=== PATIENT | female | born 2000 | race Caucasian/White ===

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

== ENCOUNTER 2021-01-30 17:37 | Emergency (ER) | payer OTHER ==
[~2021-01-30] VITALS: Ht 160 cm; Wt 95.8 kg
[~2021-01-30 17:37] MED LIST changes: +LEXA1TAB2 PO
[2021-01-30] MEDS ORDERED: BUPR150T12 (17:52)
[2021-01-30] MEDS ORDERED: PRAZ2CAP (17:52)
[2021-01-31 01:14] VITALS: BP 124/74
== END 2021-01-31 01:19 | disposition left against medical advice (07) ==
LOC: M ED 17:37
DX: Z53.21 Procedure and treatment not carried out due to patient leaving prior to being seen by health care provider (principal)

== ENCOUNTER → 2021-03-09 | Outpatient (CLI) | payer OTHER ==
[~2021-03-09] MED LIST changes: +BUPR150T12; +PRAZ2CAP
[2021-03-09 09:45] LABS: BASO # 0.1 10^3/uL (0.0-0.2); BASO % 0.8 % (0.0-1.0); EOS # 0.2 10^3/uL (0.0-0.5); EOS % 2.5 % (0.0-3.0); HEMATOCRIT 40.9 % (36.0-47.0); HEMOGLOBIN 13.3 g/dl (12.0-15.5); LYMPH # 2.7 10^3/uL (1.5-5.0); LYMPH % 37.1 % (24.0-44.0); MEAN CORPUSCULAR HEMOGLOBIN 27.7 pg (27.0-33.0); MEAN CORPUSCULAR HGB CONC 32.5 g/dl (32.0-36.5); MONO # 0.7 10^3/uL (0.0-0.8); MONO % 9.6 % (2.0-8.0); NEUTROPHILS # 3.6 10^3/uL (1.5-8.5); NEUTROPHILS % 49.6 % (36.0-66.0); PLATELET COUNT, AUTOMATED 289 10^3/uL (150-450); RED BLOOD COUNT 4.81 10^6/uL (4.00-5.40); WHITE BLOOD COUNT 7.2 10^3/uL (4.0-10.0)
[2021-03-09 10:42] LABS: HEMOGLOBIN A1c 5.1 %
[2021-03-09 11:04] LABS: ALBUMIN 3.5 GM/DL (3.2-5.2); ALT/SGPT 26 U/L (12-78); BILIRUBIN,TOTAL 0.4 MG/DL (0.2-1.0); BLOOD UREA NITROGEN 10 MG/DL (7-18); CALCIUM LEVEL 8.5 MG/DL (8.5-10.1); CARBON DIOXIDE LEVEL 29 MEQ/L (21-32); CHLORIDE LEVEL 107 MEQ/L (98-107); CHOLESTEROL LEVEL 114 MG/DL (<200); CHOLESTEROL RISK RATIO 2.235 (<5); CREATININE FOR GFR 0.67 MG/DL (0.55-1.30); GLUCOSE, FASTING 75 MG/DL (70-100); HDL CHOLESTEROL 51 MG/DL (>40); LDL CHOLESTEROL 42 MG/DL (<100); NON-HDL-C 63 MG/DL; POTASSIUM SERUM 3.7 MEQ/L (3.5-5.1); SODIUM LEVEL 141 MEQ/L (136-145); THYROID STIMULATING HORMONE 0.676 uIU/ML (0.463-3.98); TRIGLYCERIDES LEVEL 104 MG/DL (<150)
== END ==
LOC: M LAB 08:47
PROVIDERS: ATTEND Nurse Practitioner Family
DX: Z00.01 Encounter for general adult medical examination with abnormal findings (principal)

== ENCOUNTER 2021-03-17 11:53 | Emergency (ER) | payer OTHER ==
[~2021-03-17] VITALS: Ht 160 cm; Wt 93.8 kg
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
--- OUTSIDE RECORDS SUMMARY | 2021-03-17 11:59 | CCD ---
Author Author [facility] Organization [facility] Address Unknown Phone Unavailable Care Team Providers Care Donor Services Manager Name Role Phone PRATIK KIRBY MD Unavailable Unavailable PRATIK KIRBY MD Unavailable Unavailable PRATIK KIRBY MD Unavailable Unavailable PRATIK KIRBY MD Unavailable Unavailable PRATIK KIRBY MD Unavailable Unavailable PRATIK KIRBY MD Unavailable Unavailable PRATIK KIRBY MD Unavailable Unavailable PRATIK KIRBY MD Unavailable Unavailable REYES, A. CLOTH TRIMMER HAND AVIVA Unavailable [phone] REYES, A. CLOTH TRIMMER HAND AVIVA Unavailable [phone] REYES, A. CLOTH TRIMMER HAND AVIVA Unavailable [phone] REYES, A. CLOTH TRIMMER HAND AVIVA Unavailable [phone] REYES, A. CLOTH TRIMMER HAND AVIVA Unavailable [phone] REYES, A. CLOTH TRIMMER HAND AVIVA Unavailable [phone] REYES, A. CLOTH TRIMMER HAND AVIVA Unavailable [phone] REYES, A. CLOTH TRIMMER HAND AVIVA Unavailable [phone] REYES, A. CLOTH TRIMMER HAND AVIVA Unavailable [phone] REYES, A. CLOTH TRIMMER HAND AVIVA Unavailable [phone] REYES, A. CLOTH TRIMMER HAND AVIVA Unavailable [phone] REYES, A. CLOTH TRIMMER HAND AVIVA Unavailable [phone] REYES, A. CLOTH TRIMMER HAND AVIVA Unavailable [phone] REYES, A. CLOTH TRIMMER HAND AVIVA Unavailable [phone] REYES, A. CLOTH TRIMMER HAND AVIVA Unavailable [phone] Nevills, C Noemy QUALITY CONTROL DIRECTOR Unavailable Unavailable Nevills, C Noemy QUALITY CONTROL DIRECTOR Unavailable Unavailable Nevills, C Noemy QUALITY CONTROL DIRECTOR Unavailable Unavailable Nevills, C Noemy QUALITY CONTROL DIRECTOR Unavailable Unavailable Nevills, C Noemy QUALITY CONTROL DIRECTOR Unavailable Unavailable Nevills, C Noemy QUALITY CONTROL DIRECTOR Unavailable Unavailable Nevills, C Noemy QUALITY CONTROL DIRECTOR Unavailable Unavailable Nevills, C Noemy QUALITY CONTROL DIRECTOR Unavailable Unavailable Nevills, C Noemy QUALITY CONTROL DIRECTOR Unavailable Unavailable Nevills, C Noemy QUALITY CONTROL DIRECTOR Unavailable Unavailable Nevills, C Noemy QUALITY CONTROL DIRECTOR Unavailable Unavailable Nevills, C Noemy QUALITY CONTROL DIRECTOR Unavailable Unavailable Nevills, C Noemy QUALITY CONTROL DIRECTOR Unavailable Unavailable Nevills, C Noemy QUALITY CONTROL DIRECTOR Unavailable Unavailable Nevills, C Noemy QUALITY CONTROL DIRECTOR Unavailable Unavailable Nevills, C Noemy QUALITY CONTROL DIRECTOR Unavailable Unavailable Nevills, C Noemy QUALITY CONTROL DIRECTOR Unavailable Unavailable Nevills, C Noeym QUALITY CONTROL DIRECTOR Unavailable Unavailable Nevills, C Noemy QUALITY CONTROL DIRECTOR Unavailable Unavailable Nevills, C Noemy QUALITY CONTROL DIRECTOR Unavailable Unavailable Nevills, C Noemy QUALITY CONTROL DIRECTOR Unavailable Unavailable Nevills, C Noemy QUALITY CONTROL DIRECTOR Unavailable Unavailable Nevills, C Noemy QUALITY CONTROL DIRECTOR Unavailable Unavailable Nevills, C Noemy QUALITY CONTROL DIRECTOR Unavailable Unavailable Nevills, C Noemy QUALITY CONTROL DIRECTOR Unavailable Unavailable Nevills, C Noemy QUALITY CONTROL DIRECTOR Unavailable Unavailable Nevills, C Noemy QUALITY CONTROL DIRECTOR Unavailable Unavailable Nevills, C Noemy QUALITY CONTROL DIRECTOR Unavailable Unavailable Nevills, C Noemy QUALITY CONTROL DIRECTOR Unavailable Unavailable Nevills, C Noemy QUALITY CONTROL DIRECTOR Unavailable Unavailable Nevills, C Noemy QUALITY CONTROL DIRECTOR Unavailable Unavailable Nevills, C Noemy QUALITY CONTROL DIRECTOR Unavailable Unavailable Nevills, C Noemy QUALITY CONTROL DIRECTOR Unavailable Unavailable Josephine Celaya MD Unavailable Unavailable Josephine Celaya MD Unavailable Unavailable Josephine Celaya MD Unavailable Unavailable Josephine Celaya MD Unavailable Unavailable Josephine Celaya MD Unavailable Unavailable Josephine Celaya MD Unavailable Unavailable Josephine Celaya MD Unavailable Unavailable Josephine Celaya MD Unavailable Unavailable Josephine Celaya MD Unavailable Unavailable Josephine Celaya MD Unavailable Unavailable Josephine Celaya MD Unavailable Unavailable Josephine Celaya MD Unavailable Unavailable Josephine Celaya MD Unavailable Unavailable Josephine Celaya MD Unavailable Unavailable Josephine Celaya MD Unavailable Unavailable Josephine Celaya MD Unavailable Unavailable Josephine Celaya MD Unavailable Unavailable Josephine Celaya MD Unavailable Unavailable Josephine Celaya MD Unavailable Unavailable MAJAK, R RAEGAN DPM Unavailable Unavailable MAJAK, R RAEGAN DPM Unavailable Unavailable MAJAK, R RAEGAN DPM Unavailable Unavailable MAJAK, R RAEGAN DPM Unavailable Unavailable MAJAK, R RAEGAN DPM Unavailable Unavailable MAJAK, R RAEGAN DPM Unavailable Unavailable MAJAK, R RAEGAN DPM Unavailable Unavailable MAJAK, R RAEGAN DPM Unavailable Unavailable MAJAK, R RAEGAN DPM Unavailable Unavailable MAJAK, R RAEGAN DPM Unavailable Unavailable MAJAK, R RAEGAN DPM Unavailable Unavailable MAJAK, R RAEGAN DPM Unavailable Unavailable MAJAK, R RAEGAN DPM Unavailable Unavailable MAJAK, R RAEGAN DPM Unavailable Unavailable MAJAK, R RAEGAN DPM Unavailable Unavailable MAJAK, R RAEGAN DPM Unavailable Unavailable MAJAK, R RAEGAN DPM Unavailable Unavailable MAJAK, R RAEGAN DPM Unavailable Unavailable MAJAK, R RAEGAN DPM Unavailable Unavailable MAJAK, R RAEGAN DPM Unavailable Unavailable MAJAK, R RAEGAN DPM Unavailable Unavailable MAJAK, R RAEGAN DPM Unavailable Unavailable MAJAK, R RAEGAN DPM Unavailable Unavailable MAJAK, R RAEGAN DPM Unavailable Unavailable MAJAK, R RAEGAN DPM Unavailable Unavailable MAJAK, R RAEGAN DPM Unavailable Unavailable MAJAK, R RAEGAN DPM Unavailable Unavailable MAJAK, R RAEGAN DPM Unavailable Unavailable MAJAK, R RAEGAN DPM Unavailable Unavailable MAJAK, R RAEGAN DPM Unavailable Unavailable MAJAK, R RAEGAN DPM Unavailable Unavailable Agata Peña LMSW Unavailable Unavailable Nevills, Zee Salguero QUALITY CONTROL DIRECTOR Unavailable Unavailable Nevills, C Noemy QUALITY CONTROL DIRECTOR Unavailable Unavailable Nevills, C Noemy QUALITY CONTROL DIRECTOR Unavailable Unavailable Nevills, C Noemy QUALITY CONTROL DIRECTOR Unavailable Unavailable Nevills, C Noemy QUALITY CONTROL DIRECTOR Unavailable Unavailable Nevills, C Noemy QUALITY CONTROL DIRECTOR Unavailable Unavailable Nevills, C Noemy QUALITY CONTROL DIRECTOR Unavailable Unavailable Nevills, C Noemy QUALITY CONTROL DIRECTOR Unavailable Unavailable Nevills, C Noemy QUALITY CONTROL DIRECTOR Unavailable Unavailable Nevills, C Noemy QUALITY CONTROL DIRECTOR Unavailable Unavailable Nevills, C Noemy QUALITY CONTROL DIRECTOR Unavailable Unavailable Nevills, C Noemy QUALITY CONTROL DIRECTOR Unavailable Unavailable Nevills, C Noemy QUALITY CONTROL DIRECTOR Unavailable Unavailable Nevills, C Noemy QUALITY CONTROL DIRECTOR Unavailable Unavailable Nevills, C Noemy QUALITY CONTROL DIRECTOR Unavailable Unavailable Nevills, C Noemy QUALITY CONTROL DIRECTOR Unavailable Unavailable Nevills, C Noemy QUALITY CONTROL DIRECTOR Unavailable Unavailable Nevills, C Noemy QUALITY CONTROL DIRECTOR Unavailable Unavailable Nevills, C Noemy QUALITY CONTROL DIRECTOR Unavailable Unavailable Nevills, C Noemy QUALITY CONTROL DIRECTOR Unavailable Unavailable Nevills, C Noemy QUALITY CONTROL DIRECTOR Unavailable Unavailable Nevills, C Noemy QUALITY CONTROL DIRECTOR Unavailable Unavailable Nevills, C Noemy QUALITY CONTROL DIRECTOR Unavailable Unavailable Nevills, C Noemy QUALITY CONTROL DIRECTOR Unavailable Unavailable Nevills, C Noemy QUALITY CONTROL DIRECTOR Unavailable Unavailable Nevills, C Noemy QUALITY CONTROL DIRECTOR Unavailable Unavailable Nevills, C Noemy QUALITY CONTROL DIRECTOR Unavailable Unavailable Nevills, C Noemy QUALITY CONTROL DIRECTOR Unavailable Unavailable Nevills, C Noemy QUALITY CONTROL DIRECTOR Unavailable Unavailable Nevills, C Noemy QUALITY CONTROL DIRECTOR Unavailable Unavailable Nevills, C Noemy QUALITY CONTROL DIRECTOR Unavailable Unavailable Nevills, C Noemy QUALITY CONTROL DIRECTOR Unavailable Unavailable Nevills, C Noemy QUALITY CONTROL DIRECTOR Unavailable Unavailable LAMPACK, JERMAINE Unavailable Unavailable COTO, J TOMAS PA Unavailable Unavailable COTO, J TOMAS PA Unavailable Unavailable COTO, J TOMAS PA Unavailable Unavailable COTO, J TOMAS PA Unavailable Unavailable COTO, J TOMAS PA Unavailable Unavailable COTO, J TOMAS PA Unavailable Unavailable COTO, J TOMAS PA Unavailable Unavailable COTO, J TOMAS PA Unavailable Unavailable COTO, J TOMAS PA Unavailable Unavailable COTO, J TOMAS PA Unavailable Unavailable COTO, J TOMAS PA Unavailable Unavailable COTO, J TOMAS PA Unavailable Unavailable COTO, J TOMAS PA Unavailable Unavailable COTO, J TOMAS PA Unavailable Unavailable COTO, J TOMAS PA Unavailable Unavailable COTO, J TOMAS PA Unavailable Unavailable COTO, J TOMAS PA Unavailable Unavailable COTO, J TOMAS PA Unavailable Unavailable COTO, J TOMAS PA Unavailable Unavailable COTO, J TOMAS PA Unavailable Unavailable COTO, J TOMAS PA Unavailable Unavailable COTO, J TOMAS PA Unavailable Unavailable COTO, J TOMAS PA Unavailable Unavailable COTO, J TOMAS PA Unavailable Unavailable Valerie COTO TOMAS PA Unavailable Unavailable Valerie COTO TOMAS PA Unavailable Unavailable Valerie COTO TOMAS PA Unavailable Unavailable Re-disclosure Warning The records that you are about to access may contain information from federally-assisted alcohol or drug abuse programs. If such information is present, then the following federally mandated warning applies: This information has been disclosed to you from records protected by federal confidentiality rules (42 CFR part 2). The federal rules prohibit you from making any further disclosure of this information unless further disclosure is expressly permitted by the written consent of the person to whom it pertains or as otherwise permitted by 42 CFR part 2. A general authorization for the release of medical or other information is NOT sufficient for this purpose. The Federal rules restrict any use of the information to criminally investigate or prosecute any alcohol or drug abuse patient.The records that you are about to access may contain highly sensitive health information, the redisclosure of which is protected by Article 27-F of the [facility] Public Health law. If you continue you may have access to information: Regarding HIV / AIDS; Provided by facilities licensed or operated by the [facility] Office of Mental Health; or Provided by the [facility] Office for People With Developmental Disabilities. If such information is present, then the following [facility] mandated warning applies: This information has been disclosed to you from confidential records which are protected by state law. State law prohibits you from making any further disclosure of this information without the specific written consent of the person to whom it pertains, or as otherwise permitted by law. Any unauthorized further disclosure in violation of state law may result in a fine or mcc sentence or both. A general authorization for the release of medical or other information is NOT sufficient authorization for further disc losure. Allergies and Adverse Reactions Type Description Substance Reaction Status Data Source(s ) Propensity to adverse reactions NO KNOWN ALLERGIES NO KNOWN ALLERGIES [facility] Encounters Encounter Providers Location Date Indications Data Source(s ) Outpatient Attender: AVIVA CHAMBERS 02/27 07:26:39 AM EDT - 03/09/2021 07:50:34 AM EDT [facility] ([facility] ) Outpatient Attender: TOMAS COTO PAAttender: JERMAINE HUNT 02/10/2021 12:37:00 PM EDT - 02/10/2021 12:37:00 PM EDT [facility] Outpatient Attender: TOMAS COTO PAAttender: JERMAINE UMANA GILBERT 02/10/2021 12:37:00 PM EDT - 02/10/2021 12:37:00 PM EDT [facility] Outpatient Attender: JERMAINE UMANAGILBERT 2020 02:51:00 PM EDT - 01/26/2021 02:51:00 PM EDT [facility] Outpatient Attender: JERMAINE UMANAGILBERT 2020 01:37:00 PM EDT - 01/01/2021 01:37:00 PM EDT [facility] Outpatient Attender: JERMAINE UMANAGILBERT 2020 01:55:00 PM EDT - 12/08/2020 01:55:00 PM EDT [facility] Outpatient Attender: TOMAS TSAI 11/19 02:41:00 PM EDT - 11/19/2020 02:41:00 PM EDT [facility] Outpatient Attender: JERMAINE AVELAR 2020 01:56:00 PM EDT - 11/19/2020 01:56:00 PM EDT [facility] Outpatient Attender: JERMAINE UMANAGILBERT 2020 02:13:00 PM EDT - 11/12/2020 02:13:00 PM EDT [facility] Inpatient Attender: PRATIK Best nder: Josephine Celaya MDAdmitter: PRATIK KIRBY MD [id number] 11/06/2020 12:58:00 AM EDT - 11/10/2020 11:33:00 AM EDT Major depressive disorder, single episode, unspecified [facility] Major depressive disorder, single episod e, unspecified Patient discharged. Outpatient Attender: Shannon Peña LMSW 01/2021 11:59:00 AM EDT - 11/05/2020 11:59:00 AM EDT [facility] Outpatient Attender: Noemy Diggs NP 10/16 01:43:00 PM EDT - 10/16/2020 01:43:00 PM EDT [facility] 08[facility]00 AM [facility]T [facility] Outpatient Attender: Noemy Diggs NP [facility] 09/12 10:20:00 AM EDT [facility] ([facility]) Outpatient Attender: Noemy Diggs QUALITY CONTROL DIRECTOR 09/12 10:06:00 AM EDT - 09/12/2020 10:06:00 AM EDT [facility] Outpatient Attender: RAEGAN RICO [facility] Office 08/28 08:00:00 AM EDT [facility] ([facility] Outpatient Attender: Noemy Diggs QUALITY CONTROL DIRECTOR 08/27 01:20:00 PM EDT - 08/27/2020 01:20:00 PM EDT [facility] Immunizations Vaccine Date Status Description Data Source(s) COVID-19 VACCINE Moderna 02/12/2021 12:00:00 AM EDT completed [facility] Vaccine Series Complete: YESThis Data wa s Submitted to [facility] Via [employer]. COVID-19 VACCINE Moderna 11/12/2020 12:00:00 AM EDT completed [facility] Vaccine Series Complete: NOThis Data was Submitted to [facility] Via [employer]. Medications Medication Brand Name Start Date Product Form Dose Route Admi nistrative Instructions Pharmacy Instructions Status Indications Reaction Description Data Source(s) 24 HR Bupropion Hydrochloride 150 MG Extended Release Oral T ablet BUPROPION HCL 02/05/2021 12:00:00 AM EDT tablet extended release 24 hr 30 TAKE ONE TABLET BY MOUTH EVERY DAY TAKE ONE TABLET BY MOUTH EVERY DAY SOLD: 02/06/2021 [facility] 2 mg 02/05/2021 12:00:00 AM EDT capsule 30 TAKE ONE CAPSULE BY MOUTH AT BEDTIME TAKE ONE CAPSULE BY MOUTH AT BEDTIME SOLD: 02/06/2021 [facility] Escitalopram 20 MG Oral Tablet ESCITALOPRAM OXALATE 02/05/2021 1 2:00:00 AM EDT tablet 30 TAKE ONE TABLET BY MOUTH EVERY D AY TAKE ONE TABLET BY MOUTH EVERY DAY SOLD: 02/06/2021 [facility] 2 mg 12/12/2020 12:00:00 AM EDT capsule 30 TAKE ONE CAPSULE BY MOUTH AT BEDTIME TAKE ONE CAPSULE BY MOUTH AT BEDTIME SOLD: 12/13/2020 [facility] 24 HR Bupropion Hydrochloride 150 MG Extended Release Oral T ablet BUPROPION HCL 12/12/2020 12:00:00 AM EDT tablet extended release 24 hr 30 TAKE ONE TABLET BY MOUTH EVERY DAY TAKE ONE TABLET BY MOUTH EVERY DAY SOLD: 12/13/2020 [facility] Escitalopram 20 MG Oral Tablet ESCITALOPRAM OXALATE 12/02/2020 1 2:00:00 AM EDT tablet 30 TAKE ONE TABLET BY MOUTH EVERY D AY TAKE ONE TABLET BY MOUTH EVERY DAY SOLD: 12/13/2020 [facility] 24 HR Bupropion Hydrochloride 150 MG Ext ended Release Oral Tablet buPROPion (WELLBUTRIN XL) 24 hr tablet 150 mg buPROPion (WELLBUTRIN XL) 24 hr tablet 1 50 mg 11/11/2020 09:00:00 AM EDT 150 mg Oral active 150 mg, Oral, Daily Standard, First dose on Tue11/11/20 at 0900, For 30 days
Do not crush or chew
[facility] Medication administered onsite 24 HR Bupropion Hydrochloride 150 MG Ext ended Release Oral Tablet buPROPion HCl ER (XL) 150 MG Oral Tablet Extended Release 24 Hour (WELLBUTRIN XL) buPROPion HCl ER (XL) 150 MG Oral Tablet Extended Release 24 Hour (WELLBUTRIN XL) 11/11/2020 12:00:00 AM EDT 150 mg Oral active Take 1 tablet by mouth daily [facility] Escitalopram 10 MG Oral Tablet Escitalopram Oxalate 10 MG Oral Tablet (LEXAPRO) Escitalopram Oxalate 10 MG Oral Tablet (LEXAPRO) 11/10/2020 12:00:00 AM EDT 20 mg Oral active Major Depressive Disorder Take 2 tablets by mouth daily Indications: Major Depressive Disorder [facility] Major Depressive Disorder Prazosin 2 MG Oral Capsule Prazosin HCl 2 MG Oral Caps ule (MINIPRESS) Prazosin HCl 2 MG Oral Capsule (MINIPRESS) 11/10/2020 12:00:00 AM EDT 2 mg Oral active Take 1 capsule by mouth nightly [facility] 2 mg 11/10/2020 12:00:00 AM EDT capsule 30 TAKE ONE CAPSULE BY MOUTH EVERY EVENING TAKE ONE CAPSULE BY MOUTH EVERY EVENING SOLD: 11/10/2020 [facility] 24 HR Bupropion Hydrochloride 150 MG Extended Release Oral T ablet BUPROPION HCL 11/10/2020 12:00:00 AM EDT tablet extended release 24 hr 30 TAKE ONE TABLET BY MOUTH EVERY DAY TAKE ONE TABLET BY MOUTH EVERY DAY SOLD: 11/10/2020 [facility] Prazosin 1 MG Oral Capsule prazosin (MINIPRESS) capsul e 2 mg prazosin (MINIPRESS) capsule 2 mg 11/08/2020 10:00:00 PM EDT 2 mg Oral active 2 mg, Oral, Nightly, First dose (after last modification) on [facility] 11/08/20 at 2200, For 28 doses
Check vital signs before administering
[facility] Medication administered onsite 12 HR Bupropion Hydrochloride 150 MG Ext ended Release Oral Tablet buPROPion (WELLBUTRIN SR) 12 hr tablet 150 mg buPROPion (WELLBUTRIN SR) 12 hr tablet 1 50 mg 11/07/2020 11:30:00 AM EDT 150 mg Oral aborted 150 mg, Oral, User Specified (2 times per day), First dose on Tue11/07/20 at 1130, For 30 days
Do not crush or chew
[facility] Medication administered onsite Prazosin 1 MG Oral Capsule prazosin (MINIPRESS) capsul e 1 mg prazosin (MINIPRESS) capsule 1 mg 11/06/2020 10:00:00 PM EDT 1 mg Oral aborted 1 mg, Oral, Nightly, First dose on [facility] 11/06/20 at 2200, For 30 days
Check vital signs before administering
[facility] Medication administered onsite Escitalopram 10 MG Oral Tablet escitalopram (LEXAPRO) tablet 20 mg escitalopram (LEXAPRO) tablet 20 mg 11/06/2020 09:00:00 AM EDT 20 mg Oral active Major Depressive Disorder 20 mg, Oral, Daily Standard , First dose on [facility] 11/06/20 at 0900, For 30 days [facility] Major Depressive Disorder Medication administered onsite acetaminophen (TYLENOL) tablet 650 mg 11/06/2020 05:50:40 AM EDT 650 mg Oral active [Order 1 Start ] Name: acetaminophen (TYLENOL) tablet 650 mg Signed Summary: 650 mg, Oral, Every 4 hours PRN, Mild Pain (Pain Scale Score 1-3), Headaches, Starting on Tue11/06/20 at 0550, For 30 days
MDD 4
[Order 1 End] [Order 2 Start] Name: acetaminophen (TYLENOL) tablet 650 mg Signed Summary: 650 mg, Oral, Every 4 hours PRN, Moderate Pain (Pain Scale Score 4- 6), Starting on Tue11/06/20 at 0550, For 30 days
MDD 4
[Order 2 End] [Order 3 Start] Name: acetaminophen (TYLENOL) tablet 650 mg Signed Summary: 650 mg, Oral, Every 4 hours PRN, Severe Pain (Pain Scale Score 7-10), Starting on Tue11/06/20 at 0550, For 30 days
MDD 4
[Order 3 End] [facility] Medication administered onsite Haloperidol 5 MG Oral Tablet haloperidol (HALDOL) tabl et 5 mg haloperidol (HALDOL) tablet 5 mg 11/06/2020 05:50:39 AM EDT 5 mg Oral active 5 mg, Oral, Every 6 hours PRN, Agitation, Psychotic symptoms, Starting on Tue11/06/20 at 0550, For 30 days
MDD 4
[facility] Medication administered onsite Nicotine 2 MG Oral Lozenge nicotine (NICORETTE) lozeng e 2 mg nicotine (NICORETTE) lozenge 2 mg 11/06/2020 05:50:39 AM EDT 2 mg Mouth/Th roat active 2 mg, Mouth/Throat, Every 2 hours PRN, Smoking cessation, Starting on Tue11/06/20 at 0550, For 30 days
Should not be chewed or swallowed; allow to dissolve slowly (~20-30 minutes)
[facility] Medication administered onsite Ondansetron 4 MG Disintegrating Oral Tab let ondansetron (ZOFRAN-ODT) disintegrating tablet 4 mg ondansetron (ZOFRAN-ODT) disintegrating tablet 4 mg 11/06/2020 05:50:39 AM EDT 4 mg Oral active 4 mg, Oral, Every 6 hours PRN, Nausea, Starting on Tue11/06/20 at 0550, For 30 days
Dissolve on tongue.
[facility] Medication administered onsite Aluminum Hydroxide 40 MG/ML / Magnesium Hydroxide 40 MG/ML / Simethicone 4 MG/ML Oral Suspension aluminum & magnesium hydroxide-simethicone (MAALOX PLUS) 200-200-20 MG/5ML oral suspension 30 mL aluminum & magnesium hydroxide- simethicone (MAALOX PLUS) 200-200-20 MG/5ML oral suspension 30 mL 11/06/2020 05:50:39 AM EDT 30 mL Oral active 30 mL, Oral, Every 4 hours PRN, Heartburn, Indigestion, Starting on [facility] 11/06/20 at 0550, For 30 days
MDD 4
[facility] Medication administered onsite Hydroxyzine Hydrochloride 50 MG Oral Tablet hydrOXYzin e (ATARAX) tablet 50 mg hydrOXYzine (ATARAX) tablet 50 mg 11/06/2020 05:50:39 AM EDT 50 mg Oral active 50 mg, Oral, Every 6 hours PRN, Anxiety, Sleep, Starting on [facility] 11/06/20 at 0550, For 30 days [facility] Medication administered onsite Magnesium Hydroxide 80 MG/ML Oral Suspen dong magnesium hydroxide (MILK OF MAGNESIA) 400 MG/5ML oral suspension 30 mL magnesium hydroxide (MILK OF MAGNESIA) 400 MG/5ML oral suspension 30 mL 11/06/2020 05:50:39 AM EDT 30 mL Oral active 30 mL, Oral, D aily PRN, Constipation, Starting on [facility] 11/06/20 at 0550, For 30 days
If serum creatinine > 2 notify provider before administering.
[facility] Medication administered onsite Escitalopram 20 MG Oral Tablet ESCITALOPRAM OXALATE 11/03/2020 1 2:00:00 AM EDT tablet 30 TAKE ONE TABLET BY MOUTH EVERY D AY TAKE ONE TABLET BY MOUTH EVERY DAY SOLD: 11/10/2020 [facility] Escitalopram 20 MG Oral Tablet ESCITALOPRAM OXALATE 10/08/2020 1 2:00:00 AM EDT tablet 30 TAKE ONE TABLET BY MOUTH EVERY D AY TAKE ONE TABLET BY MOUTH EVERY DAY SOLD: 10/09/2020 [facility] Escitalopram 20 MG Oral Tablet [Lexapro] Lexapro 09/12/2020 12:00: 00 AM EDT ORAL active [facility] ([facility]) Hydrocortisone 10 MG/ML / Neomycin 3.5 M G/ML / Polymyxin B 71176 UNT/ML Otic Solution 3.5-10,000-1 mg/mL-unit/mL-% NEOMYCIN/POLYMYXIN B/HYDROCORT 09/12/2020 12:00:00 AM EDT solution 10 APPLY ONE DROP T O BASE OF NAIL AFTER BETADINE SOAKS DIRECTED APPLY ONE DROP TO BASE OF NAIL AFTER BET ADINE SOAKS DIRECTED SOLD: 09/12/2020 [facility] Escitalopram 20 MG Oral Tablet ESCITALOPRAM OXALATE 09/12/2020 1 2:00:00 AM EDT tablet 30 TAKE ONE TABLET BY MOUTH EVERY D AY TAKE ONE TABLET BY MOUTH EVERY DAY SOLD: 09/12/2020 [facility] Hydrocortisone 10 MG/ML / Neomycin 3.5 M G/ML / Polymyxin B 24809 UNT/ML Otic Solution Pcdyqryu-Vzazoiclh-FP 09/11/2020 12:00:00 AM EDT active [facility] No Active Medications 09/11/2020 12:00:00 AM EDT completed [facility] ([facility] No Active Medications 08/27/2020 12:00:00 AM EDT completed [facility] ([facility]) 0.35 mg 05/30/2020 12:00:00 AM EST tablet 84 TAKE ONE TABLET BY MOUTH EVERY DAY TAKE ONE TABLET BY MOUTH EVERY DAY SOLD: 06/01/2020 [facility] Escitalopram 10 MG Oral Tablet Escitalopram Oxalate 10 MG Oral Tablet (LEXAPRO) Escitalopram Oxalate 10 MG Oral Tablet (LEXAPRO) 20 mg Oral aborted Major Depressive Disorder Take 20 mg by mouth daily In dications: Major Depressive Disorder [facility] Major Depressive Disorder Ranitidine 150 MG Oral Tablet ranitidine (ZANTAC) 150 MG tablet ranitidine (ZANTAC) 150 MG tablet 150 mg Oral aborted Take 150 mg by mouth Two Times Daily [facility] Insurance Providers Payer name Policy type / Coverage type Policy ID Covered constitution party ID Covered constitution party's relationship to bettencourt Policy [employer] Plan Information [facility] I [id number] Self [id number] [facility] MCDHMO [id number] SP [id number] [facility] I [id number] Self [id number] [facility] I [id number] Self [id number] [facility] COMMUNITY PL [id number] S [id number] [facility] Commercial Insurance Co. [id number] Self [id number] [facility] Commercial Insurance Co. [id number] Self [id number] [facility] XIX MC [id number] 18 [id number] [facility] COMMUNTY PLAN MC [id number] 18 [id number] MEDICAID [id number] S [id number] SELF PAY S BH [facility] COMMUNITY PLAN CO [id number] 18 [id number] [facility](MCAID) O [id number] S [id number] [facility] MCDO [id number] SP [id number] [facility] MCDO [id number] SP [id number] HMO BLUE [id number] SP [id number] Problems, Conditions, and Diagnoses Code Display Name Description Problem Type Effective Dates Data Source(s) F419 Anxiety disorder, unspecified Anxiety disorder, unspec ified Diagnosis 02/10/2021 12:37:00 PM [facility] F609 Personality disorder, unspecified Personality di sorder, unspecified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 98.034 kg [facility] ([facility]) Body height 63 [in_i] 63 [in_i] [facility] ([facility]) 5'3" Body mass index (BMI) [Ratio] 38.3 kg/m2 38.3 k g/m2 [facility] ([facility]) Heart rate 72 /min 72 /min [facility] ([facility]) Respiratory rate 18 /min 18 /min [facility] ( [facility]) Heart rate 74 /min 74 /min [facility] ([facility]) Systolic blood pressure 124 mm[Hg] 124 mm[Hg] [facility] ([facility]) Body height 63 [in_i] 63 [in_i] [facility] ([facility]) 5'3" Body height [Percentile] 31 % 31 % [facility] ([facility]) Body mass index (BMI) [Ratio] 38.4 kg/m2 38.4 k g/m2 [facility] ([facility]) Body mass index (BMI) [Percentile] 98 % 9 8 % [facility] ([facility]) Diastolic blood pressure 82 mm[Hg] 82 mm[Hg] [facility] ([facility]) Body temperature 97.9 [degF] 97.9 [degF] [facility] ([facility]) Oxygen saturation in Arterial blood by Pulse oximetry 98 % 98 % [facility] ([facility]) Body weight 217.00 [lb_av] 217.00 [lb_av] [facility] T ([facility]) Body weight 98.431 kg 98.431 kg [facility] ([facility]) Body surface area Derived from formula 2.00 m2 2.00 m2 [facility] ([facility]) Systolic blood pressure 132 mm[Hg] 132 mm[Hg] M [facility] ([facility] Diastolic blood pressure 84 mm[Hg] 84 mm[Hg] [facility] ([facility] Body height 63 [in_i] 63 [in_i] [facility] ([facility] 5'3" Body weight 217.00 [lb_av] 217.00 [lb_av] [facility] T ([facility] Heart rate 100 /min 100 /min [facility] ([facility] Body mass index (BMI) [Ratio] 38.4 kg/m2 38.4 k g/m2 [facility] ([facility] Body height [Percentile] 31 % 31 % [facility] ([facility]) Body height 63 [in_i] 63 [in_i] [facility] 5'3" Body mass index (BMI) [Ratio] 38.5 kg/m2 38.5 k g/m2 [facility] ([facility]) Body mass index (BMI) [Percentile] 98 % 9 8 % [facility]) Systolic blood pressure 132 mm[Hg] 132 mm[Hg] M [facility] ([facility]) Diastolic blood pressure 84 mm[Hg] 84 mm[Hg] [facility]) Heart rate 100 /min 100 /min [facility] Body surface area Derived from formula 2.00 m2 2.00 m2 [facility] ([facility]) Body temperature 98.2 [degF] 98.2 [degF] [facility] ([facility]) Respiratory rate 18 /min 18 /min [facility] ( [facility]) Oxygen saturation in Arterial blood by Pulse oximetry 99 % 99 % [facility] ([facility]) Body weight 217.38 [lb_av] 217.38 [lb_av] [facility] T ([facility]) Body weight 98.601 kg 98.601 kg [facility] ([facility]) ID Date Data Source [id number] 11/19/2020 08:34:[address] [facility] Name Value Range Interpretation Code Description Data Source(s) WEIGHT RECORDED 210.6 lb 210.6 lb [facility] Body height Measured 63 in 63 in [facility] TRANSFER FROM [facility] Patient Treatment Plan of Care Planned Activity Planned Date Details Description Data Source (s) 24 HR Bupropion Hydrochloride 150 MG Extended Release Oral Tablet 11/11/2020 09:00:00 AM [facility]spital 24 HR Bupropion Hydrochloride 150 MG Extended Release Oral Tablet 11/11/2020 12:00:00 AM [facility] Escitalopram 10 MG Oral Tablet 11/10/2020 12:00:00 AM [facility] Prazosin 2 MG Oral Capsule 11/10/2020 12:00:00 AM [facility] acetaminophen (TYLENOL) tablet 650 mg 11/06/2020 05:50:40 AM [facility] Magnesium Hydroxide 80 MG/ML Oral Suspension 11/06/2020 05:50:39 AM [facility] Aluminum Hydroxide 40 MG/ML / Magnesium Hydroxide 40 MG/ML / Simethicone 4 MG/ML Oral Suspension 11/06/2020 05:50:39 AM [facility] Ondansetron 4 MG Disintegrating Oral Tablet 11/06/2020 05:50:39 AM [facility] Nicotine 2 MG Oral Lozenge 11/06/2020 05:50:39 AM [facility] Haloperidol 5 MG Oral Tablet 11/06/2020 05:50:39 AM [facility] Escitalopram 10 MG Oral Tablet [facility] Ranitidine 150 MG Oral Tablet [facility]
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
--- OUTSIDE RECORDS SUMMARY | 2021-03-17 19:27 | CCD ---
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 [id number] 03/09/2021 09:11:00 AM EDT [facility] ([facility]) Name Value Range Interpretation Code Description Data Tina rce(s) Supporting Document(s) Hemoglobin A1c 5.1 % Normal (applies to non-numeric r esults) [facility] ([facility]) <content>REFERENCE RANGES:</content><br/ ><content></content>
<content><=5.6% NORMAL</content>
<content>5.7-6.4% SUGGESTS IMPAIRED GLUCOSE METABOLISM/PREDIABETIC</content>
<content>>= 6.5% ABNORMAL</content>
<content></content> Estimated Average Glucose 100 mg/dL 60-110 Normal (applies to non-numeric results) [facility] ([facility]) ID Date Data Source [id number] 03/09/2021 09:11:00 AM EDT [facility] ([facility]) Name Value Range Interpretation Code Description Data Tina rce(s) Supporting Document(s) Red Blood Count 4.81 10 4.00-5.40 Normal (applies to non-numeric results) [facility] ([facility]) White Blood Count 7.2 10 4.0-10.0 Normal (applies to non-numeri c results) [facility] ([facility]) Hematocrit 40.9 % 36.0-47.0 Normal (applies to non-numeric resul ts) [facility] ([facility]) Hemoglobin 13.3 g/dL 12.0-15.5 Normal (applies to non-numeric resul ts) [facility] ([facility]) Mean Corpuscular Volume 85.0 fl 80.0-96.0 Normal ( applies to non-numeric results) [facility] ([facility]) Mean Corpuscular Hemoglobin 27.7 pg 27.0-33.0 Norm al (applies to non-numeric results) [facility] ([facility]) Mean Corpuscular HGB Conc 32.5 g/dL 32.0-36.5 Normal (applies to non-numeric results) [facility] ([facility]) Neutrophils % 49.6 % 36.0-66.0 Normal (applies to non-numeric re sults) [facility] ([facility]) Platelet Count, Automated 289 10 150-450 Normal (applies to non-numeric results) [facility] ([facility]) Red Cell Distribution Width 12.7 % 11.5-14.5 Norm al (applies to non-numeric results) [facility] ([facility]) [place] % 9.6 % 2.0-8.0 Above high normal [facility] ([facility]) Lymph % 37.1 % 24.0-44.0 Normal (applies to non-numeric resul ts) [facility] ([facility]) Baso % 0.8 % 0.0-1.0 Normal (applies to non-numeric resul ts) [facility] ([facility]) Eos % 2.5 % 0.0-3.0 Normal (applies to non-numeric resul ts) [facility] ([facility]) Immature Granulocyte % 0.4 % 0-3.0 Normal (applies to non-n umeric results) [facility] ([facility]) Nucleated Red Blood Cell % 0.0 % 0-0 Normal (applies to n on-numeric results) [facility] ([facility]) Lymph # 2.7 10 1.5-5.0 Normal (applies to non-numeric resul ts) [facility] ([facility]) Neutrophils # 3.6 10 1.5-8.5 Normal (applies to non-numeric re sults) [facility] ([facility]) Baso # 0.1 10 0.0-0.2 Normal (applies to non-numeric resul ts) [facility] ([facility]) [place] # 0.7 10 0.0-0.8 Normal (applies to non-numeric resul ts) [facility] ([facility]) Eos # 0.2 10 0.0-0.5 Normal (applies to non-numeric resul ts) [facility] ([facility]) ID Date Data Source [id number] 11/19/2020 03:37:00 PM EDT [facility] ([facility]) Name Value Range Interpretation Code Description Data Tina rce(s) Supporting Document(s) Laboratory test finding (navigational concept) Laboratory test result [facility] ([facility]) {DIAGNOSIS: F33.0~{MEDICATIONS/DECLARED : BUPROPION, LEXAPRO, PRAZOSIN~{PRESCRIPTION INFO:~{PRES PDF Laboratory test result [facility] ([facility]) {DIAGNOSIS: F33.0~{MEDICATIONS/DECLARED : BUPROPION, LEXAPRO, PRAZOSIN~{PRESCRIPTION INFO:~{PRES ID Date Data Source [id number] 11/29/2020 05:08:00 PM EDT [facility] Name Value Range Interpretation Code Description Data Tina rce(s) Supporting Document(s) Drugs identified in Urine FINAL [facility] TOXASSURE SELECT 13 (MW) Test Result Flag [...] clinical consultation, please call . Report . [facility] ID Date Data Source [id number] 11/10/2020 03:58:56 PM EDT [facility] Name Value Range Interpretation Code Description Data Tina rce(s) Supporting Document(s) Discharge Summary [facility] FQWDIr6mXnOZRjAg40/YIQpzAOSba1TfTUjgZWw6OZxjSBCsK6TiDDU0bV5ySJR9YPmGZdHwFiJdFkV9 lbm [file] ICAgICAgICAgICAgICAgICAgICAgICAgICAgICAgICAgICAgICAgICAgICAgICAgICAgICAgICAgICAg DDDvEAUqDHMcTEGqQVJxMFToNGBpSDNaGGJbLSSfMGCjRWOuMH0KAHVtWHQoXIGtESIvPVMiSITeAKXj ICAgICAgICAgICAgICAgICAgICAgICAgICAgICAgIC JpFYQiRHYyFDEqJAMqUVJhOSTvLTFgHIXyZQMySDGuBKPoSURmRLDmESZzBKCxDH7YJFJgWABcYYErHZ AgICAgICAgICAgICAgICAgICAgICAgICAgICAgICAgICAgICAgICAgICAgICAgICAgICAgICAgICAgIC VrMVDyNBNgEIXlORJmOTGbCWZiBMBuYNAvAUPmTQ1Y ICAgICAgICAgICAgICAgICAgICAgICAgICAgICAgICAgICAgICAgICAgICAgICAgICAgICAgICAgICAg CXUjKDWlZSFhJXToQZJhQBAiZKUqEVNaCUPySMInJQFoXOCvNOFyJQ3RDUCmWKBhLJJaJVKlOYQrDVMs ICAgICAgICAgICAgICAgICAgICAgICAgICAgICAgIC SwLLCuLFToKUMqOEErSWZeYLBxBLNgBKMbCOHdTUEhLBOkTXMzYVRfVYEwRXOpPLWqTQ0WGYKmMGGmPQ AgICAgICAgICAgICAgICAgICAgICAgICAgICAgICAgICAgICAgICAgICAgICAgICAgICAgICAgICAgIC AgICAgICAgICAgICAgICAgICAgICAgICAgICAgICAg CD2IRYFbSKRwVVTzEQDlMKRpZLNySWQzMADnEHXhAFMtNRGpBXTfOLDqAJUzPHViQNSzUPNgCIKaFWFx DZCmSDZjOQWvPDXlKQUhXTAwUTXeTFEsYKZvPLMmZVXcVKZfNWPoCXTsMQ1ZVMAbCLRrCCZoZZQuRUXo ICAgICAgICAgICAgICAgICAgICAgICAgICAgICAgIC NpTPCqZZAvRUNhTCQuMFUzOYSvKGMrPORbDONsBFDaGCSnJETdJLOwAWWpAFMwRMSyZLYyWG3LPTGaHV AgICAgICAgICAgICAgICAgICAgICAgICAgICAgICAgICAgICAgICAgICAgICAgICAgICAgICAgICAgIC AgICAgICAgICAgICAgICAgICAgICAgICAgICAgICAg DUSaKL5JWYYzPRJxPEGvGBTmDIXeJTRmVFIoIYUfFEGxHWIePHTuTVUmDJJoMDWbFBQiDRCxIENvZYWw RBLaMPHtXXYiTDXwLRVzBSEnEZAyWLTnZIUmEFGzYLCiCUYgZXYtTFIkMIGyKW2LPO64jPQle7R3JQGz JY1iprb/Vk1PWGqcirUzwAKhSX9EFzBrJX4obt8XWi UjWD8pyd2KDOxDQrVjI0S1yWTwSQNkKQBHChFaB92nUGpxBd00YUgeMKFuLeKdIGo2Ir2BFiZyX9vkUE VpGlW2UVXhBsN9RHLhOqX9TIByGsSmPFMfPKArYTPwHTWUZOL0WPSyOwUqReNrOXCeELlcIPNAYEUnST GgUxVwTZuoUW0Ud2VazTU4IFt+Ii7YQZ4cu9VhDVr1 AHVuIA4ryn8ZVUgSKwGxS6UwzkN4ZCH6MPWvSq1TJSLnRPDlzHF1WGIaTRGJCcFcN7DziW77LFKJHm4+ EPhwvjJjLflTKdH2OBSji3DgXWk7YF8TUVMrWJl2vJLyRGbyR2xmxaxiJLD7nK0peivbUlurRABwlPwx VWrvKI9rDY1OWSY4YOCsVNUxGeMbKYVtPKxgRrSXOC qMQrWrJ6Qbb3SoJyL7DUWfVpDdAJmrSRQnPfZ0WO96bDeuKY1ICEPsJGJzLC10TBQ1EEKxDy7IKj5FWa FmMQ8wlq8CSsXtIUJvHxuZIfj6RQvgBR9TzQIuY5TdlPIbg3xHJvGkV4GNSJZ5GZFuQz8XZKVlTpJgWQ SaURoxIX3cYMDvWCAPgUrtsiN7FF7ILS8gohJnJS0L NfBaFr1hSb7CVmSwG5NxV7SqJWBdPIOLATdnBH9AFDorEK2jBK9So0GZnHWakD7uri5IMGHhNXPfTpbb cu0OTrxjT5T3xFdkGUObEWhxMPERWNeqIM8SNLXuWPK0VST9TvIjMOOBPeKfA42cHN0MT0Sng89dLdO0 QIFyAzCzMZllUO98nDzgbcIrmEKwvKdsKT0DBh7+DQ sbenHxTzyHYwvuSKIODiJsGnWQVbXhRLFgCROrMGEvTmK8ZlErRs7RSAMfSQBnYDXwChRnPTDeBHSrDP yjQNYcBERcBZI9IQSqXHSaME0UZtJoIFErMgBaLSLhEAEfKQOpxc3NVRFbTIRxHRI9QoYpJWGkRNJwPX tnGXWoIWI3IsTaXCYhTKTjVI2QNvGfRFGjJTY3OSZc JBXkBQEbri8TNYWaLVIcFVQpNUJoXLQiMRCbTExlZHOrAIO5UBY6ZKKyHOHqPY1LUbViGZWrVPQ3KQFc DNHjXIUrga8QBTRnNUZpKgB9HOVkFCNaPAUcWYzlPHWjDQG1YMJgNJFzOCMtYT8GZjCfJNLvKPI1YOns MBUfUXNsem0WTJHnOAFcXBM5MFQwAFFtHHCuZJhyDE BzLSXiFkE0IIAkTKWdXN8INvHfTGEhPxKpHFIvZBBrZLKokw8LIQGqQNVnCENrLkKzGIFgVLObJTkoHT XeIHC5UHK3GSAoPYSaUH6RPwYlSHFdZeg8UUYeOMOzRMFltn8AGESmNEAqBWMuKpZqIVSvMPNsICznJQ ZtYJPuNRAdAIVfPXZkGU4CDdBoKMRtHfMgEPpdPGGt ANCttl6EYEJtWHBlWZD2BPGfGUXiEBBaORleWJXbIQR3ZhZ7YUIlOAMdJB0GVwXaUVFcBzE2UTUfEZEt KXYyvv2OSQMnYWFbQvnwHCXcSMMiOXJiWDzxPYJqWLZ9ZsakHDJsWEIaYO9FYmCkAHPbEfq4MZQxVUCh HBKulb0KJORnVQZoVHY1TsKmNBGkRYHdRQmwLFTtWO O2RJMeSPTgPNHoGP4JPfTlAAPgLyflHOGhVLGfWJUihz1JQHNjIKElTDXdFgClFRVfMLCuNEtfKNUoUI SnJphcUVXhLCDzCN8UYzYnNKSmQAO5CJbaJDPxDWTczx9IFYWuDCJ6CCv3HyAtDLMtXFPiQKdpHJHmVW XyTkGiIZVaQUBwJJ8OJnJiDISqEBE7JgWkTNKiNIXo cq7OQRHlDMH4GpTqWnAhEROhPDEmHJqnWPJlBDNyXAGoKKNwZVGrND3FBdWzYLGzNTI1JtpjFPZcDLGb nw7HVWPvBWJ3UNSuBBDcDVZfEGPgNGjaGXLhLMY4Jjn6TPMtOVHeGN8AYiYiQNJuRAD3UqZnVCPwQLBu ua0WFQHdULJ4RAY6VxPlWRXcOKQkYYbfRYUbYSE8KK U3WMOjONUmFI0QQxVlLNBaCYQ9WRGjBOEpQIDmjb7IRSHmGML1DJK0VIUaEFZsANZwTTaqKYIjZOKqVR FtBGUpSAYyZX8CQaYnFBZrEzAkWialGJBaWSByof7BXNVpUSY9FZE0MrOnVBAmBHTnNPzsCSEdGGOaAB Z4VYYbFJTnZW2SMzSoOODiDiS1LOUfPJBtTFIpkh3A OUDwYJI3GHk5ZaIgRILdHFUjRBugJDYiCTYjEPCsVESwUQFrVY2BOqPjPIZfVkCaKvGcGMRyZPLfkh0M WWKxLEF2RuI8JxOgIRRbDDSeQRymLXNeVDXaJJVnAJMqCSMySP3SGrFeXRFtBgB7FUVePPIzWCStcf7L HOUaYYZ2NKE5TsEwTDMlSHLcMIfwPOGfGWG0FUN1HT FhNOUmEC3FIxQdLVBpLaK8DkriYXHbFWVkgv6BlRRylMtidi7PLDtEAk8QfPyeGEFxRSeqQu0wpOS3OW AsMOBOKk4JsqQcBQNnAPGLXJrwPNFqTAu0XPWnHjCpZDMlVthyAHG6JsEbMMHhYfT5TdumAJzjDlR4II m8XlY7ToUaXzSkLmDgDbZaEcDsXRDvVLjcNBT3GTB+ SR0bCZq+Rk2Je5OtzvD6rnNxLZx8LBilYB9OTGKIL4KJFm== ID Date Data Source [id number] 11/07/2020 08:37:34 AM EDT [facility] Name Value Range Interpretation Code Description Data Tina rce(s) Supporting Document(s) History and Physical [facility] ISNVAr8zNpJYIsQi51/TRBehXVTkc5JhCYjcCJx9DPtiAUYnL6RrOVY0lY0dMKD8GTsZOhLhRdLsFtZo lbm [file] aX01Olf7U4IF+nCuJHODj5p4HnLSNX+Ng8Ap0TC2FMUPxk8uxc5PhOSBI5vt//ARCHERY EQUIPMENT HAY SORTER+sibp8D6gJMwXXP7 [file] SSEL+RwSbvE+Juan Jose/7mNk6Ndt+vZAwF45I6B+Y9O+9E [file] ICAgICAgICAgICAgICAgICAgICAgICAgICAgICAgICAgICAgICAgICAgICAgICAgICAgICAgICAgICAg ICAgDQogICAgICAgICAgICAgICAgICAgICAgICAgIC AgICAgICAgICAgICAgICAgICAgICAgICAgICAgICAgICAgICAgICAgICAgICAgICAgICAgICAgICAgIC AgICAgICAgICAgICAgDQogICAgICAgICAgICAgICAgICAgICAgICAgICAgICAgICAgICAgICAgICAgIC AgICAgICAgICAgICAgICAgICAgICAgICAgICAgICAg ICAgICAgICAgICAgICAgICAgICAgICAgDQogICAgICAgICAgICAgICAgICAgICAgICAgICAgICAgICAg ICAgICAgICAgICAgICAgICAgICAgICAgICAgICAgICAgICAgICAgICAgICAgICAgICAgICAgICAgICAg ICAgICAgDQogICAgICAgICAgICAgICAgICAgICAgIC AgICAgICAgICAgICAgICAgICAgICAgICAgICAgICAgICAgICAgICAgICAgICAgICAgICAgICAgICAgIC AgICAgICAgICAgICAgICAgDQogICAgICAgICAgICAgICAgICAgICAgICAgICAgICAgICAgICAgICAgIC AgICAgICAgICAgICAgICAgICAgICAgICAgICAgICAg ICAgICAgICAgICAgICAgICAgICAgICAgICAgDQogICAgICAgICAgICAgICAgICAgICAgICAgICAgICAg ICAgICAgICAgICAgICAgICAgICAgICAgICAgICAgICAgICAgICAgICAgICAgICAgICAgICAgICAgICAg ICAgICAgICAgDQogICAgICAgICAgICAgICAgICAgIC AgICAgICAgICAgICAgICAgICAgICAgICAgICAgICAgICAgICAgICAgICAgICAgICAgICAgICAgICAgIC AgICAgICAgICAgICAgICAgICAgDQogICAgICAgICAgICAgICAgICAgICAgICAgICAgICAgICAgICAgIC AgICAgICAgICAgICAgICAgICAgICAgICAgICAgICAg ICAgICAgICAgICAgICAgICAgICAgICAgICAgICAgDQogICAgICAgICAgICAgICAgICAgICAgICAgICAg ICAgICAgICAgICAgICAgICAgICAgICAgICAgICAgICAgICAgICAgICAgICAgICAgICAgICAgICAgICAg XJAvQSPcXOUnPNTuHLz2P1msNJXoAQLwAM9qJQm4Lj 8+LLhWUqKeNEN8bpUdsO8IVZ7jk9VeLJqvQRQna6GyBFo0XB9DEJAxVXmfBF1UUQcqvp3ZIAKiZXReeQ EAe8xqGvMnTEV0ETSaFroeLM2VSDJyH8bmidCnAKYyNMJRUVxgCGXZSFpyORVQUGSaOEBqKkHcUtQbQG EwUYYwGZXMEIH0BZTyDhMzSJZaMOBiPD7JXBDfZ349 liAfBW3ZDe7ZXhLfLF1nni5KPJJoXPZuVtkGQig9PKwuNP8KyXOduEG1EQAsEQGSHwNyE3khq8LdFCEa GUTAHMhmMR0Dl4CgpDBdBPv+Up2GCP8ap5FyEFo1XJZiIG5brx9FYRbHGbRcW0MyoCxqZUwpNJPztKIA sDFbVDUiGHYohdXfZeOepWuwgKasAKKvJCDoQe0uXD 4xFGXbBLNbAfB7NRRQJC8VHBLfVURgtNCuHDXzNHJJPV4SUZfsPVF0VWEatpKgtUAeLFuhOD9NRMIuye QgNTAgMCBSDQo+Id5NSW5cy7ZaNHg0MbAsYI5czl3KIIuSWxRuB3O2zYJbP1F2UWgtQy3GJBHpUDHvVE pyYFMCGMlsNL0RVY8fpuA8XZ2XyDBsEHSwMYInsXRr KDw2Y94hjSDnYFnlXC5KJLK+Gayla+Wh1TUSYdBIOcXGUiLnVlUQIRStRzM4EbZ5FMm8ArO7RbNZ42fSkh zaEkRNimJK8ELA7xMYMvSJGHGR9DcKGkpV8dxyP1JHEcYXHZKnEvX21jeMBxJQMoUOL6NFRaJf5ORRRp U6IrgeQlsSemwuUlCCHqYXRRJM8MULfzatIpxWGlpU mhRE66pIanGX3GDi9CUpJcRN4rip4MbCViJr3OZDO4Lk2HCFNuLUHvWOMmRJY6WHHsZgZeLDuaOUMqGS OcKLX4ZTEzFBNrYS9MRnJbKAMaZlD9HEXrGSKpVFRqfd9VGZQaZBS2NpO7UDQwEUVnSCDnOVpaLRXaXO QyRYF9CAAyBVVhTU3NMhCvVYClLZKjVSViZWRrTGYa us9AIUDkFFTqDKAlKSGvORJfEVIzTWypQOVtFWQ4QRSbERXdXDCdYC2NNnDrILCrUBnkWeQpWCMjZGDi mn0ACVKeGUAdRudiWXBpZFBhXGLsMNenDDVzDOOoXYP3VGNbSUEjSW2OBdEbKUHjUQC4MgfbXHLdUISw jm4WFKVtKOJfCyu3JeCsHHOvVXPvJQxjQEDkHAKkGw j0GQBvLTBfQG0NYqZbEQYoYpA3AVGeFMUuOCRbvg1FZYJyGOXnNYA0FoXoBZRfHXUeTAloTQJtDHF3Yo xcQRKgZMXzYK8MPfSrIKMeJgo2SlAdLADnGQRroy9DNETeMVCwYKM0OzGcXTPpWFGwIZgiTNYjJHAuNs W5NJUyTHCcFV0UGcQwKMXdNsE2XeBpEWDzXVMsnm3Y NHGyFCUcYMFmJxQpYHQkYHXfEDwuWKVkGHNzZqX6NDAbJHVbGX7QScIdNZTqXgB2TSPkRBKmHFGmxu1Q MXMcYFXwXou4IOLcOZLeLDLzBUkhZLTgATShPMEoORIkCPWuYQ6CNiXpSRSqMnAtHEAvIAMmQXEpgi3W LQIcIKNzNCIsMCOaCYWxXJAeTTqtNOXiPWB5MDM3FT MsSQEmWX9MImHyREFjXuK5QMFnDMOsZTKirf8KLWLzCHFeQZE7QBBuKIUcBVOkFYdrZGWoFHU8CmXdFK NsTQZrSV2WNlJdPINuBfW3JUWeOPCwAXIicv8DYWUbSGKpJsmcZWDjRXMeVFHhVMylLUAhXOC3FYJ0TQ VeNLAePM6EIxCrFVDkBtbwYWViQMJsWLGfgv0AWUBl AGJ0SyudIfMoTVCsHQPtMCtxVHYgCLR6IPCoSCMkFSCnOW4SSgVpXICjUbc2PtMlGBBuACAmej3UXNMl ZKC3RQY9NWLbKIYpWHBpJAjbYVJcJAQ7EBV7LEXiMCWkEN6UHsSySXVyKhe2ZjRsOHTzVBUqjp6OZYTz ICS6HID2KzUhLLMuANZqEJzbXXBpFAD4AVV6BYUaPX HhTC0WOzQdYJYrYcT0DOXxFHYeEEWblv0AGXIfNAE3SAJlWZAcNMKiFZWvLOgfESInJAr2QsUnJERdNA GqOY4LNbExFDSjScQ3ZjVvPJWxHLUlgy4IVEFiXGC7EWOnEQAyKCHrYRLwVJkjUDIzZTw2GEOiIGSzLN WbYA8EXyJmCHSeDsc4AEEmLIJrANPdpu9CVODyQXL9 ZfX0UtEdJKJdMSXnUYmoUFDzJMn8XQEwYGNjALIqPK1MVmFhDWxjLSJYKbz6NOswS2o7KEG8Wd6NY1Mz x6CfORTxDBSHTIkfLT2bxmTvJYZbCd8YI8fOKqf8WaY8XtO4OicuBRM2IHR1ZNRtQRF3SGPgSEHgGLTa Eh2zTDqaTcYaRzd6JMB8Nyt6HTybTNGwMoxgQmOcEj FzQvKoXcMlAW8GRs0HEvX2VKW5nDMzRy0FFvcbGCIPGzDhGQ9PFSx= ID Date Data Source [id number] 11/07/2020 08:36:49 AM EDT [facility] Name Value Range Interpretation Code Description Data Tina rce(s) Supporting Document(s) History and Physical [facility] PXHNAk3gKuRXIwRr39/CYBlyPMSdf5WyVXbvSOk1CReaRMVwP2DwDCP4tI8wSJN9THwDQsXaZyBdCbHm lbm [file] ICAgICAgICAgICAgICAgICAgICAgICAgICAgICAgICAgICAgICAgICAgICAgICAgICAgICAgICAgICAg ICAgICAgICAgICAgICAgICAgICAgDQogICAgICAgICAgICAgICAgICAgICAgICAgICAgICAgICAgICAg ICAgICAgICAgICAgICAgICAgICAgICAgICAgICAgIC AgICAgICAgICAgICAgICAgICAgICAgICAgICAgICAgDQogICAgICAgICAgICAgICAgICAgICAgICAgIC AgICAgICAgICAgICAgICAgICAgICAgICAgICAgICAgICAgICAgICAgICAgICAgICAgICAgICAgICAgIC AgICAgICAgICAgICAgDQogICAgICAgICAgICAgICAg ICAgICAgICAgICAgICAgICAgICAgICAgICAgICAgICAgICAgICAgICAgICAgICAgICAgICAgICAgICAg ICAgICAgICAgICAgICAgICAgICAgICAgDQogICAgICAgICAgICAgICAgICAgICAgICAgICAgICAgICAg ICAgICAgICAgICAgICAgICAgICAgICAgICAgICAgIC AgICAgICAgICAgICAgICAgICAgICAgICAgICAgICAgICAgDQogICAgICAgICAgICAgICAgICAgICAgIC AgICAgICAgICAgICAgICAgICAgICAgICAgICAgICAgICAgICAgICAgICAgICAgICAgICAgICAgICAgIC AgICAgICAgICAgICAgICAgDQogICAgICAgICAgICAg ICAgICAgICAgICAgICAgICAgICAgICAgICAgICAgICAgICAgICAgICAgICAgICAgICAgICAgICAgICAg ICAgICAgICAgICAgICAgICAgICAgICAgICAgDQogICAgICAgICAgICAgICAgICAgICAgICAgICAgICAg ICAgICAgICAgICAgICAgICAgICAgICAgICAgICAgIC AgICAgICAgICAgICAgICAgICAgICAgICAgICAgICAgICAgICAgDQogICAgICAgICAgICAgICAgICAgIC AgICAgICAgICAgICAgICAgICAgICAgICAgICAgICAgICAgICAgICAgICAgICAgICAgICAgICAgICAgIC AgICAgICAgICAgICAgICAgICAgDQogICAgICAgICAg ICAgICAgICAgICAgICAgICAgICAgICAgICAgICAgICAgICAgICAgICAgICAgICAgICAgICAgICAgICAg DOBsVAOjSFNdBRKfYUVhHGFxNEZcEQBeLPUqBBUaNTg8A6zhJQPhFGFaDY2oARd3Mz0+DQoNCmVuZHN0 elFrmW3RZJ8us2GdIXcnPMCpt1LaKXo4HJ9TSXAbUW ycRF8XVApzwf9XDCEwSTVfgTISy9aqZuQeYVU0KHFmJqjcZN5JDQFjD0ykpoDwBRYaQACMNSdxRSMMSL frZPYYDSHeGANjSaBtYeJrNYTuGX2SYEMzV665sfAvED5JLa4RHyFwUB8ufu2FBfPkXZJyGhlVZwn9KP xsGA8KkRXsdKSfIXAtFBBSSfQlT0ppt4DuYhJnOVTZ CXopIZ4Ga2YgsVAlHTv+Ka7IWJ5dx8AmNRhzVTBnVX3mrj7ZMEoDIcPlP4BjfBtlOQxtTDIsoOIAgETw kB4gS8rckiaoHIHnLVEuNh3mCK2mYILbNQZpToXbQZVOQJ5HEIVrKZQecRNbPIXrGWECIY1LRVblONA2 KSRnqyHopFYqSWtwPQ5RNHVgjzHcLgNuUXKPVAl+Pg 9YAY7sa2UsDGmwJPZjRM9fsp7LVQuKMrNhT1G6lZYoR0S8RGsvKh7HLSIiFQSfBtAyIUWOLXqdQX3BJM 1wdtG4HE1YqNRzAOXbUHVjxNPxJCf6G31pnLBvUQrpKU3ZTBS+Gayla+Xn9YJWMiMCGpXACoPdGmDLXQJx PzG9KiB6FIl9RxW3GqFI48sBbdvcTwLYtxDC6UVH2h IUIyROEWEQ7XfRYmoS2qpwWnMtHaLUVRQmQcU61mvHIjEYZoDHWiEBHbSd7JCHJrC6FsdxGbqLiaipDh OVZoPLSPVE0FECiqsrThaNOyoTtgSC35pQmjHU6WQt1TPpFyRD8dph2HsRRcBz4SQXDcJf6HYFXvKWCh WVUpNKK6EHEaIxMaOZhfXZWaFUKgIDW4BMAdMYGrSU 7IEuSzPSHhTxG2IvLqVTDySRNlpg6FEQWuTPFuUHE7QpTwYYWsXQEyHSnvUEOgPBKbOBW4BZScWTIqJL 8OAwUlMDHsGCDwGEHaTDLtKSOhlh0WBJDjTLZkYySlZZNmHAJuCWEwHYpaGMUtTGK9GQQ1JEDjQDMaXZ 9FRwMaKIVbJRDtHPQrROWuJOVsqs4OEZVjAOVqLSw3 VHFmGVYnXVTmKVeyCYRzNHI8FPGjAPSdCHIcOM4DFbIcLWTnCWZzVNBxOWQzZCQeam8GUUEoSVXpFxRd WhUuIJJkISUjWOtiMFLyTDS3DKdtXCBxIUMmJW4SMeGtEGOwRZYnERcxBHKzCUBhvb0SPODhNMIaIlI5 GQSsVECwJKFjNVgnGLVuEOB2QXC0RREaLFIqON0SGu FgHGUqRZF3QdvsUXTbWBByyo2NNIXmVNFtLnC7UxUrBLSxUACwBQtrOURcDRC5Aby8FYUeYDZwIA5FGd SaZZQhLEf9QkeuAPWkAZKvlk4ADSEtVTVfOPH5SoLeBVArDMQgSQraSWEbFKN3FazrGRJoFTCvJA9LFg YbSNZjPpi0PVxvDFVzIVMhwv1UESGiIWOpTSQfNYYd EZBoPGZoQWimGQGpXOToAnl3BOQbRCCbKY9KNkRkDXHoGdWtAPtmNBJgLNVhiu9WBKAiFWWgWXRwFhNw XIBhAOYbGUkuJUMbBLPuJFi3LIRvLALeBA5CHiGqQXCxFrL2TmixEJJmJRLeem4XKFMkBOIiCtktFVUq PUGhXXXuXShhHPSyALBeLIXqFANxIVMlID4HZaJbWE SqYxPzIbOgZEZmNIUhgi2QUAFeFXFtOUpwIKOpQPUuGYTwLGrgGRDuHVY9APfdKTQsHVSyVM4RErYdNX HiFvUvCOGdHSSzTLXids2GjTTtaFfznc4HJQkHJt2VuUhaAUV8LXpaNh5naLCvRFXwWDEMAb3KlsCgFW NdHUUMYIrtZVEpUDJ8ImGsKdG7QRTaBSWpMXS4ZBXd WIDoNAP0NVVqHsC0CrS8VHg0RPOxXNMlWhU2HrC8MUzoJAUaQZVxShf0BSYcZCM+CA1pTMb+Oa4Mq3Ui qmK9kwIyRMmcBLT4TJ2AUXICI7BJXq== ID Date Data Source [id number] 11/06/2020 12:10:00 AM EDT [facility] Name Value Range Interpretation Code Description Data Tina rce(s) Supporting Document(s) SARS coronavirus 2 RNA [Presence] in Res piratory specimen by NIYAH with probe detection NEGATIVE [facility] This lab was ordered by [facility] a nd reported by [facility]. Procedure Social History Code Duration Value Status Description Data Source(s ) Alcohol intake 11/06/2020 12:00:00 AM EDT Lifetime non-drinker (finding) completed Lifetime non-drinker (finding) [facility] Tobacco use and exposure 11/06/2020 12:00:00 AM EDT Never used co mpleted Never used [facility] Smoking 11/06/2020 12:00:00 AM EDT Never smoker completed Never s [facility] Vital Signs ID Date Data Source UNK Name Value Range Interpretation Code Description Data Source(s) Diastolic blood pressure--sitting 71 mm[Hg] 71 mm[Hg] [facility] ([facility]) Body mass index (BMI) [Ratio] 37.9 kg/m2 37.9 k g/m2 [facility] ([facility]) [facility] 73 /min 73 /[facility] Body temperature 98.1 [degF] 98.1 [degF] [facility] ([facility]) Oral Respiratory rate 16 /min 16 /min [facility] ( [facility]) Oxygen saturation in Arterial blood by Pulse oximetry 99 % 99 % [facility] ([facility]) Body weight 214.00 [lb_av] 214.00 [lb_av] [facility] ([facility]) Body weight 97.070 kg 97.070 kg [facility] ([facility]) Body height 63 [in_i] 63 [in_i] [facility] ([facility]) 5'3" Systolic blood pressure--sitting 120 mm[Hg] 120 mm[Hg] [facility] ([facility]) Body height [Percentile] 31 % 31 % [facility] ([facility]) Body surface area Derived from formula 1.99 m2 1.99 m2 [facility] Body mass index (BMI) [Percentile] 98 % 9 8 % [facility] Body height [Percentile] 31 % 31 % [facility] ([facility]) Systolic blood pressure 110 mm[Hg] 110 mm[Hg] [facility] ([facility]) Diastolic blood pressure 70 mm[Hg] 70 mm[Hg] [facility] ([facility]) Body temperature 97.3 [degF] 97.3 [degF] [facility] ([facility]) Respiratory rate 16 /min 16 /min [facility] ( [facility]) Oxygen saturation in Arterial blood by Pulse oximetry 98 % 98 % [facility] Body mass index (BMI) [Percentile] 98 % 9 8 % [facility] Body surface area Derived from formula 2.00 m2 2.00 m2 [facility] ([facility]) Body weight 98.034 kg 98.034 kg [facility] ([facility]) Body height 63 [in_i] 63 [in_i] [facility] ([facility]) 5'3" Body weight 216.12 [lb_av] 216.12 [lb_av] [facility] ([facility]) Body mass index (BMI) [Ratio] 38.3 kg/m2 38.3 k g/m2 [facility] ([facility]) Heart rate 72 /min 72 /min [facility] ([facility]) Heart rate 74 /min 74 /min [facility] ([facility]) Respiratory rate 18 /min 18 /min [facility] Systolic blood pressure 124 mm[Hg] 124 mm[Hg] [facility] ([facility]) Body height 63 [in_i] 63 [in_i] [facility] ([facility]) 5'3" Body height [Percentile] 31 % 31 % [facility] Body mass index (BMI) [Ratio] 38.4 kg/m2 38.4 k g/m2 [facility] ([facility]) Diastolic blood pressure 82 mm[Hg] 82 mm[Hg] [facility] Body temperature 97.9 [degF] 97.9 [degF] [facility] ([facility]) Oxygen saturation in Arterial blood by Pulse oximetry 98 % 98 % [facility] Body weight 217.00 [lb_av] 217.00 [lb_av] [facility] ([facility]) Body weight 98.431 kg 98.431 kg [facility] Body mass index (BMI) [Percentile] 98 % 9 8 % [facility] ([facility]) Body surface area Derived from formula 2.00 m2 2.00 m2 [facility] ([facility]) Systolic blood pressure 132 mm[Hg] 132 mm[Hg] [facility] ([facility] Diastolic blood pressure 84 mm[Hg] 84 mm[Hg] [facility] ([facility] Body height 63 [in_i] 63 [in_i] [facility] 5'3" Body weight 217.00 [lb_av] 217.00 [lb_av] [facility] ([facility] Heart rate 100 /min 100 /min [facility] ([facility] Body mass index (BMI) [Ratio] 38.4 kg/m2 38.4 k g/m2 [facility] ([facility] Body height 63 [in_i] 63 [in_i] [facility] ([facility]) 5'3" Body height [Percentile] 31 % 31 % [facility] ([facility]) Body mass index (BMI) [Percentile] 98 % 9 8 % [facility] ([facility]) Systolic blood pressure 132 mm[Hg] 132 mm[Hg] M EDENT ([facility]) Diastolic blood pressure 84 mm[Hg] 84 mm[Hg] MEDENT ([facility]) Heart rate 100 /min 100 /min MEDENT ([facility]) Body surface area Derived from formula 2.00 m2 2.00 m2 [facility] ([facility]) Body temperature 98.2 [degF] 98.2 [degF] [facility] ([facility]) Respiratory rate 18 /min 18 /min [facility] ( [facility]) Oxygen saturation in Arterial blood by Pulse oximetry 99 % 99 % MEDENT ([facility]) Body weight 217.38 [lb_av] 217.38 [lb_av] MEDEN T ([facility]) Body weight 98.601 kg 98.601 kg [facility]ENT ([facility]) Body mass index (BMI) [Ratio] 38.5 kg/m2 38.5 k g/m2 [facility] ID Date Data Source [id number] 11/19/2020 08:34:58 AM [facility] Name Value Range Interpretation Code Description Data Source(s) WEIGHT RECORDED 210.6 lb 210.6 lb [facility] Body height Measured 63 in 63 in [facility] TRANSFER FROM [facility] Patient Treatment Plan of Care Planned Activity Planned Date Details Description Data Source (s) 24 HR Bupropion Hydrochloride 150 MG Extended Release Oral Tablet 11/11/2020 09:00:00 AM [facility] 24 HR Bupropion Hydrochloride 150 MG Extended Release Oral Tablet 11/11/2020 12:00:00 AM [facility] Escitalopram 10 MG Oral Tablet 11/10/2020 12:00:00 AM [facility] Prazosin 2 MG Oral Capsule 11/10/2020 12:00:00 AM [facility] acetaminophen (TYLENOL) tablet 650 mg 11/06/2020 05:50:40 AM [facility] Magnesium Hydroxide 80 MG/ML Oral Suspension 11/06/2020 05:50:39 AM [facility] Aluminum Hydroxide 40 MG/ML / Magnesium Hydroxide 40 MG/ML / Simethicone 4 MG/ML Oral Suspension 11/06/2020 05:50:39 AM [facility] Ondansetron 4 MG Disintegrating Oral Tablet 11/06/2020 05:50:39 AM [facility] Nicotine 2 MG Oral Lozenge 11/06/2020 05:50:39 AM [facility] Haloperidol 5 MG Oral Tablet 11/06/2020 05:50:39 AM [facility] Escitalopram 10 MG Oral Tablet [facility] Ranitidine 150 MG Oral Tablet [facility]
[2021-03-17] MEDS ORDERED: ONDANSETRON 4MG/2ML VIAL IV ONE (19:45)
[2021-03-17 20:23] LABS: BASO # 0.1 10^3/uL (0.0-0.2); BASO % 0.7 % (0.0-1.0); EOS # 0.1 10^3/uL (0.0-0.5); EOS % 1.3 % (0.0-3.0); HEMATOCRIT 43.8 % (36.0-47.0); HEMOGLOBIN 14.2 g/dl (12.0-15.5); LYMPH # 2.5 10^3/uL (1.5-5.0); LYMPH % 30.2 % (24.0-44.0); MEAN CORPUSCULAR HEMOGLOBIN 27.7 pg (27.0-33.0); MEAN CORPUSCULAR HGB CONC 32.4 g/dl (32.0-36.5); MEAN CORPUSCULAR VOLUME 85.5 fl (80.0-96.0); MONO # 0.6 10^3/uL (0.0-0.8); NEUTROPHILS % 60.7 % (36.0-66.0); PLATELET COUNT, AUTOMATED 279 10^3/uL (150-450); RED BLOOD COUNT 5.12 10^6/uL (4.00-5.40); WHITE BLOOD COUNT 8.2 10^3/uL (4.0-10.0)
[2021-03-17] MEDS ORDERED: ONDANSETRON 4 MG ORAL DISINTEGRATING TAB PO ONE (20:25)
[2021-03-17 21:22] LABS: ALBUMIN 4.1 GM/DL (3.2-5.2); ALT/SGPT 28 U/L (12-78); BILIRUBIN,DIRECT < 0.1 MG/DL (0.0-0.2); BILIRUBIN,TOTAL 0.3 MG/DL (0.2-1.0); CK-MB VALUE MASS < 1.0 NG/ML (<3.6); CPK CREATINE PHOSPHOKINASE 90 U/L (26-192); LIPASE 57 U/L (73-393); MB/CK RELATIVE INDEX 1.11 (< OR =4); THYROID STIMULATING HORMONE 0.473 uIU/ML (0.463-3.98); TOTAL PROTEIN 7.9 GM/DL (6.4-8.2); TROPONIN I < 0.02 NG/ML (< 0.10)
--- NOTE | 2021-03-17 21:29 | REPVR ---
PROCEDURE INFORMATION: Exam: CT Head Without Contrast Exam date and time: 03/17/2021 9:00 PM Age: 20 years old Clinical indication: Injury or trauma; Fall; Blunt trauma (contusions or hematomas); Additional info: Falls/weakness/recent fall/loc TECHNIQUE: Imaging protocol: Computed tomography of the head without contrast. Axial and coronal reformatted images were created and reviewed. Radiation optimization: All CT scans at this facility use at least one of these dose optimization techniques: automated exposure control; mA and/or kV adjustment per patient size (includes targeted exams where dose is matched to clinical indication); or iterative reconstruction. COMPARISON: No relevant prior studies available. FINDINGS: Brain: No CT evidence of acute intracranial hemorrhage or acute territorial infarction. No significant mass effect or midline shift. Basal cisterns patent. Cerebral ventricles: Normal in size and configuration. Paranasal sinuses: Unremarkable. No fluid levels. Mastoid air cells: Grossly unremarkable. Bones/joints: No acute osseous abnormality. Soft tissues: Grossly unremarkable. IMPRESSION: No CT evidence of acute intracranial pathology. Electronically signed by: Kenji Reyes On 03/17/2021 21:29:37 PM
[2021-03-17] MEDS ORDERED: ISOVUE-370 76% 100ML VIAL As Ordered ONE (23:00)
--- NOTE | 2021-03-18 00:58 | REPVR ---
PROCEDURE INFORMATION: Exam: CT Abdomen And Pelvis With Contrast Exam date and time: 03/17/2021 11:08 PM Age: 20 years old Clinical indication: Other: Abd pain; Additional info: Abdominal pain TECHNIQUE: Imaging protocol: Computed tomography of the abdomen and pelvis with contrast. Radiation optimization: All CT scans at this facility use at least one of these dose optimization techniques: automated exposure control; mA and/or kV adjustment per patient size (includes targeted exams where dose is matched to clinical indication); or iterative reconstruction. Contrast material: ISOVUE 370; Contrast volume: 100 ml; Contrast route: INTRAVENOUS (IV); COMPARISON: None FINDINGS: LUNG BASES: No infiltrate or effusion. VASCULAR: Visualized cardiac size is borderline. No abdominoaortic aneurysm, dissection, or retroperitoneal hematoma. PERITONEAL : No free air or free fluid. GI: No hiatal hernia. The stomach contains some fluid and gas. The stomach is not sufficiently distended for complete diagnostic evaluation by this exam. Non-specific fluid-filled loops of small bowel are seen. No asymmetric small-bowel distention to suggest obstruction. No focal mesenteric inflammation is seen. Scattered fecal material and gas within portions of the colon and rectum. No pericolonic inflammatory stranding is seen. There is mild colonic mucosal enhancement at the ascending and proximal transverse colon. This is nonspecific but mild colitis could have this appearance. There is a group of slightly enlarged mesenteric lymph nodes in the right mid abdomen with lymph nodes measuring up to 8.8 mm in short axis. This appearance could be seen with mild mesenteric adenitis or could be reactive secondary to mild enterocolitis. No evidence of acute diverticulitis. The appendix does not appear inflamed. HEPATOBILIARY, PANCREAS, SPLEEN: Hepatic length is 14.3 cm. Attenuation of the liver is suggestive of mild steatosis. The gallbladder has been removed. No biliary dilation. No pancreatic inflammation. Spleen not enlarged. ADRENALS, KIDNEYS, BLADDER, RETROPERITONEAL: Adrenals within normal limits. No hydronephrosis. Symmetric renal enhancement. No perinephric stranding or fluid. No bladder wall thickening. No perivesical stranding. No retroperitoneal lymphadenopathy by size criteria. PELVIC: No dominant cystic pelvic mass seen. Anteverted uterus. MUSCULOSKELETAL: Small fat containing umbilical hernia. Minimal degenerative change at the lower lumbar spine. Left lumbosacral transitional anatomy noted. Minimal degenerative change at the right sacroiliac joint. IMPRESSION: No free-air, free-fluid or mesenteric inflammation. Gastrointestinal findings to be correlated clinically with the patient's symptoms are discussed above in detail. Other incidental and nonemergent findings discussed above. Electronically signed by: James Tellez On 03/18/2021 00:57:17 AM
[2021-03-18] MEDS ORDERED: ZOFR4TAB16 PO (01:18)
[2021-03-18 01:28] VITALS: BP 138/76
--- NOTE | 2021-03-18 13:30 | ECGEPIP ---
[facility] - ED Test Date: 2021-03-17 Pat Name: KATERYNA KIM Department: Room: - Gender: Female Electrical Engineering Technologist: CECY : 2000 Requested By: Nikole Sue Order Number: [id number] Reading MD: Nikole Sue Measurements Intervals [place] Rate: 76 P: 28 NE: 136 QRS: 42 QRSD: 82 T: 33 QT: 390 QTc: 438 Interpretive Statements Normal sinus rhythm with sinus arrhythmia NSTTW abnormalities increased rate 11/05/20 Electronically Signed on 03-18-2021 13:30:42 EDT by Nikole Sue
== END 2021-03-18 01:29 | disposition home or self-care (01) ==
LOC: M ED 11:53
DX: I88.0 Nonspecific mesenteric lymphadenitis (principal); K76.0 Fatty (change of) liver, not elsewhere classified; K46.9 Unspecified abdominal hernia without obstruction or gangrene; R42 Dizziness and giddiness; R07.89 Other chest pain; F41.9 Anxiety disorder, unspecified; F31.89 Other bipolar disorder; Z79.899 Other long term (current) drug therapy
CPT/HCPCS: 70450; 74177; 80076; 82550; 82553; 83690; 84443; 84702; 85025; 93005; 99284; Q0162; Q9967

== ENCOUNTER 2021-03-26 12:10 | Emergency (ER) | payer OTHER ==
[~2021-03-26] VITALS: Ht 160 cm; Wt 94.0 kg
[~2021-03-26 12:10] MED LIST changes: +ZOFR4TAB16 PO
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
[2021-03-26] MEDS ORDERED: OMEP-221 (12:18)
--- OUTSIDE RECORDS SUMMARY | 2021-03-26 12:18 | CCD ---
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
<content></content>
<content>Risk Stratification:</content>
<content><= 0.10 ng/ml Decreased Risk for Adverse Clinical</content>
<content>Events.</content>
<content>0.10-1.50 ng/ml Increased Risk for Adverse Clinical</content>
<content>Events. Evaluation of additional</content>
<content>criterion and/or repeat testing in 2-6</content>
<content>hours is suggested to rule out myocardial</content>
<content>damage.</content>
<content>>= 1.50 ng/ml Indicative of Myocardial Injury.</content>
<content></content> ID Date Data Source [id number] 03/17/2021 08:05:00 PM EDT [facility] ([facility]) Name Value Range Interpretation Code Description Data Tina rce(s) Supporting Document(s) White Blood Count 8.2 10 4.0-10.0 Normal (applies to non-numeri c results) [facility] ([facility]) Red Blood Count 5.12 10 4.00-5.40 Normal (applies to non-numeric results) [facility] ([facility]) Hemoglobin 14.2 g/dL 12.0-15.5 Normal (applies to non-numeric resul ts) [facility] ([facility]) Hematocrit 43.8 % 36.0-47.0 Normal (applies to non-numeric resul ts) [facility] ([facility]) Mean Corpuscular HGB Conc 32.4 g/dL 32.0-36.5 Normal (applies to non-numeric results) [facility]) Mean Corpuscular Hemoglobin 27.7 pg 27.0-33.0 Norm al (applies to non-numeric results) [facility] ([facility]) Mean Corpuscular Volume 85.5 fl 80.0-96.0 Normal ( applies to non-numeric results) [facility] ([facility]) Platelet Count, Automated 279 10 150-450 Normal (applies to non-numeric results) [facility] ([facility]) Red Cell Distribution Width 12.5 % 11.5-14.5 Norm al (applies to non-numeric results) [facility] ([facility]) Neutrophils % 60.7 % 36.0-66.0 Normal (applies to non-numeric re sults) [facility] ([facility]) Lymph % 30.2 % 24.0-44.0 Normal (applies to non-numeric resul ts) [facility] ([facility]) Nelson % 7.0 % 2.0-8.0 Normal (applies to non-numeric resul ts) [facility] ([facility]) Eos % 1.3 % 0.0-3.0 Normal (applies to non-numeric resul ts) [facility] ([facility]) Baso % 0.7 % 0.0-1.0 Normal (applies to non-numeric resul ts) [facility] ([facility]) Immature Granulocyte % 0.1 % 0-3.0 Normal (applies to non-n umeric results) [facility] ([facility]) Nucleated Red Blood Cell % 0.0 % 0-0 Normal (applies to n on-numeric results) [facility] ([facility]) Lymph # 2.5 10 1.5-5.0 Normal (applies to non-numeric resul ts) [facility] ([facility]) Neutrophils # 5.0 10 1.5-8.5 Normal (applies to non-numeric re sults) [facility] ([facility]) Nelson # 0.6 10 0.0-0.8 Normal (applies to non-numeric resul ts) [facility] ([facility]) Eos # 0.1 10 0.0-0.5 Normal (applies to non-numeric resul ts) [facility] ([facility]) Baso # 0.1 10 0.0-0.2 Normal (applies to non-numeric resul ts) [facility] ([facility]) ID Date Data Source [id number] 03/09/2021 09:11:00 AM EDT [facility] ([facility]) Name Value Range Interpretation Code Description Data Tina rce(s) Supporting Document(s) Thyrotropin [Units/volume] in Serum or Plasma 0.676 uIU/ML 0. 463-3.98 Normal (applies to non-numeric results) [facility] ([facility]) <content>note:<nlbl:demographic_changed> </content>
<content></content> ID Date Data Source [id number] 03/09/2021 09:11:00 AM EDT [facility] ([facility]) Name Value Range Interpretation Code Description Data Tina rce(s) Supporting Document(s) Cholesterol Level 114 mg/dL Normal (applies to non-numeri c results) [facility] ([facility]) HDL Cholesterol 51 mg/dL Normal (applies to non-numeric results) [facility] ([facility]) Triglycerides Level 104 mg/dL Normal (applies to non-nume marquez results) [facility] ([facility]) Cholesterol Risk Ratio 2.235 Normal (applies to non-n umeric results) [facility] ([facility]) LDL Cholesterol 42 mg/dL Normal (applies to non-numeric results) [facility] ([facility]) Non-HDL-C 63 mg/dL Normal (applies to non-numeric resul ts) [facility] ([facility]) ID Date Data Source [id number] 03/09/2021 09:11:00 AM EDT [facility] ([facility]) Name Value Range Interpretation Code Description Data Tina rce(s) Supporting Document(s) Glucose, Fasting 75 mg/dL 70-100 Normal (applies to non-numeric results) [facility] ([facility]) Creatinine For GFR 0.67 mg/dL 0.55-1.30 Normal (applies to non -numeric results) [facility] ([facility]) Sodium Level 141 meq/L 136-145 Normal (applies to non-numeric res ults) [facility] ([facility]) Blood Urea Nitrogen 10 mg/dL 7-18 Normal (applies to non-nume marquez results) [facility] ([facility]) Chloride Level 107 meq/L 98-107 Normal (applies to non-numeric r esults) [facility] ([facility]) Carbon Dioxide Level 29 meq/L 21-32 Normal (applies to non-num ariel results) [facility] ([facility]) Potassium Serum 3.7 meq/L 3.5-5.1 Normal (applies to non-numeric results) [facility] ([facility]) Ast/Sgot 19 U/L 7-37 Normal (applies to non-numeric resul ts) [facility] ([facility]) Anion Gap 5 meq/L 8-16 Below low normal [facility] ( [facility]) Calcium Level 8.5 mg/dL 8.5-10.1 Normal (applies to non-numeric re sults) [facility] ([facility]) Alt/SGPT 26 U/L 12-78 Normal (applies to non-numeric resul ts) [facility] ([facility]) Alkaline Phosphatase 87 U/L 45-117 Normal (applies to non-num ariel results) [facility] ([facility]) Bilirubin,Total 0.4 mg/dL 0.2-1.0 Normal (applies to non-numeric results) [facility] ([facility]) Total Protein 7.0 GM/DL 6.4-8.2 Normal (applies to non-numeric re sults) [facility] ([facility]) Albumin 3.5 GM/DL 3.2-5.2 Normal (applies to non-numeric resul ts) [facility] ([facility]) Albumin/Globulin Ratio 1.0 1.2-2.2 Below low normal [facility] ([facility]) ID Date Data Source [id number] 03/09/2021 09:11:00 AM EDT [facility] ([facility]) Name Value Range Interpretation Code Description Data Tina rce(s) Supporting Document(s) Hemoglobin A1c 5.1 % Normal (applies to non-numeric r esults) [facility] ([facility]) <content>REFERENCE RANGES:</content><br/ ><content></content>
<content><=5.6% NORMAL</content>
<content>5.7-6.4% SUGGESTS IMPAIRED GLUCOSE METABOLISM/PREDIABETIC</content>
<content>>= 6.5% ABNORMAL</content>
<content></content> Estimated Average Glucose 100 mg/dL 60-110 Normal (applies to non-numeric results) [facility] ([facility]) ID Date Data Source [id number] 03/09/2021 09:11:00 AM EDT [facility] ([facility]) Name Value Range Interpretation Code Description Data Tina rce(s) Supporting Document(s) Red Blood Count 4.81 10 4.00-5.40 Normal (applies to non-numeric results) [facility] ([facility]) White Blood Count 7.2 10 4.0-10.0 Normal (applies to non-numeri c results) [facility] ([facility]) Hemoglobin 13.3 g/dL 12.0-15.5 Normal (applies to non-numeric resul ts) [facility] ([facility]) Mean Corpuscular Volume 85.0 fl 80.0-96.0 Normal ( applies to non-numeric results) [facility] ([facility]) Hematocrit 40.9 % 36.0-47.0 Normal (applies to non-numeric resul ts) [facility] ([facility]) Mean Corpuscular Hemoglobin 27.7 pg 27.0-33.0 Norm al (applies to non-numeric results) [facility] ([facility]) Mean Corpuscular HGB Conc 32.5 g/dL 32.0-36.5 Normal (applies to non-numeric results) [facility] ([facility]) Red Cell Distribution Width 12.7 % 11.5-14.5 Norm al (applies to non-numeric results) [facility] ([facility]) Neutrophils % 49.6 % 36.0-66.0 Normal (applies to non-numeric re sults) [facility] ([facility]) Platelet Count, Automated 289 10 150-450 Normal (applies to non-numeric results) [facility] ([facility]) Lymph % 37.1 % 24.0-44.0 Normal (applies to non-numeric resul ts) [facility] ([facility]) Baso % 0.8 % 0.0-1.0 Normal (applies to non-numeric resul ts) [facility] ([facility]) Nelson % 9.6 % 2.0-8.0 Above high normal [facility] ([facility]) Eos % 2.5 % 0.0-3.0 Normal (applies to non-numeric resul ts) [facility] ([facility]) Immature Granulocyte % 0.4 % 0-3.0 Normal (applies to non-n umeric results) [facility] ([facility]) Nucleated Red Blood Cell % 0.0 % 0-0 Normal (applies to n on-numeric results) [facility]) Lymph # 2.7 10 1.5-5.0 Normal (applies to non-numeric resul ts) [facility] ([facility]) Neutrophils # 3.6 10 1.5-8.5 Normal (applies to non-numeric re sults) [facility] ([facility]) Nelson # 0.7 10 0.0-0.8 Normal (applies to non-numeric resul ts) [facility] ([facility]) Baso # 0.1 10 0.0-0.2 Normal (applies to non-numeric resul ts) [facility] ([facility]) Eos # 0.2 10 0.0-0.5 Normal (applies to non-numeric resul ts) [facility] ([facility]) ID Date Data Source [id number] 11/19/2020 03:37:00 PM EDT [facility] ([facility]) Name Value Range Interpretation Code Description Data Tina rce(s) Supporting Document(s) Laboratory test finding (navigational concept) Laboratory test result [facility] ([facility]) {DIAGNOSIS: F33.0~{MEDICATIONS/DECLARED : BUPROPION, LEXAPRO, PRAZOSIN~{PRESCRIPTION INFO:~{PRES PDF Laboratory test result [facility] ([facility]) {DIAGNOSIS: F33.0~{MEDICATIONS/DECLARED : BUPROPION, LEXAPRO, PRAZOSIN~{PRESCRIPTION INFO:~{PRES ID Date Data Source [id number] 11/29/2020 05:08:[address] [facility] Name Value Range Interpretation Code Description Data Tina rce(s) Supporting Document(s) Drugs identified in Urine FINAL [facility] TOXASSURE SELECT 13 (MW) Test Result [...] clinical consultation, please call . Report . [facility] ID Date Data Source [id number] 11/10/2020 03:58:56 PM EDT [facility] Name Value Range Interpretation Code Description Data Tina rce(s) Supporting Document(s) Discharge Summary [facility] [id number]/QCBknKJJze1VnEYprRKn8LGsnZPTaY5SzHHL7zW6bPXP4KBqUNxHlItMcKqW4 lbm [file] ICAgICAgICAgICAgICAgICAgICAgICAgICAgICAgICAgICAgICAgICAgICAgICAgICAgICAgICAgICAg XLPiYDBlXUKeGYTfIAFdNZVuOKBuWXGpOAYbUQLnTLUqIKNkKR5EEFGwUFOsRLDmXTAaVWUfYZUaODSh ICAgICAgICAgICAgICAgICAgICAgICAgICAgICAgIC SkGADiWMWiTBUdJRWoNQFfEPIjICMnFOUxLDWrYJWoUBAdSLPrGHHuMRGrHNHuTZ5KJLWaLTZqDWBuCG AgICAgICAgICAgICAgICAgICAgICAgICAgICAgICAgICAgICAgICAgICAgICAgICAgICAgICAgICAgIC HmXWSpKUQqRBTvFRBpRRQrWSYuRWFdDAGaZLUcZL1A ICAgICAgICAgICAgICAgICAgICAgICAgICAgICAgICAgICAgICAgICAgICAgICAgICAgICAgICAgICAg NXRjYHIhTQPeBESaBQNlILNxQXDiUWBaOGYtKWFcAMWvKZPuFFBdKM6YYHBpAQWzKPGsRUYvHOYtJMZm ICAgICAgICAgICAgICAgICAgICAgICAgICAgICAgIC KaIFOkPSYqGXAzUFArOAJrEWYfIZRmZBXoRIScBVEsGKOqXNVcEGZuISQgVAQiAREeSA6JRNXzOLLgFK AgICAgICAgICAgICAgICAgICAgICAgICAgICAgICAgICAgICAgICAgICAgICAgICAgICAgICAgICAgIC AgICAgICAgICAgICAgICAgICAgICAgICAgICAgICAg RJ0HIWLaKGRjQSXmJMFvIDYjBHTzLXIcXSQaNHFiRGLaCAGeEFPeTDXzCMAfBDEwMNKyYXWsJPYrDXNc CAXrPFQhEGEpWCObELCuPTCfZATlXROnWIJoWXEjWTDbQGWbXCUoRBCmMT1HNPCzGNUlVCPhOOKbTXXm ICAgICAgICAgICAgICAgICAgICAgICAgICAgICAgIC FhPZBeEZUwBVGgMYZmOZIxRCHfTIZwSWYtUBKiTYOgSCYnAZTrVPKgHVDoKUYrNLPmNOQuWD8TFLCjPX AgICAgICAgICAgICAgICAgICAgICAgICAgICAgICAgICAgICAgICAgICAgICAgICAgICAgICAgICAgIC AgICAgICAgICAgICAgICAgICAgICAgICAgICAgICAg AVDxTT1VEOKyBJXrJLTnFLVlTFQxLWQrDCYwXQStNHXqQENoWEDcDURvDSDaXHCmJANoUCFsBKQfFXOs QHDdGGUnNMBuCXXpDQYrRNCbZNAaCJKtTQOeUCSvVARyBLFlYUHtSMNbOWBiGH8RRJ79qLLve7N4HOWc XK7ecqt/Ca7UZSsbqfTjiJZtIP9PZwZtXR6pnn6YCq YaUH6wxx9UAFaBXtZcH1F4fMVnJLPpQZORZeEtL75jILhwAz69RIdaYCBdGtZjTGr2Ph8JCvJgM2fmZD IkAkJ0ZIEzIeD9NRNzCfR0WRIfOuChCUOyBPMeFDEzFFJDYUK2QXAfToGtNqYtADCqQPkvRAXPFFQbXP QoXbAsVPftHW6Hp6MqmYN2PDq+Rw9GHI4pq6QbEIu6 HIQuXL5cew5APFpBTuWhP4ZvqzQ3SXB1RXDiVh2SIQPqAXOakLT0ZJZkUZZXLhFfC8MnjW58VAPBEd3+ WViyamQcHymOGzL4QJBlh6LaAMi6AJ2SQEAqSIh9rNUeUMwoD9sqhmbaROJ6gG4gufazPbvbHRRfpFjz HDsgRG7oQN4SROS4WNCgJPBcZoRrYLCkCHrhHhUDEN wATeLvM7Gxh1OrQcG4LYTsHiKrMUisEAQzEkX8VF79fQbuXK3UTPVcCKFjTN39QNM5HBMsJh5VPu8HJe TjGH7tzn2KDkRyXQUtLyfDGhd6DZhiVX9CbHTlR6XdyNNro9gSRxHvL8ZJUVC5WWFjLu3XGGHjLcMjWK ZoXUtzGT9xNVMpZWFMwQacfiR7QH1WKT7yklDdZT4Y YxKnZq2vEd9SDhWiI2VdW8HlFEYbJOGFWEavQA9ISPvfBB4tDG7Hk5KRbCMylZ7zul4GINFzAYAzOxki tc1XRbagL4L3kCjpPMYrAJjvVEEZLOldAO7SZYTkCGH2LCN2CkRuWLVZYlBjJ26wCG7GM4Vkc99uZnK5 IJElTzJiZSjsFQ74wQklcgJlrEOvaAmeVQ6HYa6+DQ duowAeGbaUCkfvBWLNQjUmLjOSFbQxLULmGSAkFAMeBsQ4YhTxSr2HPIQeKTYlASZtAaAmTXGfCVTuNP nxDBWpTIJjQMM7XLDxXTKrHR0IThAaFNLtQiNsTZTqLADjHLMrss4NDJKkYBKyYPK6EcSrSWFlRSUqIY buKDZkFVE9HvUyJHVdNRSjSO8IVjYaQDVnMQB0TSGo OCEmQHHylp8NPYNhFTBkIUJbVCYrYXRgVTLnKPqxGCUyZGG7QHO7WVIoTQXlRW7CNkGnFTQzWYQ3WKIe HYNmLYMccc7YUWQiQCFvXkE2MOMgGILaCRFlJMqxAEHvESE0ECZyKFGbQPIjON7OLuIpVXEzSIA5NUvb NEOgFPFowc2LXNLfHKOiKVE8RAOsJRIlVSLlFZoqHW GxVXPfRlP8CQGyFBIrAC8NSwYoGGMoNiSoNSSoEUMeNGBotm9HHTZiPPJtACQqQiGmOENdHZTkVXazGM UdXOM1XDU8EHExRMTyOD6FMrEcMSKyPxw2EFBuCVVrVWQete8MPKFsPBHtHQTcUlAiTBEmWZIdCBmmEU LiPCTjEYXzLKElGXBaYY9IBiHzACJoVcUuJTbmXYKq PIZxgf0JOOXgSOCrUKQ5LRRfQDSwMQWzSIygQFGfOYQ2NzW8DWMrIDOpQB7CWrFbNXXoBuZ7HQQhELNt RRJxhr4UJQVhCHWgDlzhIONtMSIaCHKkERgmJBKkMHN3ElijJDNkAYBcJI9WFfRkRSVoOxf2FIItUGBr YMExyl4TPFOqOPLaRGN8FsGiXIJwTJDfLDjpHRYpLW W4LKBqCDCnZFHtSZ8PIpWtBDEkTpfcZGYqTYYkHJOuhv2QGKPzUFSoKMXgPxBxGGXiJLLwRRkbULXbKY YvKbmcVIRkKZEkEQ9NMwLsKZEoBMV7YKvsRQSzKAQmaa7WVGNrNWH3EDl7LdFpNMKqKBMzVUkwCMDyDG YzMiItWPQhCYDfUF7RWuDxDKFmAPJ0JfBwWIYzIRLf gj7QWWDnGRJ5KtDiKfOkJLQcTYWlOUniSFNdPKUtWETcPRIcRTJjEK3QOdRcPEQgJFI7FukpNHSfQPMa qz1GFGEaIPH3ZDJfAYCqLOSoDFKsNZghTFPgMNA2Yxo8RDNbSLLvFZ6CJoXqQBDjZXE5BlVeXWFfUDJz we9LATMtUSO6PTS1TdPzFTGrSMUvUNiwLFYkYJU0XA Q2AXEtIPLpXR2CYnZeYGPlVCK3NLLsZIRtFDCpju5ICOJsDSJ5FGN0WUAuJRXnNDYoPOovCHKdXZHdYH UsDDKiPBBoWJ6OUvMtIRSzYzFcKhacIOMtIBPmuk1TAPXfQYX9JNL3PcBsTGLjFWKkTFyzNLRiBKOwVX D9BQWqCODkAU5EMfReJZHeKlE4FSLtOHTqWTMjoj4A QFBhUDE1ZOy1XgAiILJvDKMtNCfeXQGhPJJcTJDhENPgAKZoME7WIzAjTFNgEqIrFeYaTQDcTYOvfd9I KICmMID7TqG4FrTgGGBgSWHdIRccHXZtVNViTSHwWRHbFSVqDX3DRkJsYXUpFfL8DNPoVCThZOWeca2K LGDhZZX4RHC7PoTkYFBsQMGoMRsqPDOgOCW0BKZ2GB BxYYCwUX5KSyKkUCCtKuH5NsguRIJlBIAszo4LoJOitQtoqv8DCXhWDx5XpHpiUKInGNodQd8vmUC8FP ZyRLXQKg8OdzTuYTLpMJDXTXajYTLyIAa2TVYiGaZoCOQpKdwxQQO5OwLrJMQeSjD9SoavDShcXoC0WN u1NqE6JyCeAyUfZsCcYyAfAnMgJAUqKLpbTHF5ARM+ CP9eDFv+Yf5Ag8TxxoW8btRjEYy7UFugIF0ZGHQFI2EYAm== ID Date Data Source [id number] 11/07/2020 08:37:34 AM EDT [facility] Name Value Range Interpretation Code Description Data Tina rce(s) Supporting Document(s) History and Physical [facility] EQJCIs0oTnKJUeXk12/XWVmmAJWrh7EdTCksTRy9WUerXOSgT2PqCYZ1kI4tVPG9SXpVCzWgIoHmVeCp lbm [file] iD06Oae8K4EU+pGbTEMPl4d0HfCUOE+Pl8Cz7LK6GEKRod2wea8YwJZYE6aj//PIECE WORK CHECKER+ngln2G1zWRrPID0 [file] SSEL+RwSbvE+Juan Jose/2tLp9Jyj+gXXlR03Z1E+Y9O+9E [file] ICAgICAgICAgICAgICAgICAgICAgICAgICAgICAgICAgICAgICAgICAgICAgICAgICAgICAgICAgICAg ICAgDQogICAgICAgICAgICAgICAgICAgICAgICAgIC AgICAgICAgICAgICAgICAgICAgICAgICAgICAgICAgICAgICAgICAgICAgICAgICAgICAgICAgICAgIC AgICAgICAgICAgICAgDQogICAgICAgICAgICAgICAgICAgICAgICAgICAgICAgICAgICAgICAgICAgIC AgICAgICAgICAgICAgICAgICAgICAgICAgICAgICAg ICAgICAgICAgICAgICAgICAgICAgICAgDQogICAgICAgICAgICAgICAgICAgICAgICAgICAgICAgICAg ICAgICAgICAgICAgICAgICAgICAgICAgICAgICAgICAgICAgICAgICAgICAgICAgICAgICAgICAgICAg ICAgICAgDQogICAgICAgICAgICAgICAgICAgICAgIC AgICAgICAgICAgICAgICAgICAgICAgICAgICAgICAgICAgICAgICAgICAgICAgICAgICAgICAgICAgIC AgICAgICAgICAgICAgICAgDQogICAgICAgICAgICAgICAgICAgICAgICAgICAgICAgICAgICAgICAgIC AgICAgICAgICAgICAgICAgICAgICAgICAgICAgICAg ICAgICAgICAgICAgICAgICAgICAgICAgICAgDQogICAgICAgICAgICAgICAgICAgICAgICAgICAgICAg ICAgICAgICAgICAgICAgICAgICAgICAgICAgICAgICAgICAgICAgICAgICAgICAgICAgICAgICAgICAg ICAgICAgICAgDQogICAgICAgICAgICAgICAgICAgIC AgICAgICAgICAgICAgICAgICAgICAgICAgICAgICAgICAgICAgICAgICAgICAgICAgICAgICAgICAgIC AgICAgICAgICAgICAgICAgICAgDQogICAgICAgICAgICAgICAgICAgICAgICAgICAgICAgICAgICAgIC AgICAgICAgICAgICAgICAgICAgICAgICAgICAgICAg ICAgICAgICAgICAgICAgICAgICAgICAgICAgICAgDQogICAgICAgICAgICAgICAgICAgICAgICAgICAg ICAgICAgICAgICAgICAgICAgICAgICAgICAgICAgICAgICAgICAgICAgICAgICAgICAgICAgICAgICAg QPQuZTEbBEAzEPJgVAo6F8iuVBMcPAEmDS1tSPh6Iv 8+YFuTPxZuTBF5ynVfbL5ZDX5jc3UzLWrhAJFcl4NkTBq3ZU2SZXDxQRiqQR5SJFcxzc8JFXXqZLJenD CVo1gpXlHfAUS8MRQlGtxnLU7STJRnA4ptwmPvJHReENFVDEwxGONMSRsvWFBDWQVeKKRvLpYbRpGuFB HxEVDoFIURIQR4XLBtMwRvMIZoIXHuZS7ATVUrM937 iwRuAY4BWb8YIgDnWL9qck9OIEXsSSNcLazHHhl0YJvaIK7GtEQoqLB0ZDPqDYSUUuYwS7adf6QaKXRk FNFOCIjzMU1Kt6MuzLGpZGa+Ae0VFN4sv8ZmTCs2ABKuQB7xus7FWUiOTuNzU4ByoRaeLKvjRFNzxPFS wGSkTGTgTNBmmhZbGtWnmDdinInhIQHmXXJkVc2oHJ 9gWTHvCXDxEkB9QPRYGI8DCIQkIHUspGYhKEVbKMFDER9ZQIxaMCI7WXJdmoExeWTyGCusWB3VXYTjsf QgNTAgMCBSDQo+Uw0LIW5wj3UoHSe3ZkWlNW8wvk6PUKoIGbOxP4N1lHGuP9V1DUumMr4QEPZcCBKlMS ocJFRZCHvwAT4OZA4vrzV3LH2CtSTsLJZtQHFtkNXp EDp5T01lvWTuBJhuWQ0OIXR+Gayla+Yq4JNTZiUYReQVFiLxXtAVTCTyEtT7YeL5BKn0CcU8VtSU16nXkg awOjMUcqLR6WGK0nYYIqMISPFM9CaRGfrB3tccP8NMAjLYPSWaImP37crGHvIKHvFVT1XWRiFz7YOYXn A8RyfeIhjVdqgeGeQDVmHZGRLU9EORhulhBhoBEldA hzWO19lUlfBB6VOe4LVjQjYA1meq6SmGCtCq6CHXA8Xc7QKUUqYNQiXILdXJY1IMKtChLxJStmIHXsDE ChLPE5SNYgQAHmIQ7AVeBkJUXdPzQ2IODfOFAkIHMslf7NYNIyDJB6JuP2MHElQAFkXYJhYDciNQOyDY XtTOB1NTWqUBNrNO3GClKkZZKyMUJyZNOzGWAsHZCo cf3PNLCeKEAeEUTdXELoHFOtYIAyVVsuGBGpRRY7JMJdWUSuTOHhWR4PVsDmVEWsVNdcErIdZLLtHTUt rx4KDWVwBVHsWpigUGVpPRVpNXTsKTwcXPIbPQQiZPG8XXLyMGXlPW9ZVrDtGZXmHCY4XvyeTZGlPKAb ck9OAFLxQCXwFjv5DnPyOQZlEQNiPQpxSIShMFDgKs q0LNRfWLFfMK3EChAcWZKfWhJ9JPYrFEPzALUcet9LSOFyXTEmBDW5UvJjOJMsSOLmUMqaMYOzECN7Tp xiDEGbZFGxAY5EUnZyDABhFyd5YwTrFNAqDUSpss9RKCMhIHBmXHU4AxPoUJYxAWQwQOaaQDDmCOOmXh J8BAWfUOZkSY8XSlOuUPOjMlS8PjByYWKbEKYdna5E LGVcKILnYUTxNbPsKMEiTZQvSPmxDERrABImOxX1XVDqXRQkQK5FYcLiDCPbTgQ3LEUhSBLkHZJxuj8B PYLuLADnWyn9KFFtVQZlAICvHRmnUNQlZWHnVMNkFDLiDBBpRE5LGtDrABMfLxCcSELiESKvRNWrxb5W LBXiFJBmHBUwYHIcLDHkXBAtYQczOPUlCFE6XYO7FR HqWISbTJ6YRyVsNZRfUhR8DDMoXFTbMYDqpo6NYVZbRTCbWSG7EKZiTRLyWITyQBepYTCwBBA9EtLsXU VaYLNuOQ6EZhFqIEOoDwA5TGHbLYJuGXQlaj8GFNViFDNzWhywTVHaCADvHBGcDVdnLZIbQQQ1TOO2TQ XqXQHtEV7FTcNoOLRnQkzwQBWlNQNlQPWgtm4FGSRq MSA2KwqjYdLdPOOaECJpLGrcWBAbXMJ1HSBlILKrDGFhNU0QAgBsKRCcJtm6AhWrDCByHYAeec7MVLKw ZQO8KGF5QYXpRMNgZYXrFAwoWBPkXZK0IHE9PYSvTHZzEX1PPfHrOEHeLkr5DaIkARGsLCWagf8WRGJm DVY2TVE6IgHgGTWjTCXdMCcrNVWyMAO2CGU8FLPzDL GoKN9JClCmGPNwTbG7LXHuFDXuAVFrpi3XOINgWIH4CDSkLILaTSQySEMxQJcmMTWuZIr0QnJuNHCbTX MtOE7WPhTcADEqFtN3CdUeHSIfRQLnlp6FDXMwRRS2FFCqWUOuVSTaETRmSIkjVUJeDEn6EVYnDSCkGS FpMQ9CCgJcTKQxFig9NFNwQWIdFSAmbz3IDDTlAQJ0 GjM2FjVjVJTcWDUoEYtkPENgPDg7BAPeOJGgTSDyLM0XVdSyVFicTRTSXxd1WNzxE9x3REK2Dm7PM9Ib n2FmVTCnHAGMFAqxFQ3rxfLmOTYvZj4FK0kPMuq1FnM0QqC4EioiPGL0UZX9RQWlSMN5LSDhBZHaDYFt Ij6vXWeeIqRzTts6YHY1Ngp9ACxyZOVhZsaqJgZrZy LuHfNjFhBwXM2XCo6TNwP8IUB9bGOtHj0AYsnaUDRKCeCfOO8CKLe= ID Date Data Source [id number] 11/07/2020 08:36:49 AM EDT [facility] Name Value Range Interpretation Code Description Data Tina rce(s) Supporting Document(s) History and Physical [facility] FAQQFd9nJbVXSbIu41/PIQabDSLmh2RaKQqrJGq3VNhlMNRrC5CfKBM8qB9fQOJ3JSxHKeSuQhUyNtHr lbm [file] ICAgICAgICAgICAgICAgICAgICAgICAgICAgICAgICAgICAgICAgICAgICAgICAgICAgICAgICAgICAg ICAgICAgICAgICAgICAgICAgICAgDQogICAgICAgICAgICAgICAgICAgICAgICAgICAgICAgICAgICAg ICAgICAgICAgICAgICAgICAgICAgICAgICAgICAgIC AgICAgICAgICAgICAgICAgICAgICAgICAgICAgICAgDQogICAgICAgICAgICAgICAgICAgICAgICAgIC AgICAgICAgICAgICAgICAgICAgICAgICAgICAgICAgICAgICAgICAgICAgICAgICAgICAgICAgICAgIC AgICAgICAgICAgICAgDQogICAgICAgICAgICAgICAg ICAgICAgICAgICAgICAgICAgICAgICAgICAgICAgICAgICAgICAgICAgICAgICAgICAgICAgICAgICAg ICAgICAgICAgICAgICAgICAgICAgICAgDQogICAgICAgICAgICAgICAgICAgICAgICAgICAgICAgICAg ICAgICAgICAgICAgICAgICAgICAgICAgICAgICAgIC AgICAgICAgICAgICAgICAgICAgICAgICAgICAgICAgICAgDQogICAgICAgICAgICAgICAgICAgICAgIC AgICAgICAgICAgICAgICAgICAgICAgICAgICAgICAgICAgICAgICAgICAgICAgICAgICAgICAgICAgIC AgICAgICAgICAgICAgICAgDQogICAgICAgICAgICAg ICAgICAgICAgICAgICAgICAgICAgICAgICAgICAgICAgICAgICAgICAgICAgICAgICAgICAgICAgICAg ICAgICAgICAgICAgICAgICAgICAgICAgICAgDQogICAgICAgICAgICAgICAgICAgICAgICAgICAgICAg ICAgICAgICAgICAgICAgICAgICAgICAgICAgICAgIC AgICAgICAgICAgICAgICAgICAgICAgICAgICAgICAgICAgICAgDQogICAgICAgICAgICAgICAgICAgIC AgICAgICAgICAgICAgICAgICAgICAgICAgICAgICAgICAgICAgICAgICAgICAgICAgICAgICAgICAgIC AgICAgICAgICAgICAgICAgICAgDQogICAgICAgICAg ICAgICAgICAgICAgICAgICAgICAgICAgICAgICAgICAgICAgICAgICAgICAgICAgICAgICAgICAgICAg SGXxYLSrGEJfSYVuKNIpLBWqRNQrCAWsVUWaCQAwTRe3M5ptPRKfSTZkGY0sFZh9Xc2+DQoNCmVuZHN0 itDqvH7GQR8bz2UaEUqlBJGxf9SmBVf4OF7KXJQvMS uxSA3QVZnatg5AFRAuDSYatTZKr3dqCvIqBJI2PHRhRnxjCP9XSGErO1wdwbJuNLDxFSLYOAeyAWNJFR tpGTFRGESeMYJgRtYwRjHbWUDjFE9APMSjQ123lpGoNB5FNz4GSfIbSY6tvy3XJqBkYWKlEyeKPnc3CC tjHV0CpUTkuBEtAYTcZTRGQvTtT1xgb4GgQhLmDLFG XOnxXB8Gd3XudMEhPNp+Mp5CAL5tn4VnYChnEIUjPU4zfr3TYZkKMwJdM9QwbYkvSHhtNAUopIUYfYXl dI1xU1lxdtlaPUWlDALnKh2oEL6gLNBuTPMpUeFmXYLRQB3AAOUyJDDopTUmYHBzSOAHEM7HUXpjPOT7 TRMkahNapNSpDRseHF3CSSVccnZnLzPqVKRQNXv+Pg 7OZN8cb1VkZFpzFZXzGD2dgz4OTLzHUzOmL4I6bDXvR3W2RHsyGp1CZYLfSSByKhXbJENWQSgvWP7WRV 3shkD9XC9XsYGvAVRtJFUdsKUvQOu2B24fkGJqEEzpHA7BFVR+Gayla+Dk8DICJrDUJuUZXrSvQmNKEICq OhP9ZcH2UUi9FuV7DpJW99nUjtxgTaHUviQU0NKZ5a DPXgLASLLP8TkMXexC5jaoTpIlHzNTWVQzQtY44rtUFfCQFyNXFhNJFiGy7RHAKoE8EqcaWpdKiptcCs MBSsPFZYXH0EXGxurzEnsQEiiAtcUA40qZboSX6VWb5ZOhTnQL1hxw7AqGOoAf8BNGLnYk7TVJGmYNOv TLYhDYO7TNFcCwNqQBjuUEXyUOSlNYK2WXKjRLTxGZ 8OSrCxVDAkDmE3BuHwFBStSYJokv9IUAWeFBCcDTJ6XgTjRLKjABFtBEphMRRkDLHoHJS1HVJmKNQfWQ 9UAaJpJNNkVUPiBLPrXEKlTUKnmu5JJUIjAXPlLoYuVDGfBCZdNEHsOWfzTYBgZZD1PLF1JYAmHOCiZB 6ESfFjZVZoAPNjXANyOAVmRQTill5TGJXhKRHrMSx8 TSLkAQMeKOWqDQzbDQPuQXV6NUMdWHOrTKXhKK4BBmOnBRBoHLLhNHUoZTYaFRVahi8WXMSfNFEkZtBi AdAhZXOzJMZgWLkhQAOhHQD1WOqaBSMgHLTxHA9FLyErNFAuSNUfLBnmOGXmDHMtkn3VIPQaXWVpXgR4 YRDjQVRrPVUbUZxdBKCoQXP2ALC2RDBoQFUkFG5PFd NnFOHaZSS2ZrqhLQXqARIeik2SWTFpPTFiXgC0XkQjGTTyKWPnDWiyYVWmVCD5Xyx6HGZqYPTvGL6BCu YkJYKeHQn6TiciZWIfWFArul3AMBAgZBHjYMY9ZnExSPWdEEEnVPamPBZpQZI3DgklQGJqMHUfPE0TSi KyQVFrClu0PCouKLFmCBPhel1SRSXeBWVvRCKpKWZf TTNxZZOfWHucQTVnFCOzQjl5GEFjXGJkWR7YPfNnARRcXwTbIIgkPNWiISTdnv9BVQYtOYYwTYStQwCq YFAuTRRiPYcqVSOdAFHeTWl5ONVsSLNhAX5HKqSiYUAtUkY8ZjbyMYDkIKMxzn1DGNVwVPJmTfoiCZJn YPWdSHNoZZxiZHFhXKIiXOKlRPWhRCOfHE3TZtVvPW FgFcBvWpHsOFVnEBCkwx2YRLOeXNPxWJwmQKDgHPDpUFVtRDhwCUMyPBS7MYtrPLRfJALoCR8ZEjAjLS TrNjDiJWHnRBLvJNWywc5SfBLoaKemst8RZWbJQm1ZuKhiDOS2PQovAk8clWTzBBIlCBRHUt4PefOcUG LtHYDDARiaRSVqLYC7AcZsHnO9RSXdBSGyKMX8DUDz QRBcQAF6XFIzLkD6YbC2OCe9DAOqOMJgKaR9QyI4RQmfRRIuRSKoYkg5EYMzAKG+BM2yWLj+Qv7As7Vo piV8nlRgXXtdHUF8QC2EAOKQZ0WDQq== ID Date Data Source [id number] 11/06/2020 12:10:00 AM EDT [facility] Name Value Range Interpretation Code Description Data Tina rce(s) Supporting Document(s) SARS coronavirus 2 RNA [Presence] in Res piratory specimen by NIYAH with probe detection NEGATIVE [facility] This lab was ordered by [facility] a nd reported by [facility]. Procedure Social History Code Duration Value Status Description Data Source(s ) Alcohol intake 11/06/2020 12:00:00 AM EDT Lifetime non-drinker (finding) completed Lifetime non-drinker (finding) [facility] Tobacco use and exposure 11/06/2020 12:00:00 AM EDT Never used co mpleted Never used [facility] Smoking 11/06/2020 12:00:00 AM EDT Never smoker completed Never s moker [facility] Vital Signs ID Date Data Source UNK Name Value Range Interpretation Code Description Data Source(s) Systolic blood pressure 118 mm[Hg] 118 mm[Hg] M [facility] ([facility]) Diastolic blood pressure 84 mm[Hg] 84 mm[Hg] [facility] ([facility]) Heart rate 95 /min 95 /min [facility] ([facility]) Body temperature 97.2 [degF] 97.2 [degF] [facility] ([facility]) Respiratory rate 16 /min 16 /min [facility] ( [facility]) Oxygen saturation in Arterial blood by Pulse oximetry 98 % 98 % [facility] ([facility]) Body weight 208.38 [lb_av] 208.38 [lb_av] [facility] ([facility]) Body weight 94.519 kg 94.519 kg [facility] ([facility]) Body height 63 [in_i] 63 [in_i] [facility] ([facility]) 5'3" Body height [Percentile] 31 % 31 % [facility] ([facility]) Body mass index (BMI) [Ratio] 36.9 kg/m2 36.9 k g/m2 [facility] ([facility]) Body mass index (BMI) [Percentile] 98 % 9 8 % [facility] Body surface area Derived from formula 1.97 m2 1.97 m2 [facility] ([facility]) Body height [Percentile] 31 % 31 % [facility] Heart rate 73 /min 73 /min [facility] ([facility]) Body temperature 98.1 [degF] 98.1 [degF] [facility] ([facility]) Oral Body weight 214.00 [lb_av] 214.00 [lb_av] [facility] ([facility]) Body weight 97.070 kg 97.070 kg [facility] ([facility]) Body mass index (BMI) [Percentile] 98 % 9 8 % [facility] ([facility]) Body surface area Derived from formula 1.99 m2 1.99 m2 [facility] Systolic blood pressure--sitting 120 mm[Hg] 120 mm[Hg] [facility] Diastolic blood pressure--sitting 71 mm[Hg] 71 mm[Hg] [facility] ([facility]) Respiratory rate 16 /min 16 /min [facility] Oxygen saturation in Arterial blood by Pulse oximetry 99 % 99 % [facility] Body height 63 [in_i] 63 [in_i] [facility] ([facility]) 5'3" Body mass index (BMI) [Ratio] 37.9 kg/m2 37.9 k g/m2 [facility] Body weight 98.034 kg 98.034 kg [facility] ([facility]) Body mass index (BMI) [Ratio] 38.3 kg/m2 38.3 k g/m2 [facility] ([facility]) Systolic blood pressure 110 mm[Hg] 110 mm[Hg] M [facility] ([facility]) Diastolic blood pressure 70 mm[Hg] 70 mm[Hg] [facility] ([facility]) Heart rate 72 /min 72 /min [facility] ([facility]) Body temperature 97.3 [degF] 97.3 [degF] [facility] ([facility]) Respiratory rate 16 /min 16 /min [facility] ( [facility]) Oxygen saturation in Arterial blood by Pulse oximetry 98 % 98 % [facility] ([facility]) Body weight 216.12 [lb_av] 216.12 [lb_av] [facility] ([facility]) Body height 63 [in_i] 63 [in_i] [facility] ([facility]) 5'3" Body height [Percentile] 31 % 31 % [facility] ([facility]) Body mass index (BMI) [Percentile] 98 % 9 8 % [facility] ([facility]) Body surface area Derived from formula 2.00 m2 2.00 m2 [facility] ([facility]) Respiratory rate 18 /min 18 /min [facility] ( [facility]) Heart rate 74 /min 74 /min [facility] ([facility]) Systolic blood pressure 124 mm[Hg] 124 mm[Hg] M [facility] ([facility]) Body height 63 [in_i] 63 [in_i] [facility] ([facility]) 5'3" Body height [Percentile] 31 % 31 % [facility] ([facility]) Body mass index (BMI) [Ratio] 38.4 kg/m2 38.4 k g/m2 [facility] ([facility]) Body mass index (BMI) [Percentile] 98 % 9 8 % [facility] ([facility]) Body surface area Derived from formula 2.00 m2 2.00 m2 [facility] ([facility]) Diastolic blood pressure 82 mm[Hg] 82 mm[Hg] [facility] ([facility]) Body temperature 97.9 [degF] 97.9 [degF] [facility] ([facility]) Oxygen saturation in Arterial blood by Pulse oximetry 98 % 98 % [facility] ([facility]) Body weight 217.00 [lb_av] 217.00 [lb_av] [facility] ([facility]) Body weight 98.431 kg 98.431 kg [facility] ([facility]) Heart rate 100 /min 100 /min [facility] ([facility] Systolic blood pressure 132 mm[Hg] 132 mm[Hg] M [facility] ([facility] Diastolic blood pressure 84 mm[Hg] 84 mm[Hg] [facility] ([facility] Body height 63 [in_i] 63 [in_i] [facility] ([facility] 5'3" Body weight 217.00 [lb_av] 217.00 [lb_av] [facility] T ([facility] Body mass index (BMI) [Ratio] 38.4 kg/m2 38.4 k g/m2 [facility] ([facility] Body height [Percentile] 31 % 31 % [facility] ([facility]) Body mass index (BMI) [Percentile] 98 % 9 8 % [facility] ([facility]) Body mass index (BMI) [Ratio] 38.5 kg/m2 38.5 k g/m2 [facility] ([facility]) Systolic blood pressure 132 mm[Hg] 132 mm[Hg] M [facility] ([facility]) Diastolic blood pressure 84 mm[Hg] 84 mm[Hg] [facility] ([facility]) Heart rate 100 /min 100 /min [facility] ([facility]) Body surface area Derived from formula 2.00 m2 2.00 m2 [facility] ([facility]) Body temperature 98.2 [degF] 98.2 [degF] [facility] ([facility]) Respiratory rate 18 /min 18 /min [facility] ( [facility]) Oxygen saturation in Arterial blood by Pulse oximetry 99 % 99 % [facility] ([facility]) Body weight 217.38 [lb_av] 217.38 [lb_av] [facility] T ([facility]) Body weight 98.601 kg 98.601 kg [facility] ([facility]) Body height 63 [in_i] 63 [in_i] [facility] 5'[facility]" ID Date Data Source [id number] 11/19/2020 08:34:58 AM [facility] Name Value Range Interpretation Code Description Data Source(s) WEIGHT RECORDED 210.6 lb 210.6 lb [facility] Body height Measured 63 in 63 in [facility] TRANSFER FROM [facility] Patient Treatment Plan of Care Planned Activity Planned Date Details Description Data Source (s) 24 HR Bupropion Hydrochloride 150 MG Extended Release Oral Tablet 11/11/2020 09:00:00 AM [facility] 24 HR Bupropion Hydrochloride 150 MG Extended Release Oral Tablet 11/11/2020 12:00:00 AM [facility] Escitalopram 10 MG Oral Tablet 11/10/2020 12:00:00 AM [facility] Prazosin 2 MG Oral Capsule 11/10/2020 12:00:00 AM [facility] acetaminophen (TYLENOL) tablet 650 mg 11/06/2020 05:50:40 AM [facility] Magnesium Hydroxide 80 MG/ML Oral Suspension 11/06/2020 05:50:39 AM [facility] Aluminum Hydroxide 40 MG/ML / Magnesium Hydroxide 40 MG/ML / Simethicone 4 MG/ML Oral Suspension 11/06/2020 05:50:39 AM [facility] Ondansetron 4 MG Disintegrating Oral Tablet 11/06/2020 05:50:39 AM [facility] Nicotine 2 MG Oral Lozenge 11/06/2020 05:50:39 AM [facility] Haloperidol 5 MG Oral Tablet 11/06/2020 05:50:39 AM [facility] Escitalopram 10 MG Oral Tablet [facility] Ranitidine 150 MG Oral Tablet [facility]
--- OUTSIDE RECORDS SUMMARY | 2021-03-26 15:32 | CCD ---
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 Supporting Document(s) White Blood Count 8.2 10 4.0-10.0 Normal (applies to non-numeri c results) [facility] ([facility]) Red Blood Count 5.12 10 4.00-5.40 Normal (applies to non-numeric results) [facility] ([facility]) Hemoglobin 14.2 g/dL 12.0-15.5 Normal (applies to non-numeric resul ts) [facility] Hematocrit 43.8 % 36.0-47.0 Normal (applies to non-numeric resul ts) [facility] ([facility]) Mean Corpuscular HGB Conc 32.4 g/dL 32.0-36.5 Normal (applies to non-numeric results) [facility] ([facility]) Mean Corpuscular Hemoglobin 27.7 pg 27.0-33.0 Norm al (applies to non-numeric results) [facility] ([facility]) Mean Corpuscular Volume 85.5 fl 80.0-96.0 Normal ( applies to non-numeric results) [facility] ([facility]) Platelet Count, Automated 279 10 150-450 Normal (applies to non-numeric results) [facility] ([facility]) Red Cell Distribution Width 12.5 % 11.5-14.5 Norm al (applies to non-numeric results) [facility] ([facility]) Neutrophils % 60.7 % 36.0-66.0 Normal (applies to non-numeric re sults) [facility] ([facility]) Lymph % 30.2 % 24.0-44.0 Normal (applies to non-numeric resul ts) [facility] ([facility]) [place] % 7.0 % 2.0-8.0 Normal (applies to non-numeric resul ts) [facility] ([facility]) Eos % 1.3 % 0.0-3.0 Normal (applies to non-numeric resul ts) [facility] ([facility]) Baso % 0.7 % 0.0-1.0 Normal (applies to non-numeric resul ts) [facility] ([facility]) Immature Granulocyte % 0.1 % 0-3.0 Normal (applies to non-n umeric results) [facility] ([facility]) Nucleated Red Blood Cell % 0.0 % 0-0 Normal (applies to n on-numeric results) [facility] ([facility]) Lymph # 2.5 10 1.5-5.0 Normal (applies to non-numeric resul ts) [facility] ([facility]) Neutrophils # 5.0 10 1.5-8.5 Normal (applies to non-numeric re sults) [facility] ([facility]) [place] # 0.6 10 0.0-0.8 Normal (applies to non-numeric resul ts) [facility] ([facility]) Eos # 0.1 10 0.0-0.5 Normal (applies to non-numeric resul ts) [facility] ([facility]) Baso # 0.1 10 0.0-0.2 Normal (applies to non-numeric resul ts) [facility] ([facility]) ID Date Data Source [id number] 03/09/2021 09:11:00 AM EDT [facility] ([facility]) Name Value Range Interpretation Code Description Data Tina rce(s) Supporting Document(s) Thyrotropin [Units/volume] in Serum or Plasma 0.676 uIU/ML 0. 463-3.98 Normal (applies to non-numeric results) [facility] ([facility]) <content>note:<nlbl:[email or web address]> </content>
<content></content> ID Date Data Source [id number] 03/09/2021 09:11:00 AM EDT [facility] ([facility]) Name Value Range Interpretation Code Description Data Tina rce(s) Supporting Document(s) Cholesterol Level 114 mg/dL Normal (applies to non-numeri c results) [facility] ([facility]) HDL Cholesterol 51 mg/dL Normal (applies to non-numeric results) [facility] ([facility]) Triglycerides Level 104 mg/dL Normal (applies to non-nume marquez results) [facility] ([facility]) Cholesterol Risk Ratio 2.235 Normal (applies to non-n umeric results) [facility] ([facility]) LDL Cholesterol 42 mg/dL Normal (applies to non-numeric results) [facility] ([facility]) Non-HDL-C 63 mg/dL Normal (applies to non-numeric resul ts) [facility] ([facility]) ID Date Data Source [id number] 03/09/2021 09:11:00 AM EDT [facility] ([facility]) Name Value Range Interpretation Code Description Data Tina rce(s) Supporting Document(s) Glucose, Fasting 75 mg/dL 70-100 Normal (applies to non-numeric results) [facility] ([facility]) Creatinine For GFR 0.67 mg/dL 0.55-1.30 Normal (applies to non -numeric results) [facility] ([facility]) Sodium Level 141 meq/L 136-145 Normal (applies to non-numeric res ults) [facility] ([facility]) Blood Urea Nitrogen 10 mg/dL 7-18 Normal (applies to non-nume marquez results) [facility] ([facility]) Chloride Level 107 meq/L 98-107 Normal (applies to non-numeric r esults) [facility] ([facility]) Carbon Dioxide Level 29 meq/L 21-32 Normal (applies to non-num ariel results) [facility] ([facility]) Potassium Serum 3.7 meq/L 3.5-5.1 Normal (applies to non-numeric results) [facility] ([facility]) Ast/Sgot 19 U/L 7-37 Normal (applies to non-numeric resul ts) [facility] ([facility]) Anion Gap 5 meq/L 8-16 Below low normal [facility] Calcium Level 8.5 mg/dL 8.5-10.1 Normal (applies to non-numeric re sults) [facility] ([facility]) Alt/SGPT 26 U/L 12-78 Normal (applies to non-numeric resul ts) [facility] ([facility]) Alkaline Phosphatase 87 U/L 45-117 Normal (applies to non-num ariel results) [facility] ([facility]) Bilirubin,Total 0.4 mg/dL 0.2-1.0 Normal (applies to non-numeric results) [facility] ([facility]) Total Protein 7.0 GM/DL 6.4-8.2 Normal (applies to non-numeric re sults) [facility] ([facility]) Albumin 3.5 GM/DL 3.2-5.2 Normal (applies to non-numeric resul ts) [facility] ([facility]) Albumin/Globulin Ratio 1.0 1.2-2.2 Below low normal [facility] ([facility]) ID Date Data Source [id number] 03/09/2021 09:11:00 AM EDT [facility] ([facility]) Name Value Range Interpretation Code Description Data Tina rce(s) Supporting Document(s) Hemoglobin A1c 5.1 % Normal (applies to non-numeric r esults) [facility] ([facility]) <content>REFERENCE RANGES:</content><br/ ><content></content>
<content><=5.6% NORMAL</content>
<content>5.7-6.4% SUGGESTS IMPAIRED GLUCOSE METABOLISM/PREDIABETIC</content>
<content>>= 6.5% ABNORMAL</content>
<content></content> Estimated Average Glucose 100 mg/dL 60-110 Normal (applies to non-numeric results) [facility] ([facility]) ID Date Data Source [id number] 03/09/2021 09:11:00 AM EDT [facility] ([facility]) Name Value Range Interpretation Code Description Data Tina rce(s) Supporting Document(s) Red Blood Count 4.81 10 4.00-5.40 Normal (applies to non-numeric results) [facility] ([facility]) White Blood Count 7.2 10 4.0-10.0 Normal (applies to non-numeri c results) [facility] ([facility]) Hemoglobin 13.3 g/dL 12.0-15.5 Normal (applies to non-numeric resul ts) [facility] ([facility]) Mean Corpuscular Volume 85.0 fl 80.0-96.0 Normal ( applies to non-numeric results) [facility] ([facility]) Hematocrit 40.9 % 36.0-47.0 Normal (applies to non-numeric resul ts) [facility] ([facility]) Mean Corpuscular Hemoglobin 27.7 pg 27.0-33.0 Norm al (applies to non-numeric results) [facility] ([facility]) Mean Corpuscular HGB Conc 32.5 g/dL 32.0-36.5 Normal (applies to non-numeric results) [facility] ([facility]) Red Cell Distribution Width 12.7 % 11.5-14.5 Norm al (applies to non-numeric results) [facility] ([facility]) Neutrophils % 49.6 % 36.0-66.0 Normal (applies to non-numeric re sults) [facility] ([facility]) Platelet Count, Automated 289 10 150-450 Normal (applies to non-numeric results) [facility] ([facility]) Lymph % 37.1 % 24.0-44.0 Normal (applies to non-numeric resul ts) [facility] ([facility]) Baso % 0.8 % 0.0-1.0 Normal (applies to non-numeric resul ts) [facility] ([facility]) [place] % 9.6 % 2.0-8.0 Above high normal [facility] ([facility]) Eos % 2.5 % 0.0-3.0 Normal (applies to non-numeric resul ts) [facility] ([facility]) Immature Granulocyte % 0.4 % 0-3.0 Normal (applies to non-n umeric results) [facility] ([facility]) Nucleated Red Blood Cell % 0.0 % 0-0 Normal (applies to n on-numeric results) [facility]) Lymph # 2.7 10 1.5-5.0 Normal (applies to non-numeric resul ts) [facility] ([facility]) Neutrophils # 3.6 10 1.5-8.5 Normal (applies to non-numeric re sults) [facility] ([facility]) [place] # 0.7 10 0.0-0.8 Normal (applies to non-numeric resul ts) [facility] ([facility]) Baso # 0.1 10 0.0-0.2 Normal (applies to non-numeric resul ts) [facility] ([facility]) Eos # 0.2 10 0.0-0.5 Normal (applies to non-numeric resul ts) [facility] ([facility]) ID Date Data Source [id number] 11/19/2020 03:37:00 PM EDT [facility] ([facility]) Name Value Range Interpretation Code Description Data Tina rce(s) Supporting Document(s) Laboratory test finding (navigational concept) Laboratory test result [facility] ([facility]) {DIAGNOSIS: F33.0~{MEDICATIONS/DECLARED : BUPROPION, LEXAPRO, PRAZOSIN~{PRESCRIPTION INFO:~{PRES PDF Laboratory test result [facility] ([facility]) {DIAGNOSIS: F33.0~{MEDICATIONS/DECLARED : BUPROPION, LEXAPRO, PRAZOSIN~{PRESCRIPTION INFO:~{PRES ID Date Data Source [id number] 11/29/2020 05:08:00 PM EDT [facility] Name Value Range Interpretation Code Description Data Tina rce(s) Supporting Document(s) Drugs identified in Urine FINAL [facility] TOXASSURE SELECT 13 (MW) Test [...] clinical consultation, please call . Report . [facility] ID Date Data Source [id number] 11/10/2020 03:58:56 PM EDT [facility] Name Value Range Interpretation Code Description Data Tina rce(s) Supporting Document(s) Discharge Summary [facility] ZLNFXw3bOvPFEtFh39/XXUxwEWAep0VhMHmtAPv0VImzITTyQ2SyQYZ6aG2gSXM9BPkRJcHdPdVcBsJ0 lbm [file] ICAgICAgICAgICAgICAgICAgICAgICAgICAgICAgICAgICAgICAgICAgICAgICAgICAgICAgICAgICAg UDUtEGGdUSEoZTOoOMNmVGUiNTXoYSBcNOLkFGJkGBKwOETlSZ9HLMZcCKWwXTSlZGAmOVHvYAIwYLKl ICAgICAgICAgICAgICAgICAgICAgICAgICAgICAgIC DfTYZiRKZaTWLoSBIqQAVaHEGhYKPsXUQeOLExIRBxTENxIOLfZWBeLNEjMBRdNF3LMPVsRBNfJFTzNW AgICAgICAgICAgICAgICAgICAgICAgICAgICAgICAgICAgICAgICAgICAgICAgICAgICAgICAgICAgIC RoQHIjPZQbHDHlEZZuVMVyYGZlPVSgRREkODMhXT8Z ICAgICAgICAgICAgICAgICAgICAgICAgICAgICAgICAgICAgICAgICAgICAgICAgICAgICAgICAgICAg CWJvZHCvLMJuLJSvLWCzBGUrOKJbERXrKQEsYAGbURNvEDAeEJTwAP7KRAKbSRYhMPVgLBKtRADuCEHf ICAgICAgICAgICAgICAgICAgICAgICAgICAgICAgIC BsJCMaNLEqYPElXEWuXKLtDYYuFSVmOKNpBPNnPUNsBNFqXNNwXRXdFBFbMFCuPHVzPM1PDCRqKQGsQU AgICAgICAgICAgICAgICAgICAgICAgICAgICAgICAgICAgICAgICAgICAgICAgICAgICAgICAgICAgIC AgICAgICAgICAgICAgICAgICAgICAgICAgICAgICAg EQ1WQOHqEMNfVBQiJXAxEUCzCPSlOSEjVONwWKSgCHKhCYXxWHEnDMNiTPMwLFYxZSYaCPErXPZaANCo FRLxIBAyKDVqYVLwCKEcNJPaCIYfGAJiLAWuBJSgLHWtKRQyESJnJCMqNO6WWETwWCZeCLNhSICoLDUs ICAgICAgICAgICAgICAgICAgICAgICAgICAgICAgIC DhFREfDZReCZSkNBKhHLRbWCTtKLEuGMCrENTeCWMhMOFdXOOqLEMqQAHpUGRaLYKlBOVmLY5FFVOlMC AgICAgICAgICAgICAgICAgICAgICAgICAgICAgICAgICAgICAgICAgICAgICAgICAgICAgICAgICAgIC AgICAgICAgICAgICAgICAgICAgICAgICAgICAgICAg ECMqYO0HTXCrFPHgOWMfFYVxFJEkORKdWURoAMDkPFMpOQIxDEQaUATiUVOtXZUqJOXoKUBhNJWzYBYt CJIvVTEiBNCkGMNtTOYoNACaQGRaGIQuPUFtVKBgBCJwDEWuSMUtTCJnTZScGF1KEY65eMOok6B6NEBc YG2esbt/Aw8ERPipupGutUQvAW2KOwDdDG4ldy5GMg XdZT7idy1KSRdXLkGrQ6P3tOOsPYRhBJWYStPtH32jHCzwBc48KLzsLVNqCyTdOXw6Lc0BWrSbD5grEB DfLpZ7HXOrKbY2AQQsOkC5RXRiUlHtWWLeUPMxWMVzFKGGVKI8KWLnOcXaOzNoJSKbYUxtLFPPXBCbSY BaXbFbETomKO0Xu7YcqTT4HDj+Fm1YHL3iy6XhEHm3 ACWoIO1wbq9WWXhTPpEaG5JsxgM1SLV9YYAtKf8JEXAjGLTigID1KVQfPSAFHaLpA2HvaS88QIICEl6+ YQrcyxBcGetHFnB1BQVdu1RcNDt6QN9XYFPvKIu0cSHkBYxlG6uiffgjUDJ7gA0ynwbbGceyFALnlCie LKcsQX6jQG0KCKC8NUMiDBKrPeEsPEQzXJofVdVLDV zDMxUqD6Myw4NxBbL7KKGvGzVkMCufYBFtEtN0QE48gCagVF4EEJPpDLIbAG84JQP4GDQrBt2LIs1AWi NgQM8wex4JUbUxTAFyFieHXva9CYwsWM2DwDGyQ6TffXInl6oBQhRkI6VAJDH2GYIaSt1CDREjAmGlUD LpOHiiGU2iNJWgKXHHuUyectM5TV8PYM1kskObGY4L HyBrIj2bXr4VBcZkA6DwN1BrHQGeQUVNTUkdOW1GNZxrAJ5yID0Qf4IAnOLmlU8tje9KIIMqXBIjVejc lu4RJjgbU0Q7jTrzKINkLZjxCFEXSTmjPY1RGKNvXMJ7LMW9QrUmXLPGExRpQ93zLS2GH9Qes53dUlZ7 RKZlMtAqQWhiYY93uXvwyrTtgBWdaCnuEW9TFt0+DQ zvzlLiJonRWkpvXZUUNnHkWwTASvUmXRGxUGQxKDXhZpR5VxKnQz5VXWSnMOClXSBjJkKuGFHiMQEoAN fiSERvJOOeHFX5GLKcFQNdDA3UIyOoRELsIdJeSULoUHOgNHUkrb9ELWFxQAMvVCU3RxJyAILfRPKyYU jaVKCcLNW6KzFhIROgETFiPG7IDnCdUTQrVYI3GGOh CXEtXECmce3CPNIoWNVoJVLcWUSmQZNhIEDnZWeyNJVlWVK2VQA0ROHoTVYfHX1XZqVfAZWuNMD2OTQb ULBoXBPegf0HNSPwUUOsSdT3MIHbYMPiFVYyTXnyFABjOSV6NXIlJRFeLZWfHG3SOdCfXHFbKXP7QZmw ZOErXLGqxz7HSPXuGQBmHRI5MEYoCALzAADpXWarUA IiVSAtLtC0DWVwMVLdAA8ROfPsPPDtLnTzLFBjKDBeZHZsul7RDIDgTEItNMQnVcKoWSEzIXWdHLngCJ UyKDB2AGL4UKCqIMNhKJ3GOvOoKLAwFln9WEJqWZQyDIEjzu1MLUNrXQMnWHGbQyHaKLWvFCSuMRreOA OoZXKyIYYwSGKvNEUoHD3ILtFiQISeCuIgVNjgWDSp ILOvzi9LAOVlCGSnCMS4YVTxZXJwGURcBOsfYFKfUOU7BrZ2CODtEHXzUV8XRiVfAIFdYbG3WJBoKXOz FEWtmb9PEAZrKLDkObakIDSqXAMmMZSzTQukYYOlABS1IgfgIPQuTMKhYP0PSaZaERPyJua0DSZuSUDl TSJxhr2BMFNrFZRlOJV8OwBkAOZsKCHaZIoyLVVvIF K8THImELIdXZRmBJ6HFmXxYNAhDkxdXPOvUFYuJKIcgy7SXXMsFMOlFFXfQrTiSKSdSXTcHOsqCCReHH JqZvemBOKcBCDgTS8DPzLzZPSpNVI6UQozPEXuPNErxu8DFBPnUNO9RGm2PcRnPIMgYJOpYEboHSYhWE ZlDnBuLMSiXEKoOL2RUsGzBMCeSDE9YdKaENByBPZd ul7MECNgRHG5TkFvUnSaQDZmVPHbSFfiOHOzQMFnLXXuDAYvZXEaZW6QKbJtOYUpCMB3ZqkbSBBfIMFq lx6VHQBtFZE3MECoHRCbVIVgQSTaYIzyCOHwYEE2Tqe8HEWiXGRzRO4CDcCjJXLjWBB3ItKhJRFzWUIm an2BGXOzJTT5GGV1JzIyGGQgZPIiKWmjCHXyEHW3ZV Q4OSHvKINiUJ0LLtPrJIYtTIW1RNEvJKGkCFWsqh2OEXOyNQM5MFC7CMIfFFRlGPStTHqxHHQfEGIoZO ClMHQhXQCtPB5KZxMhRMGlEhVyHlqiXXRnULKowx7GJRHeLOT9VZM6EzYiALSiQTUlPNrmWSFlYVGnNF M6FCTnUYCmQY5UYdDfXIDnJbI7KDLiTHJxDDNrdc9B ENZmVLE9MRg7WeZqNCBgPVSkLXdmFAYrDANiXSJrUPGyOUDzWW8HPzKoEJZdJdEfFoCdWOTcGWEapn5B AHHiNYY8DsE9JxYqNHQdNANcAWxvDKGcSBOfAFAcEQIrIJLeNP7VBxCiRKEnKwV5EGRqFTVgBIRbcp9Z AYHfXNC3YLW6FqYhRCLiFNAeWIsoKLFwLYF7BPN3UY MuQSHkQY0CUzIpHTIjBsE9KbukUEWnFIZnbc7MaRKnsWfhme0QDLqWDh6ImUhzGGKnPOnuSa9gwVX8LZ MnHVKMTw7RvsNtFOGeHMWUGGfnYXHtTJb7MWSkQlIgVLVpQpkuQLI4EtVlWPNaOkZ7IshjDTzvCkI5YL p5ZaP2TfCyFcLbFcZhObOpKzPfYAFbKCdkMCZ9APG+ KV4zIWc+Hn4Lz1LpaxL8cjXtDXy5UCatDV1VBBQRU2DABb== ID Date Data Source [id number] 11/07/2020 08:37:34 AM EDT [facility] Name Value Range Interpretation Code Description Data Tina rce(s) Supporting Document(s) History and Physical [facility] LJLAYx5sJtSPOhAo37/WFPdpKTSss3YoNEdvYTg8IRpbOJSxM3OhOSA6rY1gRDZ7BFcEZxLmVqPnKcBg lbm [file] bN38Fnd0F2RW+qZsPSWYj5s1DaQRZO+Ee2Nj9BG2VTZCdk1rve6SwWYFJ1fe//[employer]+rlbb7I1lERiAAB0 [file] SSEL+RwSbvE+Juan Jose/7sMj1Uss+bVWwW20K2W+Y9O+9E [file] ICAgICAgICAgICAgICAgICAgICAgICAgICAgICAgICAgICAgICAgICAgICAgICAgICAgICAgICAgICAg ICAgDQogICAgICAgICAgICAgICAgICAgICAgICAgIC AgICAgICAgICAgICAgICAgICAgICAgICAgICAgICAgICAgICAgICAgICAgICAgICAgICAgICAgICAgIC AgICAgICAgICAgICAgDQogICAgICAgICAgICAgICAgICAgICAgICAgICAgICAgICAgICAgICAgICAgIC AgICAgICAgICAgICAgICAgICAgICAgICAgICAgICAg ICAgICAgICAgICAgICAgICAgICAgICAgDQogICAgICAgICAgICAgICAgICAgICAgICAgICAgICAgICAg ICAgICAgICAgICAgICAgICAgICAgICAgICAgICAgICAgICAgICAgICAgICAgICAgICAgICAgICAgICAg ICAgICAgDQogICAgICAgICAgICAgICAgICAgICAgIC AgICAgICAgICAgICAgICAgICAgICAgICAgICAgICAgICAgICAgICAgICAgICAgICAgICAgICAgICAgIC AgICAgICAgICAgICAgICAgDQogICAgICAgICAgICAgICAgICAgICAgICAgICAgICAgICAgICAgICAgIC AgICAgICAgICAgICAgICAgICAgICAgICAgICAgICAg ICAgICAgICAgICAgICAgICAgICAgICAgICAgDQogICAgICAgICAgICAgICAgICAgICAgICAgICAgICAg ICAgICAgICAgICAgICAgICAgICAgICAgICAgICAgICAgICAgICAgICAgICAgICAgICAgICAgICAgICAg ICAgICAgICAgDQogICAgICAgICAgICAgICAgICAgIC AgICAgICAgICAgICAgICAgICAgICAgICAgICAgICAgICAgICAgICAgICAgICAgICAgICAgICAgICAgIC AgICAgICAgICAgICAgICAgICAgDQogICAgICAgICAgICAgICAgICAgICAgICAgICAgICAgICAgICAgIC AgICAgICAgICAgICAgICAgICAgICAgICAgICAgICAg ICAgICAgICAgICAgICAgICAgICAgICAgICAgICAgDQogICAgICAgICAgICAgICAgICAgICAgICAgICAg ICAgICAgICAgICAgICAgICAgICAgICAgICAgICAgICAgICAgICAgICAgICAgICAgICAgICAgICAgICAg AYUwSALfYSIiRWMiSIc4R4yxKFCfLJQeVB0xIAq0Pf 8+RGeOJvRfGTZ9oaEkcM3UMM0hp2KhHImpHIYdi3TqBJa1RM5MUHMlHTyoMP4GMJxxnj6BQMGaQVJiyW DAa0odQcNeJKW5LHFrEcpoRE3KWYCgH6rqxmBeWEVpNQBVCFfbLUGYUWsuAXZMIWQrUUTiBaNvSbDjPD IzZHIcFFIIMWH1EUTnKbIdCNPtKPGjYS4YYBZlM717 ieScCC3HBa1WLxJsTW8jjo9JZDJuAPIcMngVMjk4LFroBJ6OnLAadLZ5GKUeIWWAHaTyG8bdz4EeIIQt VPZKOTavTS1Re1RpoYYcYKu+Ii7XZS9lx9GlBVu5ZHBoXX1epi1UXXjJLrGpP2WyoRibFNgmRHLjmNFN lNZhOECqILKxzqMtCuGjtCwgwAvsEVAwHOWtMp8qGE 4oQQGaDJTkErG6ALPBQP0YIGMrZYWgpKGbRJGiCFNULI2PJXyyIAW6BHAlvuZikYGsWIabYH0VGVAsbz QgNTAgMCBSDQo+Xe7RPU7qk7SuZSl6EgLtVW6gce5WDVaHEgSpP1W0uISmE7O9MVrbZq5VUVAzVTCqEB bbXXWKFRslMX0IXP7nwfE7KD4QkVAvQLLoLSCaxQOv LCe5C36exUCnBUsmIH2GWVE+Gayla+Wu7TMNAxSQDuXDUrAgMhJFOCIjFbO8JqQ1YYp7HzI0OgLR26fKkp ylVgXKmeVX6YNO9hRHIwPCHAEV2IcOVsnI3olhV7YVToFOMFZdUiX14udFFxAKTtPMB5WUCpSr8HXMJq Z8MklkEmeVcubbYgLECuRFBNYT3UEDucidRfyCAknL ttIA23iQfvFG4FTz2HExZzRL0iok8DpHDaZl2TOEG0Qq3HMCCmQTUjLFDrYHF5FFDhHqOkIWknTNFrJV SrFBI6OMGyGCMpKK0SAwTpDPZmYhA1XKKbFDWuHHEqmv8BTBGeRKB0LfD0HOIlGJUiSIRjAUbxFIIbDY ZxWRX5PLOnTOHvNX4WMnQfYARoXCHaCCJoKVZoCPGw nr4MOPSfYKJgVVDtEHYrJWUlBTTyOHlfNMKsSAB3COOoPJIxOKDtSO5VNpPuILYjMTgyXoEfUHBtPDYs rn8OTWMcACJfAvxcXTZkDCKhTBMfBIiaVAInVNAkVYH4VPVuNTGxAJ7EQnHkMFBpGLH4MoveXFWeIDHo ug9LAXAhFHKuUiq1AoNyJRDxKDXhWNioPYBwQOYoFe c4CASdMSMyLX3SOmVfRSBdVqI7TSUnUPKgANJpjr0KSNVnSRZiCGN1AlZzZGEjMEAgUDqkSMDdUFQ9Ay scFUSfTEDvUK9GRdFmYFQhJmc6MhZzONOdTAAqnh2XJDUyIISdSLK0MzTcZFVlWITfBNlnYOJnTFGfCz M7ENEjUZKhNF2NHuTtWQTwUmO2ZtWuTZGzRKFvtr1M MUEqOVAnWUDuKtIwGDLaGWInYNypMNFnFNVlRvA5XCJdBXIqTO0OEsMzRHOvXiT9JCNyIGNtPHCxsa3C SZMdSTHdMev3IXJaUFMoSVHuOTbwOOIhOBTzAYBsVPIrILRnBJ4DWqPcGXBnBuSiTDQfQTNnAMXadk5J UTTpHGNzVPQvBWHwFLXaQKGyJBtzRXSmHMH9UDB5OB UtDRAiTR2YGgFqQOIpQxG8NKIwMGOaUTTtxz2SBQJySTVaYZL0GVOgFRBzDCZzLLvrIDEhRSK6GwYpAS WhUTWqTF7OCoFuKULkGpT6HVZcEQVgVPGdmo7IYAWmZZMaTxbyTCXvPGKfSEPgHPzcOVSzAMK6AVD8ZC KsVMUuSB7DFnDrKFOiVyghUADnCLMnKMVrgh7SVFEk HVN7XwjyWbBhXOEcTSFfWGecXSOcWFG6MVTiUHYxZOJtDX2PIlBdXUSeDvg6IxNzBEJcKWPnnn6DQGJt KJS3PUT5BEZtBSQhNYGnUBjpLTGrRID1VEO2FYTmAZXcRB9MYdDdPRWcFbk2AeYcNARyTDPffh4UFRBm NJP6RPY4HiQaYHRlUBGqJRhyULCsLTV0CSA4SVAdXE CqNG5KRnVwROMoRkV7ECWyDCFlMZExix3WHAQoCGR9HSQqBKKnWLBxVKYkIDnvMOFmFKy6EbArHOAaXO OvJF7UErYcAOJyBeL7CsOfHASqXCSoxc1KSWCpPHO4OVMjDSPhLVJpDDUdMXyxSCJsCQy1OJQlCBInGJ EeAA8LLiTqYZIiIxs0IZWrBIRaAPVnuq6LOJRlUEK9 OjF1MiKxSXXzURTnXOozNCTxAYj6SDUyENRkNUHpQI6XXeArAXjeLJHKOvj9SMgmP6d6NDT5Cr9QO5Hi n5SsVMKxQTHSRWzkIP9bydPaIICsAh4JY6zEIlw3JbM0LzI9YxgoEZX0JJH7TTLhTAG9YECxCVGpXTSi Dv5tLAjvVmFdViq6FJY3Msn0GZlqEEYmAywaEnJcQf ElLsPpGsGrRS9FRp3XXuX9DSR2yEUsRs2PZzriKNCBRrUtUQ0MJSq= ID Date Data Source [id number] 11/07/2020 08:36:49 AM EDT [facility] Name Value Range Interpretation Code Description Data Tina rce(s) Supporting Document(s) History and Physical [facility] FRHFOv2pIdDBRvWv04/EELjkYHGsg8ZtOLupFJv7ZBiqIKUnA3ZzWNR9tB9wLYU9HWiULwIrRoHyNjQr lbm [file] ICAgICAgICAgICAgICAgICAgICAgICAgICAgICAgICAgICAgICAgICAgICAgICAgICAgICAgICAgICAg ICAgICAgICAgICAgICAgICAgICAgDQogICAgICAgICAgICAgICAgICAgICAgICAgICAgICAgICAgICAg ICAgICAgICAgICAgICAgICAgICAgICAgICAgICAgIC AgICAgICAgICAgICAgICAgICAgICAgICAgICAgICAgDQogICAgICAgICAgICAgICAgICAgICAgICAgIC AgICAgICAgICAgICAgICAgICAgICAgICAgICAgICAgICAgICAgICAgICAgICAgICAgICAgICAgICAgIC AgICAgICAgICAgICAgDQogICAgICAgICAgICAgICAg ICAgICAgICAgICAgICAgICAgICAgICAgICAgICAgICAgICAgICAgICAgICAgICAgICAgICAgICAgICAg ICAgICAgICAgICAgICAgICAgICAgICAgDQogICAgICAgICAgICAgICAgICAgICAgICAgICAgICAgICAg ICAgICAgICAgICAgICAgICAgICAgICAgICAgICAgIC AgICAgICAgICAgICAgICAgICAgICAgICAgICAgICAgICAgDQogICAgICAgICAgICAgICAgICAgICAgIC AgICAgICAgICAgICAgICAgICAgICAgICAgICAgICAgICAgICAgICAgICAgICAgICAgICAgICAgICAgIC AgICAgICAgICAgICAgICAgDQogICAgICAgICAgICAg ICAgICAgICAgICAgICAgICAgICAgICAgICAgICAgICAgICAgICAgICAgICAgICAgICAgICAgICAgICAg ICAgICAgICAgICAgICAgICAgICAgICAgICAgDQogICAgICAgICAgICAgICAgICAgICAgICAgICAgICAg ICAgICAgICAgICAgICAgICAgICAgICAgICAgICAgIC AgICAgICAgICAgICAgICAgICAgICAgICAgICAgICAgICAgICAgDQogICAgICAgICAgICAgICAgICAgIC AgICAgICAgICAgICAgICAgICAgICAgICAgICAgICAgICAgICAgICAgICAgICAgICAgICAgICAgICAgIC AgICAgICAgICAgICAgICAgICAgDQogICAgICAgICAg ICAgICAgICAgICAgICAgICAgICAgICAgICAgICAgICAgICAgICAgICAgICAgICAgICAgICAgICAgICAg GULzUZRmYRViBPKeZKIiAMXpPLMkUPFnHDQsHQSpFYy3B5wfRXZcFJPrUR1xKEl2Gj5+DQoNCmVuZHN0 ksEufW2WQB1ss3ZsXJzpCYEbq7MlNKl7WO6UUSAsAD ijRO6TQEulpm1LFBZmNFEkfPOSt1bsAgGxXFD0USJuYgowWS3SYHAkF7gasbJhPCFrJHPMAQjbFAIXAI yvSKGNNHUxIXBpUgNjYgGuFRUnIE9FLMZkA874ekNsVP7MRi3JGcXdOJ3cdy7WDbMtLGSpRebRJuo6UV mtVP6CyBOpnHIcSRCvOPZTEaXvD3gdc8TnStBaDWFW VElqBJ3Zw5IwsTWeRWk+Sy9SRO9eu1SjYPigEDDwJR1ovo0UZPvBIiDtJ8NcuXaoXAtqTKWbwSLToZBm rP1gA9vupomeHMZsJMKpDb6rJF6tTXCzNBCaPiWpEHHJIY2UYWQdHFMkmGEsTPSmDXSDHF0FCSlcDHE8 EZPjiyVjlANtFCwhOQ5TNTUenfMnLfUeNXIISXn+Pg 3BHV8dp5NhZDguFIDdRF3jeq6UAPcSOoRoW8Q0nCMxB1V9IJdhXp0HRRTvYTRjLqHqLWGSGDlpER1TKA 9dvwX7JW4JgFJzQIMgWSLwrHWzHSm6V64zeWLtIUmzIU9EKIB+Gayla+Pd8MQUSdJAPvZACfYzAkEZPPRz FtD7DvA0AXf1SmR1LfIO38iMjuzxFeJRgwGD5PJE2e TRApXXQBOQ7XzKFebH9kniObNzJqRNPZLeFmI07mtEZbBMHfOZDnMEGtNb3UNODqG6XtvrLvcRpkpdGs WTQwEKTEZC3YCBqisoEmjYLbuSunSA58iBpzRI9NXc7MXeGqLC2hbz3QkPMhLx1CNTHvVg7TVFLzDGGm IUEvHBS3PIEbZtQbNJalRHNeZQGoZNA7ARFbABWwDT 5ZOmLpAXJlFdK5RtSrFLMcVUMozw5SYIFuSXGrIUL0YdOlLHYbTPYyFDatJMQkSBNcNPG1SOAxGHUwZU 3GYfSaYHDrLXRwDTAmSAPjCTJwcd2PKCOhXRXuQaUoVFCqCPFwZFXfHQagRRQmGST4JHQ3JALeHIObSN 0BPmTkUBQjDBJfSUFzLUCmIOWcxa9YVOUnIIDsAHr9 YHDxWOJrTAXvNOqbHUGgVJH7MJIfKOKwDXJnFE2YQuIqBEFcQHTvRHIlCRKrICEnyt7AWNJhXJRkUhCh RgSaEJFeKBEyIArgTENqAPQ1BGypPJNyMLZkEC4OJdRlUSByJTCyULffNALdBSKlms0NJTTxTRPfMeU3 CTPzEUDeONCpEXwwLSSlLGG4MQX5JAJtXTKvNH9GPu YlXPQzCFN4BlvfFTSyXSBrjd2JRPTpBAEkYzX3ScSoTHNxBQOnHQrbECDmHJE6She5ZMNoGNPdXM6SRg BdUBJnBOe3WuvuEEMgCBSuxo5LQHShZQBoZJL9SxEqVNRiIXDuHSsxHVCrKJE3XnysUNQkAJNxJG1XWj EgDXDlXqp0LKhpSGKjKNWhdl9UMGXhDJJsOGQlYBCy TMTvVMSbCCbjUFWiGZCpZvq6JHQcWROdCC8YLbUmPPRuBbFwUBxfTWIvDOQjeq7XHKHrLOMrHWRfCnRb QOWfNTXxTNqeTGUfBQJhVRr0FDKtKFIcHF8GPmItNAWbFrR7TpljQGRcURStlz4IWPWzUSUrDbieBKOl VYGhIXYsNSwvKAHaEWItAZIkXDMnIRMjUK1HSyEnAI TvMpWcYaRzXQFdVKTvsq1SWMHtEQLgRZptOFXzWSAcPAKdRUiyZIVtJRT5PBezWNVlOLLqZR7VGfPhSF VjLvKyNBSwEEPfQNYwmd2BvZRylHngcl6MNGdSVf6FiDzrVOG2AQnuFo0vlYZgWYKhGAJGKj4BamYjVT YgQUDLHVjiMHGlSKV5EwTrHmI6VJQrSXUgNFI6ZCJq CCNeHDZ2PRAwDmN0HmW8VFj9OCOcADOdOvO1OnS9EKrkHXIbRFWdOwe2KOCjUMI+RJ4qERg+Ra3Nk4Yp voP6cwFsPCsfZCU0YQ7NKYEVX5ARYv== ID Date Data Source [id number] 11/06/2020 12:10:00 AM EDT [facility] Name Value Range Interpretation Code Description Data Tina rce(s) Supporting Document(s) SARS coronavirus 2 RNA [Presence] in Res piratory specimen by NIYAH with probe detection NEGATIVE [facility] This lab was ordered by [facility] a nd reported by [facility]. Procedure Social History Code Duration Value Status Description Data Source(s ) Alcohol intake 11/06/2020 12:00:00 AM EDT Lifetime non-drinker (finding) completed Lifetime non-drinker (finding) [facility] Tobacco use and exposure 11/06/2020 12:00:00 AM EDT Never used co mpleted Never used [facility] Smoking 11/06/2020 12:00:00 AM EDT Never smoker completed Never s moker [facility] Vital Signs ID Date Data Source UNK Name Value Range Interpretation Code Description Data Source(s) Systolic blood pressure 118 mm[Hg] 118 mm[Hg] M [facility] ([facility]) Diastolic blood pressure 84 mm[Hg] 84 mm[Hg] [facility] ([facility]) Heart rate 95 /min 95 /min [facility] ([facility]) Body temperature 97.2 [degF] 97.2 [degF] [facility] ([facility]) Respiratory rate 16 /min 16 /min [facility] ( [facility]) Oxygen saturation in Arterial blood by Pulse oximetry 98 % 98 % [facility] ([facility]) Body weight 208.38 [lb_av] 208.38 [lb_av] MED[facility] T ([facility]) Body weight 94.519 kg 94.519 kg [facility] ([facility]) Body height 63 [in_i] 63 [in_i] [facility] ([facility]) 5'3" Body height [Percentile] 31 % 31 % [facility] ([facility]) Body mass index (BMI) [Ratio] 36.9 kg/m2 36.9 k g/m2 [facility] ([facility]) Body mass index (BMI) [Percentile] 98 % 9 8 % [facility] Body surface area Derived from formula 1.97 m2 1.97 m2 [facility] ([facility]) Body height [Percentile] 31 % 31 % [facility] ([facility]) Heart rate 73 /min 73 /min [facility] ([facility]) Body temperature 98.1 [degF] 98.1 [degF] [facility] ([facility]) Oral Body weight 214.00 [lb_av] 214.00 [lb_av] [facility] T ([facility]) Body weight 97.070 kg 97.070 kg [facility] ([facility]) Body mass index (BMI) [Percentile] 98 % 9 8 % [facility] ([facility]) Body surface area Derived from formula 1.99 m2 1.99 m2 [facility] ([facility]) Systolic blood pressure--sitting 120 mm[Hg] 120 mm[Hg] [facility] ([facility]) Diastolic blood pressure--sitting 71 mm[Hg] 71 mm[Hg] [facility] ([facility]) Respiratory rate 16 /min 16 /min [facility] ( [facility]) Oxygen saturation in Arterial blood by Pulse oximetry 99 % 99 % [facility] ([facility]) Body height 63 [in_i] 63 [facility] 5'3" Body mass index (BMI) [Ratio] 37.9 kg/m2 37.9 k g/m2 [facility] Body weight 98.034 kg 98.034 kg [facility] ([facility]) Body mass index (BMI) [Ratio] 38.3 kg/m2 38.3 k g/m2 [facility] ([facility]) Systolic blood pressure 110 mm[Hg] 110 mm[Hg] M [facility]ENT ([facility]) Diastolic blood pressure 70 mm[Hg] 70 mm[Hg] [facility] ([facility]) Heart rate 72 /min 72 /[facility] Body temperature 97.3 [degF] 97.3 [degF] [facility] ([facility]) Respiratory rate 16 /min 16 /min [facility] ( [facility]) Oxygen saturation in Arterial blood by Pulse oximetry 98 % 98 % [facility] ([facility]) Body weight 216.12 [lb_av] 216.12 [lb_av] [facility] T ([facility]) Body height 63 [in_i] 63 [in_i] [facility] ([facility]) 5'3" Body height [Percentile] 31 % 31 % [facility] ([facility]) Body mass index (BMI) [Percentile] 98 % 9 8 % [facility] ([facility]) Body surface area Derived from formula 2.00 m2 2.00 m2 [facility] ([facility]) Heart rate 74 /min 74 /min [facility] ([facility]) Respiratory rate 18 /min 18 /min [facility] ( [facility]) Systolic blood pressure 124 mm[Hg] 124 mm[Hg] M [facility] ([facility]) Diastolic blood pressure 82 mm[Hg] 82 mm[Hg] [facility] ([facility]) Body height 63 [in_i] 63 [in_i] [facility] ([facility]) 5'3" Body height [Percentile] 31 % 31 % [facility] ([facility]) Body mass index (BMI) [Ratio] 38.4 kg/m2 38.4 k g/m2 [facility] ([facility]) Body temperature 97.9 [degF] 97.9 [degF] [facility] ([facility]) Oxygen saturation in Arterial blood by Pulse oximetry 98 % 98 % [facility] ([facility]) Body weight 217.00 [lb_av] 217.00 [lb_av] [facility] T ([facility]) Body weight 98.431 kg 98.431 kg [facility] ([facility]) Body mass index (BMI) [Percentile] 98 % 9 8 % [facility] ([facility]) Body surface area Derived from formula 2.00 m2 2.00 m2 [facility] ([facility]) Systolic blood pressure 132 mm[Hg] 132 mm[Hg] M [facility] ([facility] Diastolic blood pressure 84 mm[Hg] 84 mm[Hg] [facility] ([facility] Heart rate 100 /min 100 /min [facility] ([facility] Body mass index (BMI) [Ratio] 38.4 kg/m2 38.4 k g/m2 [facility] ([facility] Body height 63 [in_i] 63 [in_i] [facility] ([facility] 5'3" Body weight 217.00 [lb_av] 217.00 [lb_av] [facility] T ([facility] Body height 63 [in_i] 63 [in_i] [facility] 5'3" Body mass index (BMI) [Ratio] 38.5 kg/m2 38.5 k g/m2 [facility] ([facility]) Body mass index (BMI) [Percentile] 98 % 9 8 % [facility] ([facility]) Systolic blood pressure 132 mm[Hg] 132 mm[Hg] M [facility] ([facility]) Diastolic blood pressure 84 mm[Hg] 84 mm[Hg] [facility] ([facility]) Heart rate 100 /min 100 /min [facility] ([facility]) Body surface area Derived from formula 2.00 m2 2.00 m2 [facility] ([facility]) Body temperature 98.2 [degF] 98.2 [degF] [facility] ([facility]) Respiratory rate 18 /min 18 /min [facility] ( [facility]) Oxygen saturation in Arterial blood by Pulse oximetry 99 % 99 % [facility] ([facility]) Body weight 217.38 [lb_av] 217.38 [lb_av] [facility] T ([facility]) Body weight 98.601 kg 98.601 kg [facility] ([facility]) Body height [Percentile] 31 % 31 % [facility] ([facility]) ID Date Data Source [id number] 11/19/2020 08:34:58 AM [facility] Name Value Range Interpretation Code Description Data Source(s) WEIGHT RECORDED 210.6 lb 210.6 lb [facility] Body height Measured 63 in 63 in [facility] TRANSFER FROM [facility] Patient Treatment Plan of Care Planned Activity Planned Date Details Description Data Source (s) 24 HR Bupropion Hydrochloride 150 MG Extended Release Oral Tablet 11/11/2020 09:00:00 AM [facility] 24 HR Bupropion Hydrochloride 150 MG Extended Release Oral Tablet 11/11/2020 12:00:00 AM [facility] Escitalopram 10 MG Oral Tablet 11/10/2020 12:00:[address] [facility] Prazosin 2 MG Oral Capsule 11/10/2020 12:00:[address] [facility] acetaminophen (TYLENOL) tablet 650 mg 11/06/2020 05:50:[address] [facility] Magnesium Hydroxide 80 MG/ML Oral Suspension 11/06/2020 05:50:[address] [facility] Aluminum Hydroxide 40 MG/ML / Magnesium Hydroxide 40 MG/ML / Simethicone 4 MG/ML Oral Suspension 11/06/2020 05:50:39 AM [facility] Ondansetron 4 MG Disintegrating Oral Tablet 11/06/2020 05:50:[address] [facility] Nicotine 2 MG Oral Lozenge 11/06/2020 05:50:[address] [facility] Haloperidol 5 MG Oral Tablet 11/06/2020 05:50:[address] [facility] Escitalopram 10 MG Oral Tablet [facility] Ranitidine 150 MG Oral Tablet [facility]
[2021-03-26 16:02] LABS: BASO # 0.1 10^3/uL (0.0-0.2); BASO % 0.7 % (0.0-1.0); EOS # 0.1 10^3/uL (0.0-0.5); EOS % 1.2 % (0.0-3.0); HEMOGLOBIN 14.3 g/dl (12.0-15.5); LYMPH # 1.9 10^3/uL (1.5-5.0); LYMPH % 26.1 % (24.0-44.0); MEAN CORPUSCULAR HEMOGLOBIN 27.1 pg (27.0-33.0); MEAN CORPUSCULAR HGB CONC 31.8 g/dl (32.0-36.5); MEAN CORPUSCULAR VOLUME 85.4 fl (80.0-96.0); MONO # 0.7 10^3/uL (0.0-0.8); MONO % 9.4 % (2.0-8.0); NEUTROPHILS # 4.5 10^3/uL (1.5-8.5); NEUTROPHILS % 62.5 % (36.0-66.0); PLATELET COUNT, AUTOMATED 252 10^3/uL (150-450); RED BLOOD COUNT 5.27 10^6/uL (4.00-5.40); WHITE BLOOD COUNT 7.2 10^3/uL (4.0-10.0)
[2021-03-26 16:42] LABS: ALBUMIN 3.7 GM/DL (3.2-5.2); ALT/SGPT 25 U/L (12-78); BILIRUBIN,TOTAL 0.4 MG/DL (0.2-1.0); LIPASE 21 U/L (73-393); TOTAL PROTEIN 7.8 GM/DL (6.4-8.2)
[2021-03-26 16:43] LABS: BILIRUBIN,DIRECT < 0.1 MG/DL (0.0-0.2)
[2021-03-26] MEDS ORDERED: ISOVUE-370 76% 100ML VIAL As Ordered ONE (17:00)
--- NOTE | 2021-03-26 18:05 | REPVR ---
PROCEDURE INFORMATION: Exam: CT Abdomen And Pelvis With Contrast Exam date and time: 03/26/2021 5:06 PM Age: 20 years old Clinical indication: Abdominal pain; Additional info: Upper abd pain, biliary vomiting, hematemesis TECHNIQUE: Imaging protocol: Computed tomography of the abdomen and pelvis with contrast. Axial, coronal and sagittal reformatted images were created and reviewed. Radiation optimization: All CT scans at this facility use at least one of these dose optimization techniques: automated exposure control; mA and/or kV adjustment per patient size (includes targeted exams where dose is matched to clinical indication); or iterative reconstruction. Contrast material: ISOVUE 370; Contrast volume: 100 ml; Contrast route: INTRAVENOUS (IV); COMPARISON: CT ABD/PEL W/IV CONTRAST ONLY 03/17/2021 11:00 PM FINDINGS: Diaphragm: Small hiatal hernia. Liver: Unremarkable. Gallbladder and bile ducts: Status post cholecystectomy. No biliary ductal dilatation. Pancreas: Unremarkable. Spleen: Unremarkable. Adrenal glands: Normal. No mass. Kidneys and ureters: No mass. No radiodense calculi. No hydronephrosis. Stomach and bowel: No bowel wall thickening. No obstruction. No pneumatosis. Appendix: Normal. Intraperitoneal space: No free fluid. No organized fluid collection. No free air. Vasculature: Unremarkable. No aneurysm. Lymph nodes: Small mesenteric lymph nodes, nonspecific in appearance. No pathologically enlarged lymph nodes. Urinary bladder: Unremarkable as visualized. Reproductive: Unremarkable. Bones/joints: No acute osseous abnormality. Soft tissues: Tiny, fat containing umbilical hernia. IMPRESSION: 1. No CT evidence of acute intra-abdominal or pelvic pathology. 2. Additional findings, as above. Electronically signed by: Kenji Reyes On 03/26/2021 18:04:38 PM
[2021-03-26] MEDS ORDERED: CARA1TAB6 PO (18:49)
[2021-03-26] MEDS ORDERED: OMEP40CA4 PO (18:58)
[2021-03-26 19:10] VITALS: BP 128/72
== END 2021-03-26 19:11 | disposition home or self-care (01) ==
LOC: M ED 12:10
DX: K92.0 Hematemesis (principal); K21.9 Gastro-esophageal reflux disease without esophagitis; K29.70 Gastritis, unspecified, without bleeding; R10.13 Epigastric pain; F41.9 Anxiety disorder, unspecified; F31.89 Other bipolar disorder; Z79.899 Other long term (current) drug therapy
CPT/HCPCS: 74177; 80047; 80076; 81001; 83690; 84702; 85025; 99284; Q9967

== ENCOUNTER → 2021-05-01 | Outpatient (REF) ==
[~2021-05-01] MED LIST changes: +CARA1TAB6 PO; +OMEP-221; +OMEP40CA4 PO
== END ==
LOC: M EMP 11:59
PROVIDERS: ATTEND Family Medicine
DX: Z11.52 Encounter for screening for COVID-19 (principal)

== ENCOUNTER → 2021-05-04 | Outpatient (REF) | LOC: M LABSMTC 10:38 | PROVIDERS: ATTEND Pediatrics | DX: Z11.52 Encounter for screening for COVID-19 (principal) ==

== ENCOUNTER → 2021-05-09 | Outpatient (REF) | LOC: M LABSMTC 10:28 | PROVIDERS: ATTEND Pediatrics | DX: Z11.52 Encounter for screening for COVID-19 (principal) ==

== ENCOUNTER → 2021-07-13 | Outpatient (REF) ==
[~2021-07-13] MED LIST changes: -OMEP-221; +OMEP40CA5
== END ==
LOC: M LABSMTC 12:24
PROVIDERS: ATTEND Family Medicine
DX: Z11.52 Encounter for screening for COVID-19 (principal)

== ENCOUNTER 2023-04-19 14:28 | Emergency (ER) | payer MEDICAID, OTHER ==
[2023-04-19 15:52] VITALS: BP 130/84; TEMP 99.7; O2SAT 96
== END 2023-04-19 16:05 | disposition home or self-care (01) ==
LOC: M ED 14:28 → EDBD 14:28 → M ED 16:05
DX: S93.402A Sprain of unspecified ligament of left ankle, initial encounter (principal); W01.0XXA Fall on same level from slipping, tripping and stumbling without subsequent striking against object, initial encounter; Y92.9 Unspecified place or not applicable

== ENCOUNTER 2023-07-28 11:24 | Emergency (ER) | payer MEDICAID, SELFPAY ==
[~2023-07-28] VITALS: Ht 160 cm; Wt 102.5 kg
[2023-07-28] MEDS ORDERED: ETON68IM SC (11:31)
[2023-07-28 12:25] LABS: BASO % 0.7 % (0.0-1.0); EOS # 0.1 10^3/uL (0.0-0.5); HEMATOCRIT 46.6 % (36.0-47.0); HEMOGLOBIN 15.5 g/dl (12.0-15.5); LYMPH # 1.1 10^3/uL (1.5-5.0); MEAN CORPUSCULAR HGB CONC 33.3 g/dl (32.0-36.5); MEAN CORPUSCULAR VOLUME 84.3 fl (80.0-96.0); MONO # 0.8 10^3/uL (0.0-0.8); MONO % 12.5 % (2.0-8.0); NEUTROPHILS % 66.1 % (36.0-66.0); PLATELET COUNT, AUTOMATED 274 10^3/uL (150-450); RED BLOOD COUNT 5.53 10^6/uL (4.00-5.40); WHITE BLOOD COUNT 6.1 10^3/uL (4.0-10.0)
[2023-07-28 12:39] LABS: LIPASE 23 U/L (12-53)
[2023-07-28 12:41] LABS: ALBUMIN 3.9 G/DL (3.2-5.2); ALKALINE PHOSPHATASE 110 U/L (46-116); ALT/SGPT 46 U/L (7.0-40); AST/SGOT 28 U/L (<34); BILIRUBIN,DIRECT 0.2 MG/DL (<0.4); BILIRUBIN,TOTAL 0.5 MG/DL (0.3-1.2); BLOOD UREA NITROGEN 14 MG/DL (9-23); CALCIUM LEVEL 8.7 MG/DL (8.5-10.1); CARBON DIOXIDE LEVEL 26 MMOL/L (20-31); CHLORIDE LEVEL 104 MMOL/L (98-107); CREATININE FOR GFR 0.57 MG/DL (0.55-1.30); GLOMERULAR FILTRATION RATE > 60.0 (>60); GLUCOSE, FASTING 96 MG/DL (60-100); POTASSIUM SERUM 3.9 MMOL/L (3.5-5.1); SODIUM LEVEL 136 MMOL/L (136-145); TOTAL PROTEIN 7.3 G/DL (5.7-8.2)
[2023-07-28 12:42] LABS: HCG, SERUM QUALITATIVE NEGATIVE (NEGATIVE)
[2023-07-28] MEDS: ONDANSETRON 4MG 2ML VIAL IV ONE (14:47)
[2023-07-28] MEDS: KETOROLAC 30 MG/ML 1ML VIAL IV ONE (14:47)
[2023-07-28] MEDS: NS 1,000 ML IV ONE (14:47)
[2023-07-28] MEDS ORDERED: TUMS750C5 PO (15:17)
[2023-07-28] MEDS ORDERED: ACET500P3 PO (15:17)
[2023-07-28] MEDS ORDERED: HOME MED LIST COMPLETE! XX SCH ×2 (15:20→15:30)
[2023-07-28] MEDS ORDERED: ONDA4TAB6 PO (16:06)
[2023-07-28 16:14] VITALS: BP 132/86; TEMP 99.3; O2SAT 100
== END 2023-07-28 16:35 | disposition home or self-care (01) ==
LOC: M ED 11:24
DX: A08.39 Other viral enteritis (principal); F17.210 Nicotine dependence, cigarettes, uncomplicated; F12.10 Cannabis abuse, uncomplicated; F10.10 Alcohol abuse, uncomplicated; Z79.1 Long term (current) use of non-steroidal anti-inflammatories (NSAID); Z79.899 Other long term (current) drug therapy
CPT/HCPCS: 80048; 80076; 81001; 83690; 84443; 84703; 85025; 87086; 87507; 96361; 96374; 99284; J1885; J2405

== ENCOUNTER 2023-09-08 18:25 | Emergency (ER) | payer OTHER, SELFPAY ==
[~2023-09-08] VITALS: Ht 160 cm; Wt 103.2 kg
[~2023-09-08 18:25] MED LIST changes: +ACET500P3 PO; +ETON68IM SC; +ONDA4TAB6 PO; +TUMS750C5 PO
[2023-09-08 18:26] VITALS: TEMP 98.6; O2SAT 97
[2023-09-08 20:14] LABS: BASO # 0.1 10^3/uL (0.0-0.2); BASO % 0.7 % (0.0-1.0); EOS # 0.2 10^3/uL (0.0-0.5); EOS % 1.5 % (0.0-3.0); HEMATOCRIT 42.5 % (36.0-47.0); HEMOGLOBIN 14.4 g/dl (12.0-15.5); LYMPH # 2.9 10^3/uL (1.5-5.0); LYMPH % 29.6 % (24.0-44.0); MEAN CORPUSCULAR HEMOGLOBIN 28.9 pg (27.0-33.0); MEAN CORPUSCULAR HGB CONC 33.9 g/dl (32.0-36.5); MEAN CORPUSCULAR VOLUME 85.3 fl (80.0-96.0); MONO # 0.9 10^3/uL (0.0-0.8); MONO % 8.7 % (2.0-8.0); NEUTROPHILS # 5.9 10^3/uL (1.5-8.5); NEUTROPHILS % 59.2 % (36.0-66.0); PLATELET COUNT, AUTOMATED 282 10^3/uL (150-450); RED BLOOD COUNT 4.98 10^6/uL (4.00-5.40); WHITE BLOOD COUNT 9.9 10^3/uL (4.0-10.0)
[2023-09-08 20:48] LABS: BLOOD UREA NITROGEN 8 MG/DL (9-23); CALCIUM LEVEL 8.8 MG/DL (8.5-10.1); CARBON DIOXIDE LEVEL 26 MMOL/L (20-31); CHLORIDE LEVEL 107 MMOL/L (98-107); CREATININE FOR GFR 0.59 MG/DL (0.55-1.30); GLOMERULAR FILTRATION RATE > 60.0 (>60); GLUCOSE, FASTING 79 MG/DL (60-100); HCG, SERUM QUANTITATIVE < 2.6 MIU/ML (<4.2); POTASSIUM SERUM 3.9 MMOL/L (3.5-5.1); SODIUM LEVEL 142 MMOL/L (136-145)
[2023-09-08 22:27] VITALS: BP 170/82
== END 2023-09-08 22:44 | disposition home or self-care (01) ==
LOC: M ED 18:25
DX: N93.9 Abnormal uterine and vaginal bleeding, unspecified (principal); K80.20 Calculus of gallbladder without cholecystitis without obstruction; F17.210 Nicotine dependence, cigarettes, uncomplicated; F10.10 Alcohol abuse, uncomplicated; Z79.1 Long term (current) use of non-steroidal anti-inflammatories (NSAID)

== ENCOUNTER 2023-10-10 15:41 | Emergency (ER) | payer OTHER, SELFPAY ==
[~2023-10-10] VITALS: Ht 160 cm; Wt 99.2 kg
[2023-10-10 15:42] VITALS: BP 160/84; TEMP 97.9; O2SAT 97
[2023-10-10] MEDS ORDERED: IBUP200C25 PO (15:47)
[2023-10-10] MEDS ORDERED: IBUP-1022 PO (18:37)
== END 2023-10-10 18:48 | disposition home or self-care (01) ==
LOC: M ED 15:41
DX: S93.402A Sprain of unspecified ligament of left ankle, initial encounter (principal); Y92.410 Unspecified street and highway as the place of occurrence of the external cause; Y93.9 Activity, unspecified; Y99.9 Unspecified external cause status; Z79.1 Long term (current) use of non-steroidal anti-inflammatories (NSAID)

== ENCOUNTER 2023-12-11 02:35 | Inpatient (IN) | payer MEDICAID, OTHER ==
[~2023-12-11] VITALS: Ht 160 cm; Wt 100.0 kg
[~2023-12-11 02:35] MED LIST changes: +IBUP-1022 PO; +IBUP200C25 PO; +ONDA-282 PO; -ONDA4TAB6 PO
[2023-12-11 03:35] LABS: HEMATOCRIT 44.6 % (36.0-47.0); HEMOGLOBIN 15.3 g/dl (12.0-15.5); MEAN CORPUSCULAR HEMOGLOBIN 28.4 pg (27.0-33.0); MEAN CORPUSCULAR HGB CONC 34.3 g/dl (32.0-36.5); MEAN CORPUSCULAR VOLUME 82.9 fl (80.0-96.0); PLATELET COUNT, AUTOMATED 332 10^3/uL (150-450); RED BLOOD COUNT 5.38 10^6/uL (4.00-5.40); WHITE BLOOD COUNT 7.7 10^3/uL (4.0-10.0)
[2023-12-11 03:58] LABS: ETHYL ALCOHOL (ETHANOL) 0.111 % (0.000-0.010)
[2023-12-11 03:59] LABS: SALICYLATE LEVEL < 3.0 MG/DL (<30)
[2023-12-11 04:00] LABS: ALBUMIN 4.2 G/DL (3.2-5.2); ALKALINE PHOSPHATASE 107 U/L (46-116); ALT/SGPT 39 U/L (7.0-40); AST/SGOT 27 U/L (<34); BILIRUBIN,DIRECT < 0.1 MG/DL (<0.4); BILIRUBIN,TOTAL 0.3 MG/DL (0.3-1.2); BLOOD UREA NITROGEN 5 MG/DL (9-23); CALCIUM LEVEL 9.2 MG/DL (8.5-10.1); CARBON DIOXIDE LEVEL 24 MMOL/L (20-31); CHLORIDE LEVEL 109 MMOL/L (98-107); CREATININE FOR GFR 0.55 MG/DL (0.55-1.30); GLOMERULAR FILTRATION RATE > 60.0 (>60); GLUCOSE, FASTING 116 MG/DL (60-100); POTASSIUM SERUM 3.9 MMOL/L (3.5-5.1); SODIUM LEVEL 142 MMOL/L (136-145); TOTAL PROTEIN 7.6 G/DL (5.7-8.2)
[2023-12-11 04:01] LABS: THYROID STIMULATING HORMONE 0.682 uIU/ML (0.55-4.78)
[2023-12-11] MEDS: hydrOXYzine 50 MG TAB PO STA (04:01)
[2023-12-11 04:11] LABS: AMPHETAMINES LEVEL URINE NEGATIVE (NEGATIVE)
[2023-12-11 04:12] LABS: BARBITURATES URINE NEGATIVE (NEGATIVE); BENZODIAZEPINES URINE NEGATIVE (NEGATIVE); CANNABINOIDS URINE NEGATIVE (NEGATIVE); COCAINE METABOLITE URINE NEGATIVE (NEGATIVE); METHADONE URINE NEGATIVE (NEGATIVE); OPIATES URINE NEGATIVE (NEGATIVE); PHENCYCLIDINE URINE NEGATIVE (NEGATIVE)
[2023-12-11] MEDS ORDERED: PRAZ1CAP PO (09:09)
[2023-12-11] MEDS ORDERED: LAMO25TA4 PO (09:09)
[2023-12-11] MEDS ORDERED: HYDR-643 PO (09:09)
[2023-12-11] MEDS ORDERED: escitalopram (09:09)
[2023-12-12] MEDS ORDERED: LEXA5TAB13 PO (09:47)
[2023-12-12] MEDS ORDERED: MIDOTAB PO (09:49)
[2023-12-12] MEDS ORDERED: HOME MED LIST COMPLETE! XX SCH (09:55)
[2023-12-12] MEDS: ESCITALOPRAM OXALATE 5MG TABLET (LEXAPRO) PO SCH (12:40)
[2023-12-12] MEDS: lamoTRIgine 25MG TAB PO SCH (12:40)
[2023-12-12] MEDS: PRAZOSIN 1 MG CAP PO SCH (21:11)
[2023-12-13] MEDS: FOLIC ACID 1MG TAB PO SCH (09:00)
[2023-12-13] MEDS: THIAMINE 100 MG TAB PO SCH (09:00)
[2023-12-13] MEDS: MULTIVITAMINS/MINERALS THERAP 1 TAB PO SCH (09:00)
[2023-12-13] MEDS: NICOTINE 21MG/24HR 1 EA TRANSDERMAL TD SCH (09:00)
[2023-12-13] MEDS ORDERED: LORazepam 2 MG TAB PO PRN (12:30)
[2023-12-13] MEDS ORDERED: MAALOX 30 ML SUSP *UDC PO PRN (12:30)
[2023-12-13] MEDS ORDERED: MOM 30ML SUSPENSION UDC PO PRN (12:30)
[2023-12-13] MEDS ORDERED: ACETAMINOPHEN TAB 650MG DOSE (2X325MG) PO PRN (12:30)
[2023-12-13 14:00] VITALS: BP 141/89
[2023-12-13 14:03] VITALS: BP 142/84; TEMP 98.2
[2023-12-13 18:43] VITALS: BP 134/77; TEMP 99; O2SAT 96
[2023-12-14 06:00] VITALS: BP 152/86
[2023-12-14 06:33] VITALS: BP 152/87; TEMP 99; O2SAT 97
[2023-12-14] MEDS ORDERED: LORazepam 2 MG TAB PO PRN (09:35)
[2023-12-14] MEDS: lamoTRIgine 25MG TAB PO SCH (09:46)
[2023-12-14] MEDS: THIAMINE 100 MG TAB PO SCH (09:46)
[2023-12-14] MEDS: ESCITALOPRAM OXALATE 5MG TABLET (LEXAPRO) PO SCH (09:46)
[2023-12-14] MEDS: FOLIC ACID 1MG TAB PO SCH (09:46)
[2023-12-14] MEDS: MULTIVITAMINS/MINERALS THERAP 1 TAB PO SCH (09:47)
[2023-12-14 11:56] VITALS: BP 142/82
[2023-12-14 17:32] VITALS: BP 130/58; TEMP 97.4
[2023-12-14 20:00] VITALS: BP 134/76
[2023-12-14] MEDS: PRAZOSIN 1 MG CAP PO SCH (20:08)
[2023-12-15 06:40] VITALS: BP 138/62; TEMP 98.8; O2SAT 99
[2023-12-15 07:05] LABS: CHOLESTEROL RISK RATIO 2.39 (<5); HDL CHOLESTEROL 48.8 MG/DL (>40); LDL CHOLESTEROL 53.4 MG/DL (<100); NON-HDL-C 68.2 MG/DL
[2023-12-15 08:31] VITALS: BP 136/87
[2023-12-15 14:06] VITALS: BP 134/76
[2023-12-15 18:50] VITALS: BP 130/80; TEMP 99.3; O2SAT 97
[2023-12-15] MEDS: traZODone 50 MG TAB PO PRN (23:50)
[2023-12-16] MEDS ORDERED: lamoTRIgine 25MG TAB As Ordered ONE (08:52)
[2023-12-16] MEDS ORDERED: FOLIC ACID 1MG TAB As Ordered ONE (08:52)
[2023-12-16] MEDS ORDERED: ESCITALOPRAM OXALATE 5MG TABLET (LEXAPRO) As Ordered ONE (08:52)
[2023-12-16] MEDS ORDERED: NICOTINE 21MG/24HR 1 EA TRANSDERMAL As Ordered ONE (08:52)
[2023-12-16] MEDS ORDERED: MULTIVITAMINS/MINERALS THERAP 1 TAB As Ordered ONE (08:52)
[2023-12-16 17:11] VITALS: BP 120/72; TEMP 98.1; O2SAT 97
[2023-12-17 06:26] VITALS: BP 142/97; TEMP 98.9; O2SAT 97
[2023-12-17] MEDS: CEPACOL LOZENGE PO PRN (14:00)
[2023-12-17 16:58] VITALS: BP 134/70; TEMP 99; O2SAT 99
[2023-12-17] MEDS: traZODone 25MG PER 1/2 TABLET PO PRN (20:50)
[2023-12-18 06:16] VITALS: BP 126/68; TEMP 97.9; O2SAT 100
[2023-12-18] MEDS ORDERED: PRAZ1CAP PO (08:26)
[2023-12-18] MEDS ORDERED: LAMI25TA PO (08:26)
[2023-12-18] MEDS ORDERED: LEXA5TAB13 PO (08:26)
[2023-12-18] MEDS ORDERED: NICO21PAT TD (08:26)
[2023-12-18] MEDS ORDERED: ABIL1TAB11 PO (08:26)
[2023-12-18] MEDS ORDERED: TRAZ-252 PO (08:26)
[2023-12-18] MEDS: IBUPROFEN 400MG TAB PO PRN (09:33)
[2023-12-18] MEDS: diphenhydrAMINE 25MG CAP PO PRN (11:03)
[2023-12-18 17:36] VITALS: BP 145/83; TEMP 98.1; O2SAT 97
[2023-12-18 20:43] VITALS: BP 132/87
[2023-12-18 20:44] VITALS: BP 132/87
[2023-12-19 06:00] VITALS: BP 122/74; TEMP 98; O2SAT 97
== END 2023-12-19 11:21 | disposition home or self-care (01) | DRG 753 ==
LOC: M ED 02:35 → EDBD 02:35 → M ED INP 12-13 12:30 → M PSY 12-13 14:32
PROVIDERS: ADMIT Student in an Organized Health Care Education/Training Program; ATTEND Student in an Organized Health Care Education/Training Program
DX: F31.9 Bipolar disorder, unspecified (principal); R45.851 Suicidal ideations; F60.89 Other specific personality disorders; F43.10 Post-traumatic stress disorder, unspecified; F10.20 Alcohol dependence, uncomplicated; F17.290 Nicotine dependence, other tobacco product, uncomplicated; J45.909 Unspecified asthma, uncomplicated; F42.9 Obsessive-compulsive disorder, unspecified; Z91.52 Personal history of nonsuicidal self-harm; Z81.8 Family history of other mental and behavioral disorders; Z79.899 Other long term (current) drug therapy; Z91.51 Personal history of suicidal behavior; Z63.4 Disappearance and death of family member; Z56.0 Unemployment, unspecified; Z62.810 Personal history of physical and sexual abuse in childhood

== ENCOUNTER 2024-04-14 16:46 | Emergency (ER) | payer OTHER, SELFPAY ==
[~2024-04-14] VITALS: Ht 160 cm; Wt 101.4 kg
[~2024-04-14 16:46] MED LIST changes: +ABIL1TAB11 PO; +HYDR-643 PO; +LAMI25TA PO; +LAMO25TA4 PO; +LEXA5TAB13 PO; +MIDOTAB PO; +NICO21PAT TD; +PRAZ1CAP PO; +TRAZ-252 PO; +escitalopram
[2024-04-14 16:50] VITALS: BP 133/73; TEMP 99.1; O2SAT 96
== END 2024-04-14 18:47 | disposition left against medical advice (07) ==
LOC: M ED 16:46
DX: Z53.21 Procedure and treatment not carried out due to patient leaving prior to being seen by health care provider (principal)

== ENCOUNTER 2024-06-11 13:51 | Emergency (ER) | payer OTHER ==
[~2024-06-11] VITALS: Ht 160 cm; Wt 102.3 kg
[2024-06-11] MEDS ORDERED: LEXA1TAB (14:00)
[2024-06-11] MEDS ORDERED: LAMO100T3 (14:00)
[2024-06-11 14:23] LABS: KETONE, URINE AUTO RFX NEGATIVE (NEGATIVE); LEUKOCYTE ESTERASE UR AUTO RFX NEGATIVE (NEGATIVE); NITRITE, URINE AUTO RFX NEGATIVE (NEGATIVE); RBC, URINE AUTO RFX 0 /HPF (0-3); SQUAM EPITHELIAL CELL UR AURFX 1 /HPF (0-6); WBC, URINE AUTO RFX 0 /HPF (0-3)
[2024-06-11 15:01] LABS: BASO # 0.1 10^3/uL (0.0-0.2); BASO % 0.6 % (0.0-1.0); EOS # 0.1 10^3/uL (0.0-0.5); EOS % 1.5 % (0.0-3.0); HEMATOCRIT 42.5 % (36.0-47.0); HEMOGLOBIN 14.4 g/dl (12.0-15.5); LYMPH # 2.7 10^3/uL (1.5-5.0); MEAN CORPUSCULAR HEMOGLOBIN 29.3 pg (27.0-33.0); MEAN CORPUSCULAR HGB CONC 33.9 g/dl (32.0-36.5); MEAN CORPUSCULAR VOLUME 86.4 fl (80.0-96.0); MONO # 0.6 10^3/uL (0.0-0.8); MONO % 7.3 % (2.0-8.0); NEUTROPHILS # 4.9 10^3/uL (1.5-8.5); NEUTROPHILS % 58.1 % (36.0-66.0); PLATELET COUNT, AUTOMATED 295 10^3/uL (150-450); RED BLOOD COUNT 4.92 10^6/uL (4.00-5.40); WHITE BLOOD COUNT 8.4 10^3/uL (4.0-10.0)
[2024-06-11 15:29] LABS: BLOOD UREA NITROGEN 12 MG/DL (9-23); CALCIUM LEVEL 8.7 MG/DL (8.5-10.1); CARBON DIOXIDE LEVEL 28 MMOL/L (20-31); CHLORIDE LEVEL 106 MMOL/L (98-107); CREATININE FOR GFR 0.56 MG/DL (0.55-1.30); GLOMERULAR FILTRATION RATE > 60.0 (>60); GLUCOSE, FASTING 82 MG/DL (60-100); POTASSIUM SERUM 4.1 MMOL/L (3.5-5.1); SODIUM LEVEL 142 MMOL/L (136-145)
[2024-06-11] MEDS ORDERED: METR-265 PO (17:43)
[2024-06-11 17:54] VITALS: BP 129/79; TEMP 98.4; O2SAT 99
[2024-06-11 18:51] LABS: Trichomonas vaginalis (AMP) NOT DETECTED (NEGATIVE)
[2024-06-11 19:15] LABS: GC DNA AMPLIFICATION NEGATIVE (NEGATIVE)
== END 2024-06-11 18:08 | disposition home or self-care (01) ==
LOC: M ED 13:51
DX: N76.0 Acute vaginitis (principal); F31.9 Bipolar disorder, unspecified; Z79.899 Other long term (current) drug therapy

== ENCOUNTER → 2025-01-23 | Outpatient (CLI) | payer OTHER ==
[~2025-01-23] MED LIST changes: -IBUP-1022 PO; +IBUP600T42 PO; +LAMO-18 PO; +LAMO100T3; -LAMO25TA4 PO; +LEXA1TAB; +METR-265 PO
[2025-01-23 13:27] LABS: PLATELET COUNT, AUTOMATED 254 10^3/uL (150-450)
[2025-01-23 14:34] LABS: Trichomonas vaginalis (AMP) NOT DETECTED (NEGATIVE)
[2025-01-23 14:57] LABS: GC DNA AMPLIFICATION NEGATIVE (NEGATIVE)
[2025-01-23 15:37] LABS: HIV 1&2 SCREEN NEGATIVE (NEGATIVE)
[2025-01-23 15:46] LABS: HEPATITIS C VIRUS ABY INDEX < 0.02 INDEX (<0.8)
== END ==
LOC: M PLALAB 11:05
PROVIDERS: ATTEND Obstetrics & Gynecology
DX: Z34.80 Encounter for supervision of other normal pregnancy, unspecified trimester (principal)

== ENCOUNTER 2025-02-19 21:11 | Emergency (ER) | payer OTHER ==
[~2025-02-19] VITALS: Ht 160 cm; Wt 97.7 kg
[2025-02-19 21:20] VITALS: BP 132/73; TEMP 98.3; O2SAT 98
== END 2025-02-19 23:20 | disposition left against medical advice (07) ==
LOC: M ED 21:11
DX: Z53.21 Procedure and treatment not carried out due to patient leaving prior to being seen by health care provider (principal)

== ENCOUNTER → 2025-02-19 | Outpatient (REF) | payer OTHER ==
[2025-02-19 18:47] LABS: APPEARANCE, URINE HAZY (CLEAR); BACTERIA, URINE AUTO NEGATIVE (NEGATIVE); BILIRUBIN, URINE AUTO NEGATIVE (NEGATIVE); BLOOD, URINE BLOOD NEGATIVE (NEGATIVE); GLUCOSE, URINE (UA) AUTO NEGATIVE (NEGATIVE); KETONE, URINE AUTO 2+ mg/dL (NEGATIVE); LEUKOCYTE ESTERASE, URINE AUTO 2+ (NEGATIVE); MUCUS, URINE SMALL (NEGATIVE); NITRITE, URINE AUTO NEGATIVE (NEGATIVE); PROTEIN, URINE AUTO NEGATIVE (NEGATIVE); RBC, URINE AUTO 0 /HPF (0-3); SPECIFIC GRAVITY URINE AUTO 1.018 (1.002-1.035); SQUAMOUS EPITHELIAL CELL UR AU 8 /HPF (0-6); UROBILINOGEN, URINE AUTO 0.2 mg/dL (0.0-2.0); WBC, URINE AUTO 2 /HPF (0-3)
== END ==
LOC: M SFHCWAGY 15:11
PROVIDERS: ATTEND Specialist
DX: R30.0 Dysuria (principal)

== ENCOUNTER → 2025-02-22 | Outpatient (REF) | payer OTHER ==
[2025-02-22 16:24] LABS: APPEARANCE, URINE HAZY (CLEAR); BACTERIA, URINE AUTO 1+ (NEGATIVE); BILIRUBIN, URINE AUTO NEGATIVE (NEGATIVE); BLOOD, URINE BLOOD NEGATIVE (NEGATIVE); CALCIUM OXALATE CRYSTALS SMALL; GLUCOSE, URINE (UA) AUTO NEGATIVE (NEGATIVE); KETONE, URINE AUTO TRACE mg/dL (NEGATIVE); LEUKOCYTE ESTERASE, URINE AUTO 2+ (NEGATIVE); MUCUS, URINE LARGE (NEGATIVE); NITRITE, URINE AUTO NEGATIVE (NEGATIVE); PROTEIN, URINE AUTO 1+ mg/dL (NEGATIVE); RBC, URINE AUTO 2 /HPF (0-3); SPECIFIC GRAVITY URINE AUTO 1.029 (1.002-1.035); SQUAMOUS EPITHELIAL CELL UR AU 4 /HPF (0-6); UROBILINOGEN, URINE AUTO 4.0 mg/dL (0.0-2.0); WBC, URINE AUTO 4 /HPF (0-3)
== END ==
LOC: M PLALAB 14:00
PROVIDERS: ATTEND Obstetrics & Gynecology
DX: R30.0 Dysuria (principal)